=== PATIENT | male | born 1990 | race American Indian/Alaskan Native ===

== ENCOUNTER 2016-03-06 14:15 | Emergency (ER) | payer OTHER ==
[2016-03-06 20:01] VITALS: BP 133/85
--- NOTE | 2016-03-06 20:30 | Emergency Department Report ---
HPI - General Chief Complaint: Upper Respiratory Infection Time Seen by Provider: 03/06/16 20:27 - HPI HPI: Patient here complaining of possible syphilis and wants to be checked out. He said his partner has been diagnosed with syphilis. He also states he has of cold times one week. Complaining of cough and runny nose denies any fever or chills. Denies any nausea vomiting or diarrhea. Reports that he's having pain from his penis at 8 out of 10. Denies any urinary burning, frequency or urgency. Denies any abdominal or back pain. Patient said he just wants to be tested for syphilis. Patient is HIV positive. Denies any chest pain or shortness of breath. He denies any penile lesions or sores. Denies any penile discharge. ED Past Medical Hx - Past Medical History Previous Medical History?: Yes Hx Hypertension: No Hx CVA: No Hx Heart Attack/AMI: No Hx Congestive Heart Failure: No Hx Diabetes: No Hx Deep Vein Thrombosis: No Hx Pulmonary Embolism: No Hx GERD: No Hx Liver Disease: No Hx Renal Disease: No Hx Sickle Cell Disease: No Hx Arthritis: No Hx Headaches / Migraines: No Hx Seizures: Yes Hx Kidney Stones: No Hx Psychiatric Treatment: No Hx Asthma: No Hx COPD: No Hx Tuberculosis: No Hx Dementia: No Hx HIV: Yes - Surgical History Past Surgical History?: No Hx Coronary Stent: No Hx Open Heart Surgery: No Hx Pacemaker: No Hx Internal Defibrillator: No Hx Cholecystectomy: No Hx Appendectomy: No Hx Breast Surgery: No - Family History Family history: no significant - Social History Smoking Status: Current Every Day Smoker Substance Use Type: None - Medications Home Medications: Home Medications Medication Instructions Recorded Confirmed Last Taken Type Emtricitab/Rilpivirine/Tenofov 1 tab PO DAILY 08/28/15 08/28/15 Unknown History [Complera Tablet] Sulfamethoxazole/Trimethoprim 1 each PO BID #14 tablet 08/28/15 Unknown Rx [Bactrim DS TAB] Azithromycin [Zithromax Z-LUKE] 250 mg PO DAILY #6 tab 03/06/16 Unknown Rx guaiFENesin/CODEINE [Robitussin AC] 10 ml PO QHS #70 oral.liqd 03/06/16 Unknown Rx ED Review of Systems ROS: Stated complaint: SYPHLLIS/FLU SYMPTOMS Other details as noted in HPI Comment: All other systems reviewed and negative Constitutional: denies: chills, fever, weakness Eyes: denies: eye discharge ENT: congestion. denies: ear pain, throat pain Respiratory: cough. denies: shortness of breath, SOB with exertion, SOB at rest , stridor, wheezing Cardiovascular: denies: chest pain, palpitations, edema, syncope Gastrointestinal: denies: abdominal pain, nausea, vomiting, diarrhea Genitourinary: denies: urgency, dysuria, frequency, hematuria, discharge, testicular pain, testicular mass Skin: denies: rash Neurological: denies: headache, weakness, numbness, paresthesias, confusion, abnormal gait, vertigo Physical Exam - Physical Exam Vital Signs: Vital Signs 03/06/16 03/06/16 14:42 20:00 Temperature 98.3 F 98.3 F Pulse Rate 89 87 Respiratory 16 16 Rate Blood Pressure 142/100 Blood Pressure 133/85 [Right] O2 Sat by Pulse 99 100 Oximetry General: This is a 25-year-old male well-nourished well-developed in no acute distress. Physical Exam: Head: Normocephalic atraumatic Mouth: Moist, no pharyngeal exudate or erythema. Uvula is midline and oral airway is patent. No gingival enlargement or dental tenderness. No facial swelling. No peritonsillar abscesses. Neck: Supple, no C-spine tenderness, no tracheal deviation. Nontender to palpate. no adenopathy Ears: Bilateral TMs congested without erythema .bilateral EAC without any redness swelling or drainage Eyes: Bilateral pupils equal and reactive to light, bilateral EOM intact. Bilateral sclera and conjunctiva without injection. Normal accommodation Nose: Mucosa moist, positive congestion no erythema. Positive clear drainage. maxillary and frontal sinus non-tender to palpate. Lungs: clear to auscultate bilaterally no rhonchi wheezes or rales. Normal work of breathing . Dry cough extremity; No CCE. +2 pulses. No neurovascular compromise Cardiovascular: S1-S2, regular rate rhythm. No murmurs. Skin: clean Dry and intact no rash no lesions Psych: [Normal mood and behavior ED Course Vital Signs 03/06/16 03/06/16 14:42 20:00 Temperature 98.3 F 98.3 F Pulse Rate 89 87 Respiratory 16 16 Rate Blood Pressure 142/100 Blood Pressure 133/85 [Right] O2 Sat by Pulse 99 100 Oximetry - Reevaluation(s) Reevaluation #1: 03/07/16 03:35 Patient had an uneventful ED stay. ED Medical Decision Making - Lab Data RPR pending - Radiology Data Radiology results: report reviewed Chest x-ray revealed no acute cardiopulmonary processes - Medical Decision Making ED course: Patient had RPR level drawn and I discussed with him that test will be done in the morning. I explained to him that lab usually does syphilis tests and mornings. Discussed with him that he will need to come back with his ID to medical record to get test and if he is positive for syphilis been he will need to be treated and he can give treated in emergency room. I also discussed with patient that his chest x-ray was negative for pneumonia he has upper respiratory tract infection and I will put him on antibiotic due to is immunocompromised state. He force understanding of discharge instruction and discharged home with prescription for azithromycin and guaifenesin with codeine Critical care attestation.: If time is entered above; I have spent that time in minutes in the direct care of this critically ill patient, excluding procedure time. ED Disposition Clinical Impression: Upper respiratory infection, acute, Cough, Exposure to syphilis Disposition: DISCHARGED TO HOME OR SELFCARE Is pt being admited?: No Does the pt Need Aspirin: No Condition: Stable Instructions: Upper Respiratory Infection (ED), Acute Cough (ED) Additional Instructions: Please return to the emergency room at about 5 PM tomorrow for check on your lab results. Please practice safe sex. Please take medication as prescribed. Please schedule appointment with primary care physician that I referred you to. Prescriptions: guaiFENesin/CODEINE [Robitussin AC] 10 ml PO QHS #70 oral.liqd Azithromycin [Zithromax Z-LUKE] 250 mg PO DAILY #6 tab Referrals: PRIMARY CAREMD [Primary Care Provider] - 3-5 Days TEREZA CARMONA MD [Staff Physician] - 2-3 Days Forms: Accompanied Note, Work/School Release Form(ED)
--- NOTE | 2016-03-06 22:21 | XRay Report ---
FINAL REPORT PROCEDURE: XR CHEST ROUTINE 2V TECHNIQUE: PA and lateral chest radiographs were obtained. CPT 04728 HISTORY: cough COMPARISON: No prior studies are available for comparison. FINDINGS: Heart: Normal contour. Mediastinum/Vessels: Normal contour. Lungs/Pleural space: No infiltrate, effusion, or pneumothorax. Bony thorax: No acute osseous abnormality. Other: IMPRESSION: No pulmonary infiltrates are identified.
== END 2016-03-06 22:13 | disposition home or self-care (01) ==
LOC: ED 14:15
DX: J06.9 Acute upper respiratory infection, unspecified (principal); R56.9 Unspecified convulsions; F17.200 Nicotine dependence, unspecified, uncomplicated; Z20.2 Contact with and (suspected) exposure to infections with a predominantly sexual mode of transmission; Z21 Asymptomatic human immunodeficiency virus [HIV] infection status
CPT/HCPCS: 36415; 71020; 86592; 99283

== ENCOUNTER 2016-03-07 17:49 | Emergency (ER) | payer OTHER ==
[2016-03-07 18:20] VITALS: BP 137/86
== END 2016-03-08 04:36 | disposition left against medical advice (07) ==
LOC: ED 17:49
DX: Z20.2 Contact with and (suspected) exposure to infections with a predominantly sexual mode of transmission (principal); Z53.21 Procedure and treatment not carried out due to patient leaving prior to being seen by health care provider

== ENCOUNTER 2016-07-08 01:37 | Emergency (ER) | payer SELFPAY ==
[2016-07-08] MEDS ORDERED: TYLENOL ONE (02:34)
[2016-07-08] MEDS ORDERED: TYLENOL PO ONE (02:35)
--- NOTE | 2016-07-08 04:05 | XRay Report ---
FINAL REPORT PROCEDURE: XR WRIST 3 RT TECHNIQUE: RIGHT wrist radiographs, including AP, lateral, oblique, and navicular views. HISTORY: Impact, laceration, send for report COMPARISON: No prior studies are available for comparison. FINDINGS: Fracture(s)and/or Dislocation(s): None. Alignment: Normal. Joint space(s): Normal. Soft tissues: Normal. Bone mineralization: Normal. Foreign bodies: None. IMPRESSION: Normal Examination
--- NOTE | 2016-07-08 04:06 | XRay Report ---
FINAL REPORT PROCEDURE: XR HAND 3 RT TECHNIQUE: RIGHT hand radiographs, AP, lateral, and oblique views. CPT 49339-YY HISTORY: Impact, laceration, send for report COMPARISON: No prior studies are available for comparison. FINDINGS: Fracture (s) and/or Dislocation(s): None . Alignment: Normal . Joint space(s): Normal . Soft tissues: Normal . Bone mineralization: Normal . Foreign bodies: None . IMPRESSION: Normal Examination .
--- NOTE | 2016-07-08 04:08 | XRay Report ---
FINAL REPORT PROCEDURE: XR FOREARM RT TECHNIQUE: RIGHT forearm radiographs, AP and lateral views. CPT 13179 HISTORY: Impact, laceration, send for report COMPARISON: No prior studies are available for comparison. FINDINGS: Fracture (s) and/or Dislocation(s): None . Joint space(s): Normal . Soft tissues: Normal . Bone mineralization: Normal . Foreign bodies: None . IMPRESSION: Normal Examination
[2016-07-08] MEDS ORDERED: NORCO 5/325 PO ONE (06:05)
[2016-07-08] MEDS ORDERED: NORCO 5/325 ONE (06:05)
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
[2016-07-08 07:16] VITALS: BP 148/94
== END 2016-07-08 07:20 | disposition home or self-care (01) ==
LOC: ED 01:37
DX: S51.811A Laceration without foreign body of right forearm, initial encounter (principal); F17.200 Nicotine dependence, unspecified, uncomplicated; F12.10 Cannabis abuse, uncomplicated; W25.XXXA Contact with sharp glass, initial encounter; Y93.89 Activity, other specified; Y92.89 Other specified places as the place of occurrence of the external cause; Y99.8 Other external cause status

== ENCOUNTER 2021-07-22 01:56 | Inpatient (IN) | payer SELFPAY ==
[2021-07-22] MEDS ORDERED: HALOPERIDOL LACTATE 5 MG/1 ML INJ ONE (01:59)
[2021-07-22] MEDS ORDERED: diphenhydrAMINE 50 MG/ML VIAL ONE (02:00)
[2021-07-22] MEDS ORDERED: LORazepam 2 MG/ML VIAL ONE (02:00)
[2021-07-22] MEDS ORDERED: LORazepam 2 MG/ML VIAL IM PRN (02:01)
[2021-07-22] MEDS ORDERED: diphenhydrAMINE 50 MG/ML VIAL IM ONE (02:02)
--- NOTE | 2021-07-22 02:04 | Emergency Department Report ---
ED General Adult HPI - General Chief complaint: Altered Mental Status Stated complaint: psychosis Time Seen by Provider: 07/22/21 02:00 Source: patient, RN notes reviewed Mode of arrival: Stretcher Limitations: Altered Mental Status - History of Present Illness Initial comments: The patient was evaluated in the emergency department for symptoms described in the history of present illness. He/she was evaluated in the context of the global COVID-19 pandemic, which necessitated consideration that the patient might be at risk for infection with the virus that causes COVID-19. Institutional protocols and algorithms that pertain to the evaluation of p atients at risk for COVID-19 are in a state of rapid change based on information released by regulatory bodies including the CDC and federal and state organizations. These policies and algorithms were followed during the patient's care in the emergency department. Please note that these policies, procedures and recommendations changed on a rapid basis. The patient is a 31-year-old gentleman who presented to the emergency room acutely psychotic. Patient currently yelling, screaming, moving 4 extremities and is not interviewable. As per report from triage nurse, the patient ran into the emergency room while naked. He then started to crawl on the floor. He explained that he was having insects running all over him. The patient initially presented as psychotic and acutely delirious. The patient's does not demonstrate decision-making capacity. The patient is not accompanied by friends or family for collateral information or additional information. He was found to be febrile, to 101.4 degrees, tachycardic and diaphoretic. He is initially medicated with haloperidol, Ativan, and Benadryl. He remains agitated, anxious, uncooperative, flailing 4 extremities. No additional history is available at this time. His last known well time is not explicitly known. -: unknown - Related Data Home Medications Medication Instructions Recorded Confirmed Last Taken Emtricita/Rilpivirine/Tenof Df 1 tab PO DAILY 08/28/15 08/28/15 Unknown [Complera Tablet] Previous Rx's Medication Instructions Recorded Last Taken Type Sulfamethoxazole/Trimethoprim 1 each PO BID #14 tablet 08/28/15 Unknown Rx [Bactrim DS TAB] Azithromycin [Zithromax Z-LUKE] 250 mg PO DAILY #6 tab 03/06/16 Unknown Rx guaiFENesin/CODEINE [Robitussin AC] 10 ml PO QHS #70 oral.liqd 03/06/16 Unknown Rx Ibuprofen [Motrin] 600 mg PO Q8H PRN #30 tablet 07/08/16 Unknown Rx Neomycn/Bacitrc/Polymyx/Pramox 28 gm TP BID #1 oint...g. 07/08/16 Unknown Rx [Triple Antibioti-Pain Rlf Oint] cephALEXin [Keflex] 500 mg PO Q12HR #10 cap 07/08/16 Unknown Rx Allergies Allergy/AdvReac Type Severity Reaction Status Date / Time No Known Allergies Allergy Verified 08/08/13 03:03 ED Review of Systems ROS: Stated complaint: DRUGS Other details as noted in HPI Comment: Unobtainable due to pts medical conditions ED Past Medical Hx - Past Medical History Hx Hypertension: No Hx CVA: No Hx Heart Attack/AMI: No Hx Congestive Heart Failure: No Hx Diabetes: No Hx Deep Vein Thrombosis: No Hx Pulmonary Embolism: No Hx GERD: No Hx Liver Disease: No Hx Renal Disease: No Hx Sickle Cell Disease: No Hx Arthritis: No Hx Headaches / Migraines: No Hx Seizures: Yes Hx Kidney Stones: No Hx Psychiatric Treatment: No Hx Asthma: No Hx COPD: No Hx Tuberculosis: No Hx Dementia: No Hx HIV: Yes - Surgical History Hx Coronary Stent: No Hx Open Heart Surgery: No Hx Pacemaker: No Hx Internal Defibrillator: No Hx Cholecystectomy: No Hx Appendectomy: No Hx Breast Surgery: No - Social History Smoking Status: Current Every Day Smoker Substance Use Type: Marijuana - Medications Home Medications: Home Medications Medication Instructions Recorded Confirmed Last Taken Type Emtricita/Rilpivirine/Tenof Df 1 tab PO DAILY 08/28/15 08/28/15 Unknown History [Complera Tablet] Sulfamethoxazole/Trimethoprim 1 each PO BID #14 tablet 08/28/15 Unknown Rx [Bactrim DS TAB] Azithromycin [Zithromax Z-LUKE] 250 mg PO DAILY #6 tab 03/06/16 Unknown Rx guaiFENesin/CODEINE [Robitussin AC] 10 ml PO QHS #70 oral.liqd 03/06/16 Unknown Rx Ibuprofen [Motrin] 600 mg PO Q8H PRN #30 tablet 07/08/16 Unknown Rx Neomycn/Bacitrc/Polymyx/Pramox 28 gm TP BID #1 oint...g. 07/08/16 Unknown Rx [Triple Antibioti-Pain Rlf Oint] cephALEXin [Keflex] 500 mg PO Q12HR #10 cap 07/08/16 Unknown Rx ED Physical Exam - General Limitations: Altered Mental Status General appearance: anxious, in distress - Head Head exam: Present: atraumatic, normocephalic - Eye Eye exam: Present: normal appearance, EOMI - ENT ENT exam: Present: normal orophraynx, mucous membranes moist, normal external ear exam - Neck Neck exam: Present: normal inspection, full ROM. Absent: tenderness, meningismus - Respiratory Respiratory exam: Present: normal lung sounds bilaterally. Absent: respiratory distress, wheezes, rales, rhonchi, stridor, decreased breath sounds - Cardiovascular Cardiovascular Exam: Present: normal rhythm, tachycardia, normal heart sounds. Absent: bradycardia, irregular rhythm, systolic murmur, diastolic murmur, rubs, gallop - GI/Abdominal GI/Abdominal exam: Present: soft. Absent: distended, tenderness, guarding, rebound, rigid, pulsatile mass - Rectal Rectal exam: Present: normal inspection - exam: Present: normal inspection External exam: Present: normal external exam - Extremities Exam Extremities exam: Present: normal inspection, full ROM, other (2+ pulses noted in the bilateral upper and lower extremities. There is no palpable cord. negative Homans sign. Muscular compartments are soft. The pelvis is stable.). Absent: pedal edema, calf tenderness - Back Exam Back exam: Present: normal inspection. Absent: tenderness, CVA tenderness (R), CVA tenderness (L), paraspinal tenderness, vertebral tenderness - Neurological Exam Neurological exam: Present: altered, other (Patient yelling and screaming. Flailing extremities. Making nonsensical statements. 5/5 strength in 4 extremities.) - Psychiatric Psychiatric exam: Present: agitated, anxious - Skin Skin exam: Present: warm, dry, intact, normal color. Absent: rash ED Course Vital Signs 07/22/21 07/22/21 02:15 03:27 Temperature 101.4 F H Pulse Rate 155 H Respiratory 42 H Rate Blood Pressure 114/78 O2 Sat by Pulse 97 99 Oximetry - Reevaluation(s) Reevaluation #1: 07/22/21 03:47 Differential diagnosis, include not limited to: Meningitis, encephalitis, toxic encephalopathy, metabolic encephalopathy Assessment and plan: 31-year-old gentleman presenting with acute febrile illness, delirium, agitation, diaphoresis. Initially medicated with haloperidol, Ativan and Geodon. Still agitated, combative and uncooperative, and lacks decision-making capacity. Given concern for meningitis/encephalitis, time sensitive nature, need to establish IV access, and initiate IV antibiotic therapy as well as fluids, in conjunction with concern that repeat sedation to dangers, decision made to protect airway, and intubate for patient's safety, acquisition of appropriate diagnostic studies, including spinal tap, and administration of fluids, antibiotics and supportive care. Patient intubated by myself with 1 attempt, and no obvious complications. Given that patient presents as acutely febrile and delirious/septic, he is emergently and administratively consented by myself for airway management, as well as spinal tap. Laboratory studies are reviewed and appreciated. X-ray of the chest is reviewed and appreciated. Noncontrast CT scan of the brain is pending. I discussed the patient's history, physical, clinical impression with both hospital physician, Dr. Elma Mitchell, As well as critical care physician, Dr. Shae Batemanoke The chiropractor sole practitioner agrees to consult on the patient, and agrees with admission into the intensive care unit. The hospital physician will admit this patient to the ICU. Patient is placed on a 1013 by myself, once medically optimized, defer to inpatient team to further follow-up on psychiatric recommendations 07/22/21 04:36 CT scan of the brain negative for acute findings. Lumbar puncture attempted, please see procedure note. Unsuccessful. Hospital team updated. RPR/syphilis screen appreciated. Defer to inpatient team to further follow-up and manage. - Intubation Time Out Performed: No (Emergency situation) Sedative: Ketamine (500 mg IM) Mg Given: 500 Paralytic: Rocuronium (150 mg) Laryngoscope: fiberoptic video scope Size: 4 ET Tube Size: 7.5 Tube Secured Depth (cm): 24 Tube Secured Location: lips Tube Placement Confirmation: visualized tube passing t, equal breath sounds bilat, no breath sounds over epi Patient Tolerated Procedure: well Intubation Complications: none Additional Comments: Patient placed on nasal cannula at 15 L/min. Receives [id number] ventilation. Received 500 mg of IM ketamine. Received 150 mg of intravenous rocuronium. Video laryngoscopy performed with a S4 curved video laryngoscope blade. A 7.5 endotracheal tube is gently inserted into the trachea under direct visualizat ion. Helium Arc Welder balloon inflated by respiratory therapy. There is appropriate end- tidal capnography color change. Breath sounds are appreciated bilaterally. No obvious complications - Lumbar Puncture Consent Obtained: emergent situation Indication for Procedure: headache, fever work up, change in mental status Patient Position: left lateral decubitus Skin Prep: Povidone-Iodine 1% Local Anesthetic Used: Lidocaine 1% Amount of anesthesia used (mls): 8 Spinal Needle Gauge: 20G Spinal Needle Length: 3in Interspace Used: L4-L5 Complications: unable to obtain CSF Patient Tolerated Procedure: well ED Medical Decision Making - Lab Data Result diagrams: 07/22/21 02:45 07/22/21 02:45 Vital Signs 07/22/21 07/22/21 02:15 03:27 Temperature 101.4 F H Pulse Rate 155 H Respiratory 42 H Rate Blood Pressure 114/78 O2 Sat by Pulse 97 99 Oximetry Lab Results 07/22/21 07/22/21 07/22/21 Range/Units 02:45 02:45 02:45 WBC 7.6 (4.5-11.0) K/mm3 RBC 5.43 H (3.65-5.03) M/mm3 Hgb 12.4 (11.8-15.2) gm/dl Hct 39.7 (35.5-45.6) % MCV 73 L (84-94) fl MCH 23 L (28-32) pg MCHC 31 L (32-34) % RDW 15.5 H (13.2-15.2) % Plt Count 245 (140-440) K/mm3 Lymph % (Auto) 21.1 (13.4-35.0) % Mellette % (Auto) 7.9 H (0.0-7.3) % Eos % (Auto) 0.8 (0.0-4.3) % Baso % (Auto) 0.2 (0.0-1.8) % Lymph # (Auto) 1.6 (1.2-5.4) K/mm3 Mellette # (Auto) 0.6 (0.0-0.8) K/mm3 Eos # (Auto) 0.1 (0.0-0.4) K/mm3 Baso # (Auto) 0.0 (0.0-0.1) K/mm3 Seg Neutrophils % 70.0 (40.0-70.0) % Seg Neutrophils # 5.3 (1.8-7.7) K/mm3 PT (12.2-14.9) Sec. INR (0.87-1.13) APTT (24.2-36.6) Sec. ABG pH (7.350-7.450) pH Units ABG pCO2 mm Hg ABG pO2 (80.0-90.0) mm Hg ABG HCO3 (20.0-26.0) mmol/L ABG O2 Saturation (95.0-99.0) % ABG O2 Content (0.0-44) ABG Base Excess (-2.0-3.0) mmol/L ABG Hemoglobin (14.0-18.0) gm/dl ABG Carboxyhemoglobin (0.0-5.0) % ABG Methemoglobin (0.0-1.5) % Oxyhemoglobin (95.0-99.0) % FiO2 % Sodium 141 (137-145) mmol/L Potassium 4.0 (3.6-5.0) mmol/L Chloride 99.9 (98-107) mmol/L Carbon Dioxide 16 L (22-30) mmol/L Anion Gap 29 mmol/L BUN 12 (9-20) mg/dL Creatinine 1.5 H (0.8-1.3) mg/dL Estimated GFR > 60 ml/min BUN/Creatinine Ratio 8 % Glucose 89 (75-100) mg/dL Calcium 9.3 (8.4-10.2) mg/dL Total Bilirubin 0.50 (0.1-1.2) mg/dL AST 29 (5-40) units/L ALT 19 (7-56) units/L Alkaline Phosphatase 67 (35-129) units/L Total Creatine Kinase (55-170) units/L Total Protein 8.3 H (6.3-8.2) g/dL Albumin 4.3 (3.9-5) g/dL Albumin/Globulin Ratio 1.1 % TSH 3.360 (0.270-4.200) mlU/mL Urine Color (Yellow) Urine Turbidity (Clear) Urine pH (5.0-7.0) Ur Specific Severance (1.003-1.030) Urine Protein (Negative) mg/dL Urine Glucose (UA) (Negative) mg/dL Urine Ketones (Negative) mg/dL Urine Blood (Negative) Urine Nitrite (Negative) Urine Bilirubin (Negative) Urine Urobilinogen (<2.0) mg/dL Ur Leukocyte Esterase (Negative) Urine WBC (Auto) (0.0-6.0) /HPF Urine RBC (Auto) (0.0-6.0) /HPF U Epithel Cells (Auto) (0-13.0) /HPF Urine Bacteria (Auto) (Negative) /HPF Urine Mucus /HPF Salicylates (2.8-20.0) mg/dL Urine Opiates Screen Urine Methadone Screen Acetaminophen (10.0-30.0) ug/mL Ur Barbiturates Screen Ur Phencyclidine Scrn Ur Amphetamines Screen U Benzodiazepines Scrn Urine Cocaine Screen U Marijuana (THC) Screen Plasma/Serum Alcohol (0-0.07) % Syphilis IgG/IgM Ab (NonReactive) 07/22/21 07/22/21 07/22/21 Range/Units 02:45 02:45 02:45 WBC (4.5-11.0) K/mm3 RBC (3.65-5.03) M/mm3 Hgb (11.8-15.2) gm/dl Hct (35.5-45.6) % MCV (84-94) fl MCH (28-32) pg MCHC (32-34) % RDW (13.2-15.2) % Plt Count (140-440) K/mm3 Lymph % (Auto) (13.4-35.0) % Mellette % (Auto) (0.0-7.3) % Eos % (Auto) (0.0-4.3) % Baso % (Auto) (0.0-1.8) % Lymph # (Auto) (1.2-5.4) K/mm3 Mellette # (Auto) (0.0-0.8) K/mm3 Eos # (Auto) (0.0-0.4) K/mm3 Baso # (Auto) (0.0-0.1) K/mm3 Seg Neutrophils % (40.0-70.0) % Seg Neutrophils # (1.8-7.7) K/mm3 PT (12.2-14.9) Sec. INR (0.87-1.13) APTT (24.2-36.6) Sec. ABG pH (7.350-7.450) pH Units ABG pCO2 mm Hg ABG pO2 (80.0-90.0) mm Hg ABG HCO3 (20.0-26.0) mmol/L ABG O2 Saturation (95.0-99.0) % ABG O2 Content (0.0-44) ABG Base Excess (-2.0-3.0) mmol/L ABG Hemoglobin (14.0-18.0) gm/dl ABG Carboxyhemoglobin (0.0-5.0) % ABG Methemoglobin (0.0-1.5) % Oxyhemoglobin (95.0-99.0) % FiO2 % Sodium (137-145) mmol/L Potassium (3.6-5.0) mmol/L Chloride (98-107) mmol/L Carbon Dioxide (22-30) mmol/L Anion Gap mmol/L BUN (9-20) mg/dL Creatinine (0.8-1.3) mg/dL Estimated GFR ml/min BUN/Creatinine Ratio % Glucose (75-100) mg/dL Calcium (8.4-10.2) mg/dL Total Bilirubin (0.1-1.2) mg/dL AST (5-40) units/L ALT (7-56) units/L Alkaline Phosphatase (35-129) units/L Total Creatine Kinase 843 H (55-170) units/L Total Protein (6.3-8.2) g/dL Albumin (3.9-5) g/dL Albumin/Globulin Ratio % TSH (0.270-4.200) mlU/mL Urine Color (Yellow) Urine Turbidity (Clear) Urine pH (5.0-7.0) Ur Specific Severance (1.003-1.030) Urine Protein (Negative) mg/dL Urine Glucose (UA) (Negative) mg/dL Urine Ketones (Negative) mg/dL Urine Blood (Negative) Urine Nitrite (Negative) Urine Bilirubin (Negative) Urine Urobilinogen (<2.0) mg/dL Ur Leukocyte Esterase (Negative) Urine WBC (Auto) (0.0-6.0) /HPF Urine RBC (Auto) (0.0-6.0) /HPF U Epithel Cells (Auto) (0-13.0) /HPF Urine Bacteria (Auto) (Negative) /HPF Urine Mucus /HPF Salicylates < 0.3 L (2.8-20.0) mg/dL Urine Opiates Screen Urine Methadone Screen Acetaminophen 5.0 L (10.0-30.0) ug/mL Ur Barbiturates Screen Ur Phencyclidine Scrn Ur Amphetamines Screen U Benzodiazepines Scrn Urine Cocaine Screen U Marijuana (THC) Screen Plasma/Serum Alcohol (0-0.07) % Syphilis IgG/IgM Ab (NonReactive) 07/22/21 07/22/21 07/22/21 Range/Units 02:45 02:45 02:45 WBC (4.5-11.0) K/mm3 RBC (3.65-5.03) M/mm3 Hgb (11.8-15.2) gm/dl Hct (35.5-45.6) % MCV (84-94) fl MCH (28-32) pg MCHC (32-34) % RDW (13.2-15.2) % Plt Count (140-440) K/mm3 Lymph % (Auto) (13.4-35.0) % Mellette % (Auto) (0.0-7.3) % Eos % (Auto) (0.0-4.3) % Baso % (Auto) (0.0-1.8) % Lymph # (Auto) (1.2-5.4) K/mm3 Mellette # (Auto) (0.0-0.8) K/mm3 Eos # (Auto) (0.0-0.4) K/mm3 Baso # (Auto) (0.0-0.1) K/mm3 Seg Neutrophils % (40.0-70.0) % Seg Neutrophils # (1.8-7.7) K/mm3 PT 13.0 (12.2-14.9) Sec. INR 0.89 (0.87-1.13) APTT 25.8 (24.2-36.6) Sec. ABG pH (7.350-7.450) pH Units ABG pCO2 mm Hg ABG pO2 (80.0-90.0) mm Hg ABG HCO3 (20.0-26.0) mmol/L ABG O2 Saturation (95.0-99.0) % ABG O2 Content (0.0-44) ABG Base Excess (-2.0-3.0) mmol/L ABG Hemoglobin (14.0-18.0) gm/dl ABG Carboxyhemoglobin (0.0-5.0) % ABG Methemoglobin (0.0-1.5) % Oxyhemoglobin (95.0-99.0) % FiO2 % Sodium (137-145) mmol/L Potassium (3.6-5.0) mmol/L Chloride (98-107) mmol/L Carbon Dioxide (22-30) mmol/L Anion Gap mmol/L BUN (9-20) mg/dL Creatinine (0.8-1.3) mg/dL Estimated GFR ml/min BUN/Creatinine Ratio % Glucose (75-100) mg/dL Calcium (8.4-10.2) mg/dL Total Bilirubin (0.1-1.2) mg/dL AST (5-40) units/L ALT (7-56) units/L Alkaline Phosphatase (35-129) units/L Total Creatine Kinase (55-170) units/L Total Protein (6.3-8.2) g/dL Albumin (3.9-5) g/dL Albumin/Globulin Ratio % TSH (0.270-4.200) mlU/mL Urine Color (Yellow) Urine Turbidity (Clear) Urine pH (5.0-7.0) Ur Specific Severance (1.003-1.030) Urine Protein (Negative) mg/dL Urine Glucose (UA) (Negative) mg/dL Urine Ketones (Negative) mg/dL Urine Blood (Negative) Urine Nitrite (Negative) Urine Bilirubin (Negative) Urine Urobilinogen (<2.0) mg/dL Ur Leukocyte Esterase (Negative) Urine WBC (Auto) (0.0-6.0) /HPF Urine RBC (Auto) (0.0-6.0) /HPF U Epithel Cells (Auto) (0-13.0) /HPF Urine Bacteria (Auto) (Negative) /HPF Urine Mucus /HPF Salicylates (2.8-20.0) mg/dL Urine Opiates Screen Urine Methadone Screen Acetaminophen (10.0-30.0) ug/mL Ur Barbiturates Screen Ur Phencyclidine Scrn Ur Amphetamines Screen U Benzodiazepines Scrn Urine Cocaine Screen U Marijuana (THC) Screen Plasma/Serum Alcohol < 0.01 (0-0.07) % Syphilis IgG/IgM Ab Reactive A (NonReactive) 07/22/21 07/22/21 07/22/21 Range/Units 03:00 03:09 Unknown WBC (4.5-11.0) K/mm3 RBC (3.65-5.03) M/mm3 Hgb (11.8-15.2) gm/dl Hct (35.5-45.6) % MCV (84-94) fl MCH (28-32) pg MCHC (32-34) % RDW (13.2-15.2) % Plt Count (140-440) K/mm3 Lymph % (Auto) (13.4-35.0) % Mellette % (Auto) (0.0-7.3) % Eos % (Auto) (0.0-4.3) % Baso % (Auto) (0.0-1.8) % Lymph # (Auto) (1.2-5.4) K/mm3 Mellette # (Auto) (0.0-0.8) K/mm3 Eos # (Auto) (0.0-0.4) K/mm3 Baso # (Auto) (0.0-0.1) K/mm3 Seg Neutrophils % (40.0-70.0) % Seg Neutrophils # (1.8-7.7) K/mm3 PT (12.2-14.9) Sec. INR (0.87-1.13) APTT (24.2-36.6) Sec. ABG pH 7.301 L (7.350-7.450) pH Units ABG pCO2 40.9 mm Hg ABG pO2 458.9 H (80.0-90.0) mm Hg ABG HCO3 19.7 L (20.0-26.0) mmol/L ABG O2 Saturation 99.6 H (95.0-99.0) % ABG O2 Content 16.9 (0.0-44) ABG Base Excess -6.3 L (-2.0-3.0) mmol/L ABG Hemoglobin 11.4 L (14.0-18.0) gm/dl ABG Carboxyhemoglobin 1.5 (0.0-5.0) % ABG Methemoglobin 0.6 (0.0-1.5) % Oxyhemoglobin 97.5 (95.0-99.0) % FiO2 100 % Sodium (137-145) mmol/L Potassium (3.6-5.0) mmol/L Chloride (98-107) mmol/L Carbon Dioxide (22-30) mmol/L Anion Gap mmol/L BUN (9-20) mg/dL Creatinine (0.8-1.3) mg/dL Estimated GFR ml/min BUN/Creatinine Ratio % Glucose (75-100) mg/dL Calcium (8.4-10.2) mg/dL Total Bilirubin (0.1-1.2) mg/dL AST (5-40) units/L ALT (7-56) units/L Alkaline Phosphatase (35-129) units/L Total Creatine Kinase (55-170) units/L Total Protein (6.3-8.2) g/dL Albumin (3.9-5) g/dL Albumin/Globulin Ratio % TSH (0.270-4.200) mlU/mL Urine Color Yellow (Yellow) Urine Turbidity Clear (Clear) Urine pH 5.0 (5.0-7.0) Ur Specific Severance 1.024 (1.003-1.030) Urine Protein 30 mg/dl (Negative) mg/dL Urine Glucose (UA) Neg (Negative) mg/dL Urine Ketones Tr (Negative) mg/dL Urine Blood Neg (Negative) Urine Nitrite Neg (Negative) Urine Bilirubin Neg (Negative) Urine Urobilinogen 4.0 (<2.0) mg/dL Ur Leukocyte Esterase Neg (Negative) Urine WBC (Auto) 6.0 (0.0-6.0) /HPF Urine RBC (Auto) 2.0 (0.0-6.0) /HPF U Epithel Cells (Auto) < 1.0 (0-13.0) /HPF Urine Bacteria (Auto) 1+ (Negative) /HPF Urine Mucus Few /HPF Salicylates (2.8-20.0) mg/dL Urine Opiates Screen Urine Methadone Screen Acetaminophen 5.0 L (10.0-30.0) ug/mL Ur Barbiturates Screen Ur Phencyclidine Scrn Ur Amphetamines Screen U Benzodiazepines Scrn Urine Cocaine Screen U Marijuana (THC) Screen Plasma/Serum Alcohol (0-0.07) % Syphilis IgG/IgM Ab (NonReactive) 07/22/21 Range/Units Unknown WBC (4.5-11.0) K/mm3 RBC (3.65-5.03) M/mm3 Hgb (11.8-15.2) gm/dl Hct (35.5-45.6) % MCV (84-94) fl MCH (28-32) pg MCHC (32-34) % RDW (13.2-15.2) % Plt Count (140-440) K/mm3 Lymph % (Auto) (13.4-35.0) % Mellette % (Auto) (0.0-7.3) % Eos % (Auto) (0.0-4.3) % Baso % (Auto) (0.0-1.8) % Lymph # (Auto) (1.2-5.4) K/mm3 Mellette # (Auto) (0.0-0.8) K/mm3 Eos # (Auto) (0.0-0.4) K/mm3 Baso # (Auto) (0.0-0.1) K/mm3 Seg Neutrophils % (40.0-70.0) % Seg Neutrophils # (1.8-7.7) K/mm3 PT (12.2-14.9) Sec. INR (0.87-1.13) APTT (24.2-36.6) Sec. ABG pH (7.350-7.450) pH Units ABG pCO2 mm Hg ABG pO2 (80.0-90.0) mm Hg ABG HCO3 (20.0-26.0) mmol/L ABG O2 Saturation (95.0-99.0) % ABG O2 Content (0.0-44) ABG Base Excess (-2.0-3.0) mmol/L ABG Hemoglobin (14.0-18.0) gm/dl ABG Carboxyhemoglobin (0.0-5.0) % ABG Methemoglobin (0.0-1.5) % Oxyhemoglobin (95.0-99.0) % FiO2 % Sodium (137-145) mmol/L Potassium (3.6-5.0) mmol/L Chloride (98-107) mmol/L Carbon Dioxide (22-30) mmol/L Anion Gap mmol/L BUN (9-20) mg/dL Creatinine (0.8-1.3) mg/dL Estimated GFR ml/min BUN/Creatinine Ratio % Glucose (75-100) mg/dL Calcium (8.4-10.2) mg/dL Total Bilirubin (0.1-1.2) mg/dL AST (5-40) units/L ALT (7-56) units/L Alkaline Phosphatase (35-129) units/L Total Creatine Kinase (55-170) units/L Total Protein (6.3-8.2) g/dL Albumin (3.9-5) g/dL Albumin/Globulin Ratio % TSH (0.270-4.200) mlU/mL Urine Color (Yellow) Urine Turbidity (Clear) Urine pH (5.0-7.0) Ur Specific Severance (1.003-1.030) Urine Protein (Negative) mg/dL Urine Glucose (UA) (Negative) mg/dL Urine Ketones (Negative) mg/dL Urine Blood (Negative) Urine Nitrite (Negative) Urine Bilirubin (Negative) Urine Urobilinogen (<2.0) mg/dL Ur Leukocyte Esterase (Negative) Urine WBC (Auto) (0.0-6.0) /HPF Urine RBC (Auto) (0.0-6.0) /HPF U Epithel Cells (Auto) (0-13.0) /HPF Urine Bacteria (Auto) (Negative) /HPF Urine Mucus /HPF Salicylates (2.8-20.0) mg/dL Urine Opiates Screen Presumptive negative Urine Methadone Screen Presumptive negative Acetaminophen (10.0-30.0) ug/mL Ur Barbiturates Screen Presumptive negative Ur Phencyclidine Scrn Presumptive negative Ur Amphetamines Screen Presumptive positive U Benzodiazepines Scrn Presumptive negative Urine Cocaine Screen Presumptive negative U Marijuana (THC) Screen Presumptive positive Plasma/Serum Alcohol (0-0.07) % Syphilis IgG/IgM Ab (NonReactive) - Radiology Data Radiology results: pending, report reviewed, image reviewed CHEST 1 VIEW INDICATION / CLINICAL INFORMATION: ett placement. COMPARISON: Chest x-ray 03/06/2016 FINDINGS: SUPPORT DEVICES: Endotracheal tube terminates at the sternoclavicular junction. 7-8 cm above the star. Esophagogastric tube and left hemidiaphragm within the proximal fundus. HEART / MEDIASTINUM: No significant abnormality. LUNGS / PLEURA: No significant pulmonary abnormality. BONES: No significant osseous abnormality. ADDITIONAL FINDINGS: No significant additional findings. IMPRESSION: 1. No active cardiopulmonary disease. Tubes and lines as detailed. Signer Name: Kyle Avila II, MD Signed: 07/22 1:52 AM Workstation Name: [id number] Critical Care Time: Yes Critical care time in (mins) excluding proc time.: 45 Critical care attestation.: If time is entered above; I have spent that time in minutes in the direct care of this critically ill patient, excluding procedure time. ED Disposition Clinical Impression: Sepsis, Psychosis, Acute encephalopathy Disposition: ADMITTED INPATIENT Is pt being admited?: Yes Does the pt Need Aspirin: No Condition: Critical
[2021-07-22] MEDS ORDERED: cefTRIAXone/NS 2 GM/100 ML 2 GM/100 ML BAG IV ONE (02:08)
[2021-07-22] MEDS ORDERED: dexAMETHasone 20 MG/5 ML VIAL IV ONE (02:08)
[2021-07-22] MEDS ORDERED: SODIUM CHLORIDE 0.9% 1000 ML 1,000 ML IV ONE (02:09)
[2021-07-22] MEDS ORDERED: SODIUM CHLORIDE 0.9% 1000 ML 2,000 ML IV ONE (02:09)
[2021-07-22] MEDS: HALOPERIDOL LACTATE 5 MG/1 ML INJ IM PRN (02:10)
[2021-07-22] MEDS ORDERED: KETAMINE 500 MG/5 ML VIAL MDV ONE (02:13)
[2021-07-22] MEDS ORDERED: ROCURONIUM 50 MG/5 ML INJ IV ONE ×3 (02:13→03:22)
[2021-07-22] MEDS ORDERED: LIP THERAPY VASELINE TP PRN (02:26)
[2021-07-22] MEDS ORDERED: fentaNYL 100 MCG/2 ML INJ IV PRN (02:26)
[2021-07-22] MEDS ORDERED: LIDOCAINE (1%) 10 MG/1 ML VIAL 20 ML MDV INFILTRATI ONE (02:26)
[2021-07-22] MEDS ORDERED: MINERAL OIL/PETROLATUM, WHITE OPHTH OINT 3.5 GM OU PRN (02:26)
[2021-07-22] MEDS ORDERED: ACYCLOVIR 800 MG in SODIUM CHLORIDE 0.9% 100 ML IV ONE (02:38)
--- NOTE | 2021-07-22 02:56 | XRay Report ---
CHEST 1 VIEW INDICATION / CLINICAL INFORMATION: ett placement. COMPARISON: Chest x-ray 03/06/2016 FINDINGS: SUPPORT DEVICES: Endotracheal tube terminates at the sternoclavicular junction. 7-8 cm above the francois na. Esophagogastric tube and left hemidiaphragm within the proximal fundus. HEART / MEDIASTINUM: No significant abnormality. LUNGS / PLEURA: No significant pulmonary abnormality. BONES: No significant osseous abnormality. ADDITIONAL FINDINGS: No significant additional findings. IMPRESSION: 1. No active cardiopulmonary disease. Tubes and lines as detailed. Signer Name: Kyle Avila II, MD Signed: 07/22/2021 2:52 AM Workstation Name: [id number]
[2021-07-22 02:57] LABS: Basophils % (Auto) 0.2 % (0.0-1.8); Eosinophils # (Auto) 0.1 K/mm3 (0.0-0.4); Eosinophils % (Auto) 0.8 % (0.0-4.3); Hematocrit 39.7 % (35.5-45.6); Hemoglobin 12.4 gm/dl (11.8-15.2); Lymphocytes # (Auto) 1.6 K/mm3 (1.2-5.4); Lymphocytes % (Auto) 21.1 % (13.4-35.0); Mean Corpuscular HGB Conc 31 % (32-34); Mean Corpuscular Volume 73 fl (84-94); Monocytes # (Auto) 0.6 K/mm3 (0.0-0.8); Monocytes % (Auto) 7.9 % (0.0-7.3); Platelet Count 245 K/mm3 (140-440); Red Blood Count 5.43 M/mm3 (3.65-5.03); Red Cell Distribution Width 15.5 % (13.2-15.2)
[2021-07-22] MEDS ORDERED: fentaNYL DRIP Premix 2,000 MCG/100 ML BAG IV SCH (03:00)
[2021-07-22 03:04] LABS: Bacteria,Urine 1+ /HPF (Negative); Bilirubin,Urine NEG (Negative); Blood,Urine NEG (Negative); Color,Urine Yellow (Yellow); Mucus,Urine FEW /HPF
[2021-07-22 03:08] LABS: INR 0.89 (0.87-1.13)
[2021-07-22 03:08] LABS: Amphetamine Screen,Urine PRESUMPTIVE POSITIVE; Benzodiazepines Screen,Urine PRESUMPTIVE NEGATIVE; Cannabinoid Screen,Urine PRESUMPTIVE POSITIVE; Cocaine Screen,Urine PRESUMPTIVE NEGATIVE; Methadone Screen,Urine PRESUMPTIVE NEGATIVE; Opiate Screen,Urine PRESUMPTIVE NEGATIVE
[2021-07-22] MEDS ORDERED: VANCOMYCIN 1,500 MG in SODIUM CHLORIDE 0.9% 500 ML 500 ML IV ONE (03:08)
[2021-07-22 03:09] LABS: Partial Thromboplastin Time 25.8 Sec. (24.2-36.6)
[2021-07-22 03:20] LABS: Alanine Aminotransferase 19 units/L (7-56); Albumin 4.3 g/dL (3.9-5); BUN/Creatinine Ratio 8; Blood Urea Nitrogen 12 mg/dL (9-20); Calcium 9.3 mg/dL (8.4-10.2); Hemolysis Index 9
[2021-07-22] MEDS ORDERED: KETAMINE 500 MG/5 ML VIAL MDV IM ONE (03:22)
[2021-07-22 03:35] LABS: ABG Base Excess -6.3 mmol/L (-2.0-3.0); ABG HCO3 19.7 mmol/L (20.0-26.0); ABG Methemoglobin 0.6 % (0.0-1.5); ABG Oxygen Saturation 99.6 % (95.0-99.0); ABG PCO2 40.9 mm Hg; ABG PH 7.301 pH Units (7.350-7.450)
[2021-07-22] MEDS ORDERED: ACETAMINOPHEN 650 MG RECT SUPP PR ONE (03:36)
[2021-07-22 03:41] LABS: ABG PO2 458.9 mm Hg (80.0-90.0)
[2021-07-22] MEDS ORDERED: ONDANSETRON 4 MG/2 ML INJ IV PRN (04:03)
[2021-07-22] MEDS ORDERED: MORPHINE 2 MG/1 ML INJ IV PRN (04:03)
[2021-07-22] MEDS ORDERED: MORPHINE 4 MG/1 ML INJ IV PRN (04:03)
[2021-07-22] MEDS ORDERED: ACETAMINOPHEN 650 MG RECT SUPP PR PRN (04:03)
--- NOTE | 2021-07-22 04:12 | History and Physical Report ---
History of Present Illness Date of examination: 07/22/21 Date of admission: 07/22/2021 Chief complaint: Altered Mental Status History of present illness: 31-year-old -[place] male brought into the emergency room today with altered mental status. He was acutely delirious upon arrival in the emergency room. Most of the history was gotten from the ER staff as there was no family member patient currently intubated. He was said to be febrile to 101.4 F upon arrival, tachycardic and diaphoretic. Was also said to be acutely psychotic and subsequently intubated to protect his airway. Work-up in the emergency room today, CT scan of the head shows no acute abnormality. Chest x-ray shows no acute cardiopulmonary abnormality. Labs however shows lactic acid of 11.2, creatinine of 1.5, creatinine kinase of 843. Toxicology screen was positive for amphetamine, marijuana. An attempt was made to do a spinal tap by the ER physician over so successful. However, patient was commenced on empiric IV antibiotics for possible underlying meningitis. Past History Past Medical History: HIV/AIDS, seizures Past Surgical History: No surgical history Social history: smoking (Current daily smoker), other (Uses Marijuana) Family history: no significant family history Medications and Allergies Allergies Allergy/AdvReac Type Severity Reaction Status Date / Time No Known Allergies Allergy Verified 08/08/13 03:03 Home Medications Medication Instructions Recorded Confirmed Last Taken Type Emtricita/Rilpivirine/Tenof Df 1 tab PO DAILY 08/28/15 08/28/15 Unknown History [Complera Tablet] Sulfamethoxazole/Trimethoprim 1 each PO BID #14 tablet 08/28/15 Unknown Rx [Bactrim DS TAB] Azithromycin [Zithromax Z-LUKE] 250 mg PO DAILY #6 tab 03/06/16 Unknown Rx guaiFENesin/CODEINE [Robitussin AC] 10 ml PO QHS #70 oral.liqd 03/06/16 Unknown Rx Ibuprofen [Motrin] 600 mg PO Q8H PRN #30 tablet 07/08/16 Unknown Rx Neomycn/Bacitrc/Polymyx/Pramox 28 gm TP BID #1 oint...g. 07/08/16 Unknown Rx [Triple Antibioti-Pain Rlf Oint] cephALEXin [Keflex] 500 mg PO Q12HR #10 cap 07/08/16 Unknown Rx Active Meds: Active Medications Acetaminophen (Acetaminophen 650 Mg Rect Supp) 650 mg OK Q6H PRN PRN Reason: Pain MILD(1-3)/Fever >100.5/ALBERT Famotidine (Famotidine 20 Mg/2 Ml Inj) 20 mg IV BID AMOS Fentanyl (Fentanyl 100 Mcg/2 Ml Inj) 50 mcg IV Q10MIN PRN PRN Reason: ANALGESIA Haloperidol Lactate (Haloperidol Lactate 5 Mg/1 Ml Inj) 5 mg IM Q6HR PRN PRN Reason: Agitation Hydrophilic Ointment (Lip Therapy Vaseline) 1 applic TP Q2HR PRN PRN Reason: Dry Lips Vancomycin HCl 1,500 mg/ (Sodium Chloride) 530 mls @ 333 mls/hr IV ONCE ONE; Protocol Stop: 07/22/21 04:43 Fentanyl Citrate (Fentanyl Drip Premix) 2,000 mcg in 100 mls @ 3.43 mls/hr IV TITR AMOS; Protocol Propofol (Diprivan 10 Mg/Ml) 1,000 mg in 100 mls @ 12.348 mls/hr IV TITR AMOS; Protocol Last Admin: 07/22/21 03:10 Dose: 30 mcg/kg/min, 12.348 mls/hr Sodium Chloride (Nacl 0.9% 1000 Ml) 1,000 mls @ 75 mls/hr IV DIRECT AMOS Lorazepam (Lorazepam 2 Mg/Ml Vial) 2 mg IM Q4HR PRN PRN Reason: Agitation Morphine Sulfate (Morphine 2 Mg/1 Ml Inj) 2 mg IV Q4H PRN PRN Reason: Pain, Moderate (4-6) Morphine Sulfate (Morphine 4 Mg/1 Ml Inj) 4 mg IV Q4H PRN PRN Reason: Pain , Severe (7-10) Multi-Ingred Cream/Lotion/Oil/Oint (Mineral Oil/Petrolatum, White Ophth Oint 3.5 Gm) 1 applic OU Q4HR PRN PRN Reason: Dry Eye(s) Ondansetron HCl (Ondansetron 4 Mg/2 Ml Inj) 4 mg IV Q8H PRN PRN Reason: Nausea And Vomiting Senna/Docusate Sodium (Sennosides/Docusate Sodium 8.6/50 Mg Tab) 1 tab FEEDTUBE BID AMOS Sodium Chloride (Sodium Chloride 0.9% 10 Ml Flush Syringe) 10 ml IV BID AMOS Sodium Chloride (Sodium Chloride 0.9% 10 Ml Flush Syringe) 10 ml IV PRN PRN PRN Reason: LINE FLUSH Review of Systems ROS unobtainable: due to endotracheal tube, due to mental status Exam - Constitutional Vitals: Temp Pulse Resp BP Pulse Ox 101.4 F H 155 H 42 H 114/78 99 07/22/21 02:15 07/22/21 02:15 07/22/21 02:15 07/22/21 02:15 07/22/21 03:27 General appearance: Present: well-nourished, other (Intubated) - EENT Eyes: Present: PERRL, EOM intact. Absent: scleral icterus ENT: hearing intact, clear oral mucosa, dentition normal - Neck Neck: Present: supple, normal ROM - Respiratory Respiratory effort: normal Respiratory: bilateral: CTA - Cardiovascular Rhythm: regular Heart Sounds: Present: S1 & S2. Absent: systolic murmur, diastolic murmur, rub, click - Extremities Extremities: no ischemia, pulses intact, pulses symmetrical, No edema, normal temperature, normal color, Full ROM Peripheral Pulses: within normal limits - Abdominal General gastrointestinal: Present: soft, non-tender, non-distended, normal bowel sounds. Absent: mass - Integumentary Integumentary: Present: clear, warm, dry, normal turgor. Absent: rash - Musculoskeletal Musculoskeletal: other (Intubated) - Psychiatric Psychiatric: cooperative, other (Intubated and Sedated) - Neurologic Neurologic: other (Intubated and Sedated) Results - Labs CBC & Chem 7: 07/22/21 02:45 07/22/21 02:45 Labs: Abnormal lab results 07/22/21 07/22/21 07/22/21 Range/Units 02:45 02:45 02:45 RBC 5.43 H (3.65-5.03) M/mm3 MCV 73 L (84-94) fl MCH 23 L (28-32) pg MCHC 31 L (32-34) % RDW 15.5 H (13.2-15.2) % [place] % (Auto) 7.9 H (0.0-7.3) % ABG pH (7.350-7.450) pH Units ABG pO2 (80.0-90.0) mm Hg ABG HCO3 (20.0-26.0) mmol/L ABG O2 Saturation (95.0-99.0) % ABG Base Excess (-2.0-3.0) mmol/L ABG Hemoglobin (14.0-18.0) gm/dl Carbon Dioxide 16 L (22-30) mmol/L Creatinine 1.5 H (0.8-1.3) mg/dL Total Creatine Kinase (55-170) units/L Total Protein 8.3 H (6.3-8.2) g/dL Salicylates < 0.3 L (2.8-20.0) mg/dL Acetaminophen (10.0-30.0) ug/mL Syphilis IgG/IgM Ab (NonReactive) 07/22/21 07/22/21 07/22/21 Range/Units 02:45 02:45 02:45 RBC (3.65-5.03) M/mm3 MCV (84-94) fl MCH (28-32) pg MCHC (32-34) % RDW (13.2-15.2) % [place] % (Auto) (0.0-7.3) % ABG pH (7.350-7.450) pH Units ABG pO2 (80.0-90.0) mm Hg ABG HCO3 (20.0-26.0) mmol/L ABG O2 Saturation (95.0-99.0) % ABG Base Excess (-2.0-3.0) mmol/L ABG Hemoglobin (14.0-18.0) gm/dl Carbon Dioxide (22-30) mmol/L Creatinine (0.8-1.3) mg/dL Total Creatine Kinase 843 H (55-170) units/L Total Protein (6.3-8.2) g/dL Salicylates (2.8-20.0) mg/dL Acetaminophen 5.0 L (10.0-30.0) ug/mL Syphilis IgG/IgM Ab Reactive A (NonReactive) 07/22/21 07/22/21 Range/Units 03:00 03:09 RBC (3.65-5.03) M/mm3 MCV (84-94) fl MCH (28-32) pg MCHC (32-34) % RDW (13.2-15.2) % [place] % (Auto) (0.0-7.3) % ABG pH 7.301 L (7.350-7.450) pH Units ABG pO2 458.9 H (80.0-90.0) mm Hg ABG HCO3 19.7 L (20.0-26.0) mmol/L ABG O2 Saturation 99.6 H (95.0-99.0) % ABG Base Excess -6.3 L (-2.0-3.0) mmol/L ABG Hemoglobin 11.4 L (14.0-18.0) gm/dl Carbon Dioxide (22-30) mmol/L Creatinine (0.8-1.3) mg/dL Total Creatine Kinase (55-170) units/L Total Protein (6.3-8.2) g/dL Salicylates (2.8-20.0) mg/dL Acetaminophen 5.0 L (10.0-30.0) ug/mL Syphilis IgG/IgM Ab (NonReactive) Assessment and Plan Assessment: 1. Acute encephalopathy-unclear etiology. Possibly drug intoxication 2. Fever-unclear etiology 3. Metabolic acidosis 4. Elevated creatinine kinase Plan: 1. Patient has been intubated and sedated 2. We will commence on IV fluid normal saline 3. Patient placed on empiric IV antibiotics 4. Will await culture results 5. We will consider making further attempts in doing a spinal tap DVT prophylaxis: Subcutaneous heparin CODE STATUS: Full code
--- NOTE | 2021-07-22 04:26 | Cat Scan Report ---
CT HEAD WITHOUT CONTRAST INDICATION / CLINICAL INFORMATION: Medical Clearance Psych. TECHNIQUE: CT head was performed without administration of intravenous contrast. All CT scans at this location are performed using CT dose reduction for ALARA by means of automated exposure control. COMPARISON: None available. FINDINGS: CEREBRAL HEMISPHERES: There is no evidence of large territorial infarction or significant abnormality of mason-white matter differentiation. Ventricles within normal limits. No midline shift. Basal ciste rns patent. HEMORRHAGE: None. CEREBELLUM / BRAINSTEM: No significant abnormality. ORBITS: No significant abnormality. SOFT TISSUES: No significant abnormality. SKULL: No significant abnormality. PARANASAL SINUSES / MASTOID AIR CELLS: Normal as visualized. ADDITIONAL FINDINGS: None. IMPRESSION: 1. No acute intracranial abnormality. Signer Name: Kyle Avila II, MD Signed: 07/22/2021 4:22 AM Workstation Name: [id number]
[2021-07-22] MEDS: SODIUM CHLORIDE 0.9% 1000 ML 1,000 ML IV SCH (07:01)
[2021-07-22] MEDS ORDERED: AMPICILLIN/NS 2 GM/100 ML 2 GM/100 ML BAG IV SCH (09:00)
[2021-07-22] MEDS ORDERED: VANCOMYCIN PHARMACY TO DOSE IV SCH (09:00)
[2021-07-22] MEDS ORDERED: FAMOTIDINE 20 MG/2 ML INJ IV SCH (10:00)
--- NOTE | 2021-07-22 10:17 | Progress Note ---
<FREDDIE MOTTA - Last Filed: 07/22/21 16:23> Assessment and Plan Assessment and plan: This is a 31-year-old male with known past medical history of HIV/AIDS and seizures admitted fevers and AMS now on ventilatory support for airway protection Hospital Course to Date: 07/22: Intubated and sedated. Fevers improved, VSS. FL lumbar puncture pending. D/w ID continue current empiric IV abx and antiviral for now. Trend lactic acid. Per CCM post SAT and SBT tomorrow if patient remains stable. Assessment and Plan #Fevers-unclear etiology #Syphilis- Unclear if active vs Latent #Lactic Acidosis/Metabolic Acidosis #R/O Meningitis - Presented with tachycardia, high fevers, and elevated lactic acid - fevers improved, WBCs wnr - Cultures pending - Syphilis reactive, H/o HIV/AIDS - CXR shows no active cardiopulmonary disease - LP attempted in the ED but unsuccessful - FL lumbar puncture pending - ID consulted, appreciated recommendations - D/w ID continue current empiric IV abx and antiviral for now- Acyclovir, Rocephin, and Vanco - Continue IVF hydration - Continue to F/U on cultures - Trend lactic acid and CBC #Acute Hypoxic Respiratory Failure - Intubated in the ED on 07/22 for airway protection - CXR shows no active cardiopulmonary disease - Vent setting: PRVC-40%,6,18,450 - AM ABG pending - CCM consulted, appreciate recommendations - VAP bundle addressed - Aspiration precaution HOB above 30 - Possible SBT and SAT trials tomorrow - Daily ABG and CXR - Continue SPO2 monitoring for SPO2 goal above 95% #Acute Encephalopathy- Toxic vs Metabolic #Substances abuse #R/O Meningitis - probably due to substances abuse vs infectious process-R/o meningitis - presented with AMS, psychosis delirium - UDS + amphetamine, marijuana - CT scan of the head shows no acute abnormality - LP unsuccessful in the ED - Continue Empiric IV Abx and antiviral - Continue sedation, titrate for RASS goal 0 to -2 - Seizures precautions - Possible SAT and SBT tomorrow - PRN Analgesia for CPOT greater than 3 - Maintenance of sleep-wake cycle - Mental health/Psych also consulted #Acute Kidney Injury(NOAH) most likely vasomotor Nephropathy - Baseline unknown, presented with Scr. 1.5 - Continue IVF hydration - Strict intake and output - Avoid nephrotoxic medications; Renally dose medications - Conrad in place - Monitor and replace electrolytes as needed #GI/DVT Prophylaxis - PPI- Pepcid - Heparin SubQ - SCDs to bilateral lower extremities while in bed #Advance Care Planning - Disease education data, care plan, diagnoses, and prognosis were discussed with patient's mother, Elayne Castellano. All questions and concerns were address at this time. Patient's mother acknowledged understanding and agreement with care plan. Patient is a FULL code. +CCT 60 minutes History Interval history: Patient seen and examined at the bedside. Intubated and Sedated on propofol gtt, RASS-4. VSS. BERNARDO overnight Hospitalist Physical - Constitutional Vitals: Temp Pulse Resp BP Pulse Ox 97.7 F 89 18 146/82 100 07/22/21 06:00 07/22/21 08:50 07/22/21 06:22 07/22/21 08:50 07/22/21 08:50 General appearance: Present: no acute distress, well-nourished, other (Intubated and sedated) - EENT Eyes: Present: PERRL - Neck Neck: Present: normal ROM - Respiratory Respiratory effort: normal Respiratory: bilateral: diminished - Cardiovascular Rhythm: regular Heart Sounds: Present: S1 & S2 - Extremities Extremities: no ischemia, pulses intact, pulses symmetrical Peripheral Pulses: within normal limits - Abdominal General gastrointestinal: soft, non-distended, normal bowel sounds - Integumentary Integumentary: Present: warm, dry - Psychiatric Psychiatric: other (Intubated and Sedated) - Neurologic Neurologic: moves all extremities (nonpurposeful movement), other (Intubated and Sedated) - Allied Health Allied health notes reviewed: nursing Results - Labs CBC & Chem 7: 07/22/21 02:45 07/22/21 02:45 Labs: Laboratory Last Values WBC 7.6 K/mm3 (4.5-11.0) 07/22/21 02:45 RBC 5.43 M/mm3 (3.65-5.03) H 07/22/21 02:45 Hgb 12.4 gm/dl (11.8-15.2) 07/22/21 02:45 Hct 39.7 % (35.5-45.6) 07/22/21 02:45 MCV 73 fl (84-94) L 07/22/21 02:45 MCH 23 pg (28-32) L 07/22/21 02:45 MCHC 31 % (32-34) L 07/22/21 02:45 RDW 15.5 % (13.2-15.2) H 07/22/21 02:45 Plt Count 245 K/mm3 (140-440) 07/22/21 02:45 Lymph % (Auto) 21.1 % (13.4-35.0) 07/22/21 02:45 Oliver % (Auto) 7.9 % (0.0-7.3) H 07/22/21 02:45 Eos % (Auto) 0.8 % (0.0-4.3) 07/22/21 02:45 Baso % (Auto) 0.2 % (0.0-1.8) 07/22/21 02:45 Lymph # (Auto) 1.6 K/mm3 (1.2-5.4) 07/22/21 02:45 Oliver # (Auto) 0.6 K/mm3 (0.0-0.8) 07/22/21 02:45 Eos # (Auto) 0.1 K/mm3 (0.0-0.4) 07/22/21 02:45 Baso # (Auto) 0.0 K/mm3 (0.0-0.1) 07/22/21 02:45 Seg Neutrophils % 70.0 % (40.0-70.0) 07/22/21 02:45 Seg Neutrophils # 5.3 K/mm3 (1.8-7.7) 07/22/21 02:45 PT 13.0 Sec. (12.2-14.9) 07/22/21 02:45 INR 0.89 (0.87-1.13) 07/22/21 02:45 APTT 25.8 Sec. (24.2-36.6) 07/22/21 02:45 ABG pH 7.301 pH Units (7.350-7.450) L 07/22/21 03:09 ABG pCO2 40.9 mm Hg 07/22/21 03:09 ABG pO2 458.9 mm Hg (80.0-90.0) H 07/22/21 03:09 ABG HCO3 19.7 mmol/L (20.0-26.0) L 07/22/21 03:09 ABG O2 Saturation 99.6 % (95.0-99.0) H 07/22/21 03:09 ABG O2 Content 16.9 (0.0-44) 07/22/21 03:09 ABG Base Excess -6.3 mmol/L (-2.0-3.0) L 07/22/21 03:09 ABG Hemoglobin 11.4 gm/dl (14.0-18.0) L 07/22/21 03:09 ABG Carboxyhemoglobin 1.5 % (0.0-5.0) 07/22/21 03:09 ABG Methemoglobin 0.6 % (0.0-1.5) 07/22/21 03:09 Oxyhemoglobin 97.5 % (95.0-99.0) 07/22/21 03:09 FiO2 100 % 07/22/21 03:09 Sodium 141 mmol/L (137-145) 07/22/21 02:45 Potassium 4.0 mmol/L (3.6-5.0) 07/22/21 02:45 Chloride 99.9 mmol/L (98-107) 07/22/21 02:45 Carbon Dioxide 16 mmol/L (22-30) L 07/22/21 02:45 Anion Gap 29 mmol/L 07/22/21 02:45 BUN 12 mg/dL (9-20) 07/22/21 02:45 Creatinine 1.5 mg/dL (0.8-1.3) H 07/22/21 02:45 Estimated GFR > 60 ml/min 07/22/21 02:45 BUN/Creatinine Ratio 8 % 07/22/21 02:45 Glucose 89 mg/dL (75-100) 07/22/21 02:45 Lactic Acid 1.50 mmol/L (0.7-2.0) 07/22/21 09:00 Calcium 9.3 mg/dL (8.4-10.2) 07/22/21 02:45 Total Bilirubin 0.50 mg/dL (0.1-1.2) 07/22/21 02:45 AST 29 units/L (5-40) 07/22/21 02:45 ALT 19 units/L (7-56) 07/22/21 02:45 Alkaline Phosphatase 67 units/L (35-129) 07/22/21 02:45 Total Creatine Kinase 843 units/L (55-170) H 07/22/21 02:45 Total Protein 8.3 g/dL (6.3-8.2) H 07/22/21 02:45 Albumin 4.3 g/dL (3.9-5) 07/22/21 02:45 Albumin/Globulin Ratio 1.1 % 07/22/21 02:45 TSH 3.360 mlU/mL (0.270-4.200) 07/22/21 02:45 Urine Color Yellow (Yellow) 07/22/21 Unknown Urine Turbidity Clear (Clear) 07/22/21 Unknown Urine pH 5.0 (5.0-7.0) 07/22/21 Unknown Ur Specific [place] 1.024 (1.003-1.030) 07/22/21 Unknown Urine Protein 30 mg/dl mg/dL (Negative) 07/22/21 Unknown Urine Glucose (UA) Neg mg/dL (Negative) 07/22/21 Unknown Urine Ketones Tr mg/dL (Negative) 07/22/21 Unknown Urine Blood Neg (Negative) 07/22/21 Unknown Urine Nitrite Neg (Negative) 07/22/21 Unknown Urine Bilirubin Neg (Negative) 07/22/21 Unknown Urine Urobilinogen 4.0 mg/dL (<2.0) 07/22/21 Unknown Ur Leukocyte Esterase Neg (Negative) 07/22/21 Unknown Urine WBC (Auto) 6.0 /HPF (0.0-6.0) 07/22/21 Unknown Urine RBC (Auto) 2.0 /HPF (0.0-6.0) 07/22/21 Unknown U Epithel Cells (Auto) < 1.0 /HPF (0-13.0) 07/22/21 Unknown Urine Bacteria (Auto) 1+ /HPF (Negative) 07/22/21 Unknown Urine Mucus Few /HPF 07/22/21 Unknown Salicylates < 0.3 mg/dL (2.8-20.0) L 07/22/21 02:45 Urine Opiates Screen Presumptive negative 07/22/21 Unknown Urine Methadone Screen Presumptive negative 07/22/21 Unknown Acetaminophen 5.0 ug/mL (10.0-30.0) L 07/22/21 03:00 Ur Barbiturates Screen Presumptive negative 07/22/21 Unknown Ur Phencyclidine Scrn Presumptive negative 07/22/21 Unknown Ur Amphetamines Screen Presumptive positive 07/22/21 Unknown U Benzodiazepines Scrn Presumptive negative 07/22/21 Unknown Urine Cocaine Screen Presumptive negative 07/22/21 Unknown U Marijuana (THC) Screen Presumptive positive 07/22/21 Unknown Drugs of Abuse Note Disclamer 07/22/21 Unknown Plasma/Serum Alcohol < 0.01 % (0-0.07) 07/22/21 02:45 Syphilis IgG/IgM Ab Reactive (NonReactive) A 07/22/21 02:45 RPR Titer 1:32 (1:1-1:2) 07/22/21 02:45 Microbiology: Microbiology 07/22/21 02:37 Peripheral/Venous Blood Culture - Preliminary Culture in Progress 07/22/21 02:45 Peripheral/Venous Blood Culture - Preliminary Culture in Progress Conrad/IV: Voiding Method Indwelling Catheter Active Medications - Current Medications Current Medications: Generic Name Dose Route Start Last Admin Trade Name Freq PRN Reason Stop Dose Admin Acetaminophen 650 mg 07/22/21 04:03 Acetaminophen 650 Mg Rect Supp [place] Q6H PRN Pain MILD(1-3)/Fever >100.5/ALBERT Famotidine 20 mg 07/22/21 10:00 Famotidine 20 Mg/2 Ml Inj IV 07/22/21 18:00 BID AMOS Famotidine 10 mg 07/23/21 10:00 Famotidine 10 Mg Tab PO BID AMOS Fentanyl 50 mcg 07/22/21 02:26 Fentanyl 100 Mcg/2 Ml Inj IV Q10MIN PRN ANALGESIA Haloperidol Lactate 5 mg 07/22/21 02:01 07/22/21 02:10 Haloperidol Lactate 5 Mg/1 Ml Inj IM 5 mg Q6HR PRN Administration Agitation Heparin Sodium (Porcine) 5,000 unit 07/22/21 10:00 Heparin 5,000 Unit/1 Ml Vial SUB-Q Q12HR AMOS Hydrophilic Ointment 1 applic 07/22/21 02:26 Lip Therapy Vaseline TP Q2HR PRN Dry Lips Fentanyl Citrate 2,000 mcg in 100 mls @ 3.43 mls/hr 07/22/21 03:00 Fentanyl Drip Premix IV TITR AMOS Protocol 1 MCG/KG/HR Propofol 1,000 mg in 100 mls @ 12.348 mls/hr 07/22/21 03:00 07/22/21 06:05 Diprivan 10 Mg/Ml IV 40 mcg/kg/min TITR AMOS 16.464 mls/hr Administration Protocol 30 MCG/KG/MIN Sodium Chloride 1,000 mls @ 75 mls/hr 07/22/21 04:15 07/22/21 07:01 Nacl 0.9% 1000 Ml IV 75 mls/hr DIRECT AMOS Administration Ceftriaxone Sodium 2 gm in 100 mls @ 200 mls/hr 07/22/21 16:00 Rocephin/Ns 2 Gm/100 Ml IV Q12H AMOS Protocol Vancomycin HCl 1 gm in 250 mls @ 166.667 mls/hr 07/22/21 19:00 Vancomycin/Ns 1 Gm/250 Ml IV Q12H AMOS Multi-Ingred Cream/Lotion/Oil/Oint 1 applic 07/22/21 02:26 Mineral Oil/Petrolatum, White Ophth Oint 3.5 Gm OU Q4HR PRN Dry Eye(s) Ondansetron HCl 4 mg 07/22/21 04:03 Ondansetron 4 Mg/2 Ml Inj IV Q8H PRN Nausea And Vomiting Senna/Docusate Sodium 1 tab 07/22/21 10:00 Sennosides/Docusate Sodium 8.6/50 Mg Tab FEEDTUBE BID AMOS Sodium Chloride 10 ml 07/22/21 10:00 Sodium Chloride 0.9% 10 Ml Flush Syringe IV BID AMOS Sodium Chloride 10 ml 07/22/21 04:03 Sodium Chloride 0.9% 10 Ml Flush Syringe IV PRN PRN LINE FLUSH <MARSHALL VELAZQUEZ E - Last Filed: 07/23/21 07:22> Assessment and Plan Assessment and plan: I saw and evaluated the patient. I agree with the findings and the plan of care as documented in the Nurse Practitioner's~note, with the following corrections and additions. Hospitalist Physical - Constitutional Vitals: Temp Pulse Resp BP Pulse Ox 100.8 F H 83 19 144/80 100 07/23/21 04:00 07/23/21 07:15 07/23/21 04:11 07/23/21 07:15 07/23/21 07:15 Results - Labs CBC & Chem 7: 07/23/21 04:00 07/23/21 04:00 Labs: Laboratory Last Values WBC 5.8 K/mm3 (4.5-11.0) 07/23/21 04:00 RBC 4.97 M/mm3 (3.65-5.03) 07/23/21 04:00 Hgb 11.1 gm/dl (11.8-15.2) L 07/23/21 04:00 Hct 36.6 % (35.5-45.6) 07/23/21 04:00 MCV 74 fl (84-94) L 07/23/21 04:00 MCH 22 pg (28-32) L 07/23/21 04:00 MCHC 31 % (32-34) L 07/23/21 04:00 RDW 15.5 % (13.2-15.2) H 07/23/21 04:00 Plt Count 202 K/mm3 (140-440) 07/23/21 04:00 Lymph % (Auto) 21.1 % (13.4-35.0) 07/22/21 02:45 Oliver % (Auto) Display Screen [employer]ator 07/23/21 04:00 Eos % (Auto) 0.8 % (0.0-4.3) 07/22/21 02:45 Baso % (Auto) 0.2 % (0.0-1.8) 07/22/21 02:45 Lymph # (Auto) 1.6 K/mm3 (1.2-5.4) 07/22/21 02:45 [place] # (Auto) 0.6 K/mm3 (0.0-0.8) 07/22/21 02:45 Eos # (Auto) 0.1 K/mm3 (0.0-0.4) 07/22/21 02:45 Baso # (Auto) 0.0 K/mm3 (0.0-0.1) 07/22/21 02:45 Seg Neutrophils % 70.0 % (40.0-70.0) 07/22/21 02:45 Seg Neutrophils # 5.3 K/mm3 (1.8-7.7) 07/22/21 02:45 PT 13.0 Sec. (12.2-14.9) 07/22/21 02:45 INR 0.89 (0.87-1.13) 07/22/21 02:45 APTT 25.8 Sec. (24.2-36.6) 07/22/21 02:45 ABG pH 7.399 pH Units (7.350-7.450) 07/23/21 04:42 ABG pCO2 41.2 mm Hg 07/23/21 04:42 ABG pO2 181.4 mm Hg (80.0-90.0) H 07/23/21 04:42 ABG HCO3 24.9 mmol/L (20.0-26.0) 07/23/21 04:42 ABG O2 Saturation 99.1 % (95.0-99.0) H 07/23/21 04:42 ABG O2 Content 14.9 (0.0-44) 07/23/21 04:42 ABG Base Excess 0.1 mmol/L (-2.0-3.0) 07/23/21 04:42 ABG Hemoglobin 10.6 gm/dl (14.0-18.0) L 07/23/21 04:42 ABG Carboxyhemoglobin 1.0 % (0.0-5.0) 07/23/21 04:42 ABG Methemoglobin 0.4 % (0.0-1.5) 07/23/21 04:42 Oxyhemoglobin 97.7 % (95.0-99.0) 07/23/21 04:42 FiO2 40 % 07/23/21 04:42 Sodium 138 mmol/L (137-145) 07/23/21 04:00 Potassium 4.4 mmol/L (3.6-5.0) 07/23/21 04:00 Chloride 105.1 mmol/L (98-107) 07/23/21 04:00 Carbon Dioxide 24 mmol/L (22-30) D 07/23/21 04:00 Anion Gap 13 mmol/L 07/23/21 04:00 BUN 5 mg/dL (9-20) L 07/23/21 04:00 Creatinine 1.2 mg/dL (0.8-1.3) 07/23/21 04:00 Estimated GFR > 60 ml/min 07/23/21 04:00 BUN/Creatinine Ratio 4 % 07/23/21 04:00 Glucose 92 mg/dL (75-100) 07/23/21 04:00 Lactic Acid 1.50 mmol/L (0.7-2.0) 07/22/21 09:00 Calcium 8.3 mg/dL (8.4-10.2) L 07/23/21 04:00 Total Bilirubin 0.50 mg/dL (0.1-1.2) 07/22/21 02:45 AST 29 units/L (5-40) 07/22/21 02:45 ALT 19 units/L (7-56) 07/22/21 02:45 Alkaline Phosphatase 67 units/L (35-129) 07/22/21 02:45 Total Creatine Kinase 843 units/L (55-170) H 07/22/21 02:45 Total Protein 8.3 g/dL (6.3-8.2) H 07/22/21 02:45 Albumin 4.3 g/dL (3.9-5) 07/22/21 02:45 Albumin/Globulin Ratio 1.1 % 07/22/21 02:45 TSH 3.360 mlU/mL (0.270-4.200) 07/22/21 02:45 Urine Color Yellow (Yellow) 07/22/21 Unknown Urine Turbidity Clear (Clear) 07/22/21 Unknown Urine pH 5.0 (5.0-7.0) 07/22/21 Unknown Ur Specific [place] 1.024 (1.003-1.030) 07/22/21 Unknown Urine Protein 30 mg/dl mg/dL (Negative) 07/22/21 Unknown Urine Glucose (UA) Neg mg/dL (Negative) 07/22/21 Unknown Urine Ketones Tr mg/dL (Negative) 07/22/21 Unknown Urine Blood Neg (Negative) 07/22/21 Unknown Urine Nitrite Neg (Negative) 07/22/21 Unknown Urine Bilirubin Neg (Negative) 07/22/21 Unknown Urine Urobilinogen 4.0 mg/dL (<2.0) 07/22/21 Unknown Ur Leukocyte Esterase Neg (Negative) 07/22/21 Unknown Urine WBC (Auto) 6.0 /HPF (0.0-6.0) 07/22/21 Unknown Urine RBC (Auto) 2.0 /HPF (0.0-6.0) 07/22/21 Unknown U Epithel Cells (Auto) < 1.0 /HPF (0-13.0) 07/22/21 Unknown Urine Bacteria (Auto) 1+ /HPF (Negative) 07/22/21 Unknown Urine Mucus Few /HPF 07/22/21 Unknown Salicylates < 0.3 mg/dL (2.8-20.0) L 07/22/21 02:45 Urine Opiates Screen Presumptive negative 07/22/21 Unknown Urine Methadone Screen Presumptive negative 07/22/21 Unknown Acetaminophen 5.0 ug/mL (10.0-30.0) L 07/22/21 03:00 Ur Barbiturates Screen Presumptive negative 07/22/21 Unknown Ur Phencyclidine Scrn Presumptive negative 07/22/21 Unknown Ur Amphetamines Screen Presumptive positive 07/22/21 Unknown U Benzodiazepines Scrn Presumptive negative 07/22/21 Unknown Urine Cocaine Screen Presumptive negative 07/22/21 Unknown U Marijuana (THC) Screen Presumptive positive 07/22/21 Unknown Drugs of Abuse Note Disclamer 07/22/21 Unknown Plasma/Serum Alcohol < 0.01 % (0-0.07) 07/22/21 02:45 Syphilis IgG/IgM Ab Reactive (NonReactive) A 07/22/21 02:45 RPR Titer 1:32 (1:1-1:2) 07/22/21 02:45 Coronavirus (PCR) Negative (Negative) 07/22/21 09:45 Microbiology: Microbiology 07/22/21 02:37 Peripheral/Venous Blood Culture - Preliminary NO GROWTH AFTER 24 HOURS 07/22/21 02:45 Peripheral/Venous Blood Culture - Preliminary NO GROWTH AFTER 24 HOURS 07/22/21 03:33 Tracheal Aspirate Sputum Culture - Preliminary Conrad/IV: Voiding Method Indwelling Catheter Active Medications - Current Medications Current Medications: Generic Name Dose Route Start Last Admin Trade Name Freq PRN Reason Stop Dose Admin Acetaminophen 650 mg 07/22/21 04:03 Acetaminophen 650 Mg Rect Supp IL Q6H PRN Pain MILD(1-3)/Fever >100.5/ALBERT Acetaminophen 650 mg 07/22/21 13:40 Acetaminophen 325 Mg/10.15 Ml Oral Liqd Unit Dose FEEDTUBE Q6H PRN Pain, Mild (1-3) Famotidine 10 mg 07/23/21 10:00 Famotidine 10 Mg Tab PO BID AMOS Fentanyl 50 mcg 07/22/21 02:26 Fentanyl 100 Mcg/2 Ml Inj IV Q10MIN PRN ANALGESIA Haloperidol Lactate 5 mg 07/22/21 02:01 07/22/21 02:10 Haloperidol Lactate 5 Mg/1 Ml Inj IM 5 mg Q6HR PRN Administration Agitation Heparin Sodium (Porcine) 5,000 unit 07/22/21 10:00 07/22/21 22:15 Heparin 5,000 Unit/1 Ml Vial SUB-Q 5,000 unit Q12HR AMOS Administration Hydrophilic Ointment 1 applic 07/22/21 02:26 Lip Therapy Vaseline TP Q2HR PRN Dry Lips Fentanyl Citrate 2,000 mcg in 100 mls @ 3.43 mls/hr 07/22/21 03:00 Fentanyl Drip Premix IV TITR AMOS Protocol 1 MCG/KG/HR Propofol 1,000 mg in 100 mls @ 12.348 mls/hr 07/22/21 03:00 07/23/21 02:02 Diprivan 10 Mg/Ml IV 40 mcg/kg/min TITR AMOS 16.464 mls/hr Administration Protocol 30 MCG/KG/MIN Sodium Chloride 1,000 mls @ 75 mls/hr 07/22/21 04:15 07/23/21 00:43 Nacl 0.9% 1000 Ml IV 75 mls/hr DIRECT AMOS Administration Ceftriaxone Sodium 2 gm in 100 mls @ 200 mls/hr 07/22/21 16:00 07/23/21 05:29 Rocephin/Ns 2 Gm/100 Ml IV 200 mls/hr Q12H AMOS Administration Protocol Vancomycin HCl 1 gm in 250 mls @ 166.667 mls/hr 07/22/21 19:00 07/23/21 06:31 Vancomycin/Ns 1 Gm/250 Ml IV 166.667 mls/hr Q12H AMOS Administration Acyclovir 690 mg/ Sodium 113.8 mls @ 100 mls/hr 07/22/21 14:00 07/23/21 05:31 Chloride IV 100 mls/hr Q8HR AMOS Administration Protocol Multi-Ingred Cream/Lotion/Oil/Oint 1 applic 07/22/21 02:26 Mineral Oil/Petrolatum, White Ophth Oint 3.5 Gm OU Q4HR PRN Dry Eye(s) Ondansetron HCl 4 mg 07/22/21 04:03 Ondansetron 4 Mg/2 Ml Inj IV Q8H PRN Nausea And Vomiting Senna/Docusate Sodium 1 tab 07/22/21 10:00 07/22/21 22:15 Sennosides/Docusate Sodium 8.6/50 Mg Tab FEEDTUBE 1 tab BID AMOS Administration Sodium Chloride 10 ml 07/22/21 10:00 07/22/21 22:16 Sodium Chloride 0.9% 10 Ml Flush Syringe IV 10 ml BID AMOS Administration Sodium Chloride 10 ml 07/22/21 04:03 Sodium Chloride 0.9% 10 Ml Flush Syringe IV PRN PRN LINE FLUSH Nutrition/Malnutrition Assess - Dietary Evaluation Nutrition/Malnutrition Findings: Nutrition Notes Start: 07/22/21 11:24 Freq: Status: Active Protocol: Document 07/22/21 11:24 AMA (Rec: 07/22/21 11:31 AMA [id number]) Nutrition Notes Need for Assessment generated from: MD Order,Education Initial or Follow up Assessment Other Pertinent Diagnosis AMS, Fever Current Diet NPO Labs/Tests Cr 1.5 Pertinent Medications Propofol at 16.464ml/hr ( provides 435 kcal), NS at 75ml /hr Height 5 ft 10 in Weight 68.6 kg [place] Body Weight (kg) 75.45 BMI 21.7 Weight Status Appropriate Subjective/Other Information RD consulted for diet education and TF. Pt not appropriate for diet education at this time as he is intubated and mechanically ventilated. PMHx includes HIV /AIDS and seizures. Burn Absent Trauma Absent Minimum of two criteria No #1 Nutrition Diagnosis Inadequate oral intake Etiology mech ventilation As Evidenced by Signs and Symptoms pt NPO Is patient on ventilator? Yes Is Patient Ambulatory and/or Out of Bed No REE-([facility]-confined to bed) 9252.051 Calculation Used for Recommendations [facility] Additional Notes Pro needs 1.2-2g/k-137g/ day Fluid needs 1ml/kcal Nutrition Intervention Nutrition Support: Osmolite 1.5 at 55ml/hr with 150ml water flush q4h. Kcal 1,980 Protein (gm) 83 Carbohydrates (gm) 269 Fat (gm) 65 Fluid (mL) 1,006 Fiber (gm) 0 Goal #1 TF tolerance Goal #2 TF to meet at least 75% energy and pro needs Anticipated Discharge Needs: Unable to identify at this time Follow-Up By: 06/13/22 Additional Comments F/U: new TF, vent status, propofol
[2021-07-22] MEDS: HEPARIN 5,000 UNIT/1 ML VIAL SUB-Q SCH ×2 (10:30→22:15)
[2021-07-22] MEDS: SENNOSIDES/DOCUSATE SODIUM 8.6/50 MG TAB FEEDTUBE SCH ×2 (10:30→22:15)
--- NOTE | 2021-07-22 10:54 | Consultation ---
History of Present Illness Consult date: 07/22/21 Requesting physician: TEREZA WOOTEN History of present illness: History per review of medical records and per ED 31-year-old -[place] male brought into the emergency room today with altered mental status. He was acutely delirious upon arrival in the emergency room. Most of the history was gotten from the ER staff as there was no family member patient currently intubated. He was said to be febrile to 101.4 F upon arrival, tachycardic and diaphoretic. Was also said to be acutely psychotic and subsequently intubated to protect his airway. Work-up in the emergency room today, CT scan of the head shows no acute abnormality. Chest x-ray shows no acute cardiopulmonary abnormality. Labs however shows lactic acid of 11.2, creatinine of 1.5, creatinine kinase of 843. Toxicology screen was positive for amphetamine, marijuana. An attempt was made to do a spinal tap by the ER physician over so successful. However, patient was commenced on empiric IV antibiotics for possible underlying meningitis. He has been admitted to the ICU. Patient seen and examined. Discussed with ED physician earlier on, discussed with admitting physician He is orally intubated and sedated on Propofol. Past History Past Medical History: HIV/AIDS, seizures Past Surgical History: No surgical history Social history: smoking (Current daily smoker), other (Uses Marijuana) Family history: no significant family history Medications and Allergies Allergies Allergy/AdvReac Type Severity Reaction Status Date / Time No Known Allergies Allergy Verified 08/08/13 03:03 Home Medications Medication Instructions Recorded Confirmed Last Taken Type Emtricita/Rilpivirine/Tenof Df 1 tab PO DAILY 08/28/15 08/28/15 Unknown History [Complera Tablet] Sulfamethoxazole/Trimethoprim 1 each PO BID #14 tablet 08/28/15 Unknown Rx [Bactrim DS TAB] Azithromycin [Zithromax Z-LUKE] 250 mg PO DAILY #6 tab 03/06/16 Unknown Rx guaiFENesin/CODEINE [Robitussin AC] 10 ml PO QHS #70 oral.liqd 03/06/16 Unknown Rx Ibuprofen [Motrin] 600 mg PO Q8H PRN #30 tablet 07/08/16 Unknown Rx Neomycn/Bacitrc/Polymyx/Pramox 28 gm TP BID #1 oint...g. 07/08/16 Unknown Rx [Triple Antibioti-Pain Rlf Oint] cephALEXin [Keflex] 500 mg PO Q12HR #10 cap 07/08/16 Unknown Rx Active Meds: Active Medications Acetaminophen (Acetaminophen 650 Mg Rect Supp) 650 mg NE Q6H PRN PRN Reason: Pain MILD(1-3)/Fever >100.5/ALBERT Famotidine (Famotidine 20 Mg/2 Ml Inj) 20 mg IV BID AMOS Stop: 07/22/21 18:00 Famotidine (Famotidine 10 Mg Tab) 10 mg PO BID AMOS Fentanyl (Fentanyl 100 Mcg/2 Ml Inj) 50 mcg IV Q10MIN PRN PRN Reason: ANALGESIA Haloperidol Lactate (Haloperidol Lactate 5 Mg/1 Ml Inj) 5 mg IM Q6HR PRN PRN Reason: Agitation Last Admin: 07/22/21 02:10 Dose: 5 mg Heparin Sodium (Porcine) (Heparin 5,000 Unit/1 Ml Vial) 5,000 unit SUB-Q Q12HR AMOS Last Admin: 07/22/21 10:30 Dose: 5,000 unit Hydrophilic Ointment (Lip Therapy Vaseline) 1 applic TP Q2HR PRN PRN Reason: Dry Lips Fentanyl Citrate (Fentanyl Drip Premix) 2,000 mcg in 100 mls @ 3.43 mls/hr IV TITR AMOS; Protocol Propofol (Diprivan 10 Mg/Ml) 1,000 mg in 100 mls @ 12.348 mls/hr IV TITR AMOS; Protocol Last Admin: 07/22/21 06:05 Dose: 40 mcg/kg/min, 16.464 mls/hr Sodium Chloride (Nacl 0.9% 1000 Ml) 1,000 mls @ 75 mls/hr IV DIRECT AMOS Last Admin: 07/22/21 07:01 Dose: 75 mls/hr Ceftriaxone Sodium (Rocephin/Ns 2 Gm/100 Ml) 2 gm in 100 mls @ 200 mls/hr IV Q12H AMOS; Protocol Vancomycin HCl (Vancomycin/Ns 1 Gm/250 Ml) 1 gm in 250 mls @ 166.667 mls/hr IV Q12H AMOS Acyclovir 690 mg/ Sodium (Chloride) 113.8 mls @ 100 mls/hr IV Q8HR AMOS; Protocol Multi-Ingred Cream/Lotion/Oil/Oint (Mineral Oil/Petrolatum, White Ophth Oint 3.5 Gm) 1 applic OU Q4HR PRN PRN Reason: Dry Eye(s) Ondansetron HCl (Ondansetron 4 Mg/2 Ml Inj) 4 mg IV Q8H PRN PRN Reason: Nausea And Vomiting Senna/Docusate Sodium (Sennosides/Docusate Sodium 8.6/50 Mg Tab) 1 tab FEEDTUBE BID [facility] Last Admin: 07/22/21 10:30 Dose: 1 tab Sodium Chloride (Sodium Chloride 0.9% 10 Ml Flush Syringe) 10 ml IV BID [facility] Last Admin: 07/22/21 10:31 Dose: 10 ml Sodium Chloride (Sodium Chloride 0.9% 10 Ml Flush Syringe) 10 ml IV PRN PRN PRN Reason: LINE FLUSH Review of Systems ROS unobtainable: due to endotracheal tube, due to mental status Physical Examination Vital signs: Vital Signs Pulse Resp 156 H 50 H 07/22/21 02:04 07/22/21 02:04 General appearance: no acute distress, other (sedated) Eyes: non-icteric ENT: oropharynx moist Neck: supple, no lymphadenopathy, no JVD Effort: normal Ascultation: Bilateral: clear, diminished breath sounds Cardiovascular: regular rate and rhythm, other (S1,S2) Gastrointestinal: normoactive bowel sounds, soft, non-tender Integumentary: normal Extremities: no cyanosis, no edema, pink and warm other (sedated) Results - Laboratory Findings CBC and BMP: 07/24/21 03:40 07/24/21 03:40 ABG ABG pH 7.301 pH Units (7.350-7.450) L 07/22/21 03:09 ABG pCO2 40.9 mm Hg 07/22/21 03:09 ABG pO2 458.9 mm Hg (80.0-90.0) H 07/22/21 03:09 ABG O2 Saturation 99.6 % (95.0-99.0) H 07/22/21 03:09 PT/INR, D-dimer PT 13.0 Sec. (12.2-14.9) 07/22/21 02:45 INR 0.89 (0.87-1.13) 07/22/21 02:45 Abnormal lab findings: Abnormal Labs 07/22/21 07/22/21 07/22/21 02:45 02:45 02:45 RBC 5.43 H MCV 73 L MCH 23 L MCHC 31 L RDW 15.5 H [place] % (Auto) 7.9 H ABG pH ABG pO2 ABG HCO3 ABG O2 Saturation ABG Base Excess ABG Hemoglobin Carbon Dioxide 16 L Creatinine 1.5 H Lactic Acid Total Creatine Kinase Total Protein 8.3 H Salicylates < 0.3 L Acetaminophen Syphilis IgG/IgM Ab 07/22/21 07/22/21 07/22/21 02:45 02:45 02:45 RBC MCV MCH MCHC RDW [place] % (Auto) ABG pH ABG pO2 ABG HCO3 ABG O2 Saturation ABG Base Excess ABG Hemoglobin Carbon Dioxide Creatinine Lactic Acid 11.70 H* Total Creatine Kinase 843 H Total Protein Salicylates Acetaminophen 5.0 L Syphilis IgG/IgM Ab 07/22/21 07/22/21 07/22/21 02:45 03:00 03:09 RBC MCV MCH MCHC RDW [place] % (Auto) ABG pH 7.301 L ABG pO2 458.9 H ABG HCO3 19.7 L ABG O2 Saturation 99.6 H ABG Base Excess -6.3 L ABG Hemoglobin 11.4 L Carbon Dioxide Creatinine Lactic Acid Total Creatine Kinase Total Protein Salicylates Acetaminophen 5.0 L Syphilis IgG/IgM Ab Reactive A - Diagnostic Findings Chest x-ray: image reviewed (No acute infiltrates, ETT in position) Assessment and Plan Acute hypoxic Respiratory Failure on MVS Polysubstance abuse disorder Fever with AMS h/o HIV -Titrate supplemental oxygen to keep SpO2 89-92% -VAP bundle addressed, aspiration precautions HOB >40 -Lung protective strategies, -CXR, ABG as clinically indicated -Daily assessment for readiness to wean. Daily SBT -Monitoring renal function, hemodynamics and electrolyte profile -Replete electrolytes as clinically indicated -Accuchecks with glycemic control. target blood glucose 140-180 mg/dL. Avoid hypoglycemia -VTE prophylaxis- -Avoid nephrotoxins -Stress ulcer prophylaxis- -Mobility, frequent turning, off loading per facility protocol to prevent pressure ulcers -Maintain sleep wake cycle, avoid benzodiazepines. -Limit delirium Antibiotics- empiric for meningitis, ID has been consulted by primary service De-escalate per clinical response and culture data Discontinue Conrad catheter, not clinically indicated. Updated his mother and answered her questions -HIV status and UDS results not discussed CONDITION:CRITICAL PROGNOSIS: GUARDED CODE STATUS; FULL CODE The high probability of a clinically significant, sudden or life threatening deterioration of the respiratory, cardiovascular, neurology system required my full and direct attention, intervention and personal management. The aggregate critical care time was [35] minutes. This time is in addition to time spent performing reported procedures but includes the following: [x] Data Review and interpretation [x] Patient assessment and monitoring of vital signs [x] Documentation [x] Medication orders and management
--- NOTE | 2021-07-22 14:58 | Consultation ---
History of Present Illness - Reason for Consult Consult date: 07/22/21 Reason for consult: Psychosis - Chief Complaint Chief complaint: Altered Mental Status - History of Present Psychiatric Illness H&P:31-year-old -[place] male brought into the emergency room today with altered mental status. He was acutely delirious upon arrival in the emergency room. Most of the history was gotten from the ER staff as there was no family member patient currently intubated. He was said to be febrile to 101.4 F upon arrival, tachycardic and diaphoretic. Was also said to be acutely psychotic and subsequently intubated to protect his airway. Work-up in the emergency room today, CT scan of the head shows no acute abnormality. Chest x-ray shows no acute cardiopulmonary abnormality. Labs however shows lactic acid of 11.2, creatinine of 1.5, creatinine kinase of 843. Toxicology screen was positive for amphetamine, marijuana. An attempt was made to do a spinal tap by the ER physician over so successful. However, patient was commenced on empiric IV antibiotics for possible underlying meningitis. The patient is a 31 year old male with unknown psychiatric history. The patient is currently intubated, will follow. PAST PSYCHIATRIC HISTORY: PAST MEDICAL HISTORY: None reported or document Family Psychiatric History: None reported or documented SOCIAL HISTORY REVIEW OF SYSTEMS MENTAL STATUS EXAMINATION Diagnoses: Mental health evaluation Treatment Plan Continue current treatment plan. Medical: per primary Sitter: defer to primary Disposition: Do not recommend acute psychiatric inpatient treatment. Will follow. Thanks Case staffed with Dr. Galarza Medications and Allergies Medications and Allergies Allergies Allergy/AdvReac Type Severity Reaction Status Date / Time No Known Allergies Allergy Verified 08/08/13 03:03 Home Medications Medication Instructions Recorded Confirmed Last Taken Type Emtricita/Rilpivirine/Tenof Df 1 tab PO DAILY 08/28/15 08/28/15 Unknown History [Complera Tablet] Sulfamethoxazole/Trimethoprim 1 each PO BID #14 tablet 08/28/15 Unknown Rx [Bactrim DS TAB] Azithromycin [Zithromax Z-LUKE] 250 mg PO DAILY #6 tab 03/06/16 Unknown Rx guaiFENesin/CODEINE [Robitussin AC] 10 ml PO QHS #70 oral.liqd 03/06/16 Unknown Rx Ibuprofen [Motrin] 600 mg PO Q8H PRN #30 tablet 07/08/16 Unknown Rx Neomycn/Bacitrc/Polymyx/Pramox 28 gm TP BID #1 oint...g. 07/08/16 Unknown Rx [Triple Antibioti-Pain Rlf Oint] cephALEXin [Keflex] 500 mg PO Q12HR #10 cap 07/08/16 Unknown Rx Active Meds: Active Medications Acetaminophen (Acetaminophen 650 Mg Rect Supp) 650 mg DC Q6H PRN PRN Reason: Pain MILD(1-3)/Fever >100.5/ALBERT Acetaminophen (Acetaminophen 325 Mg/10.15 Ml Oral Liqd Unit Dose) 650 mg FEEDTUBE Q6H PRN PRN Reason: Pain, Mild (1-3) Famotidine (Famotidine 20 Mg/2 Ml Inj) 20 mg IV BID AMOS Stop: 07/22/21 18:00 Famotidine (Famotidine 10 Mg Tab) 10 mg PO BID AMOS Fentanyl (Fentanyl 100 Mcg/2 Ml Inj) 50 mcg IV Q10MIN PRN PRN Reason: ANALGESIA Haloperidol Lactate (Haloperidol Lactate 5 Mg/1 Ml Inj) 5 mg IM Q6HR PRN PRN Reason: Agitation Last Admin: 07/22/21 02:10 Dose: 5 mg Heparin Sodium (Porcine) (Heparin 5,000 Unit/1 Ml Vial) 5,000 unit SUB-Q Q12HR AMOS Last Admin: 07/22/21 10:30 Dose: 5,000 unit Hydrophilic Ointment (Lip Therapy Vaseline) 1 applic TP Q2HR PRN PRN Reason: Dry Lips Fentanyl Citrate (Fentanyl Drip Premix) 2,000 mcg in 100 mls @ 3.43 mls/hr IV TITR AMOS; Protocol Propofol (Diprivan 10 Mg/Ml) 1,000 mg in 100 mls @ 12.348 mls/hr IV TITR AMOS; Protocol Last Admin: 07/22/21 13:19 Dose: 40 mcg/kg/min, 16.464 mls/hr Sodium Chloride (Nacl 0.9% 1000 Ml) 1,000 mls @ 75 mls/hr IV DIRECT AMOS Last Admin: 07/22/21 07:01 Dose: 75 mls/hr Ceftriaxone Sodium (Rocephin/Ns 2 Gm/100 Ml) 2 gm in 100 mls @ 200 mls/hr IV Q12H AMOS; Protocol Vancomycin HCl (Vancomycin/Ns 1 Gm/250 Ml) 1 gm in 250 mls @ 166.667 mls/hr IV Q12H AMOS Acyclovir 690 mg/ Sodium (Chloride) 113.8 mls @ 100 mls/hr IV Q8HR AMOS; Protocol Multi-Ingred Cream/Lotion/Oil/Oint (Mineral Oil/Petrolatum, White Ophth Oint 3.5 Gm) 1 applic OU Q4HR PRN PRN Reason: Dry Eye(s) Ondansetron HCl (Ondansetron 4 Mg/2 Ml Inj) 4 mg IV Q8H PRN PRN Reason: Nausea And Vomiting Senna/Docusate Sodium (Sennosides/Docusate Sodium 8.6/50 Mg Tab) 1 tab FEEDTUBE BID AMOS Last Admin: 07/22/21 10:30 Dose: 1 tab Sodium Chloride (Sodium Chloride 0.9% 10 Ml Flush Syringe) 10 ml IV BID AMOS Last Admin: 07/22/21 10:31 Dose: 10 ml Sodium Chloride (Sodium Chloride 0.9% 10 Ml Flush Syringe) 10 ml IV PRN PRN PRN Reason: LINE FLUSH Mental Status Exam - Vital signs Last Vital Signs Temp 97.7 F 07/22/21 06:00 Pulse 108 H 07/22/21 12:50 Resp 18 07/22/21 12:50 BP 147/73 07/22/21 12:50 Pulse Ox 99 07/22/21 12:50 Results Result Diagrams: 07/22/21 02:45 07/22/21 02:45 Abnormal lab results 07/22/21 07/22/21 07/22/21 Range/Units 02:45 02:45 02:45 RBC 5.43 H (3.65-5.03) M/mm3 MCV 73 L (84-94) fl MCH 23 L (28-32) pg MCHC 31 L (32-34) % RDW 15.5 H (13.2-15.2) % Green % (Auto) 7.9 H (0.0-7.3) % ABG pH (7.350-7.450) pH Units ABG pO2 (80.0-90.0) mm Hg ABG HCO3 (20.0-26.0) mmol/L ABG O2 Saturation (95.0-99.0) % ABG Base Excess (-2.0-3.0) mmol/L ABG Hemoglobin (14.0-18.0) gm/dl Carbon Dioxide 16 L (22-30) mmol/L Creatinine 1.5 H (0.8-1.3) mg/dL Lactic Acid (0.7-2.0) mmol/L Total Creatine Kinase (55-170) units/L Total Protein 8.3 H (6.3-8.2) g/dL Salicylates < 0.3 L (2.8-20.0) mg/dL Acetaminophen (10.0-30.0) ug/mL Syphilis IgG/IgM Ab (NonReactive) 07/22/21 07/22/21 07/22/21 Range/Units 02:45 02:45 02:45 RBC (3.65-5.03) M/mm3 MCV (84-94) fl MCH (28-32) pg MCHC (32-34) % RDW (13.2-15.2) % Green % (Auto) (0.0-7.3) % ABG pH (7.350-7.450) pH Units ABG pO2 (80.0-90.0) mm Hg ABG HCO3 (20.0-26.0) mmol/L ABG O2 Saturation (95.0-99.0) % ABG Base Excess (-2.0-3.0) mmol/L ABG Hemoglobin (14.0-18.0) gm/dl Carbon Dioxide (22-30) mmol/L Creatinine (0.8-1.3) mg/dL Lactic Acid 11.70 H* (0.7-2.0) mmol/L Total Creatine Kinase 843 H (55-170) units/L Total Protein (6.3-8.2) g/dL Salicylates (2.8-20.0) mg/dL Acetaminophen 5.0 L (10.0-30.0) ug/mL Syphilis IgG/IgM Ab (NonReactive) 07/22/21 07/22/21 07/22/21 Range/Units 02:45 03:00 03:09 RBC (3.65-5.03) M/mm3 MCV (84-94) fl MCH (28-32) pg MCHC (32-34) % RDW (13.2-15.2) % Green % (Auto) (0.0-7.3) % ABG pH 7.301 L (7.350-7.450) pH Units ABG pO2 458.9 H (80.0-90.0) mm Hg ABG HCO3 19.7 L (20.0-26.0) mmol/L ABG O2 Saturation 99.6 H (95.0-99.0) % ABG Base Excess -6.3 L (-2.0-3.0) mmol/L ABG Hemoglobin 11.4 L (14.0-18.0) gm/dl Carbon Dioxide (22-30) mmol/L Creatinine (0.8-1.3) mg/dL Lactic Acid (0.7-2.0) mmol/L Total Creatine Kinase (55-170) units/L Total Protein (6.3-8.2) g/dL Salicylates (2.8-20.0) mg/dL Acetaminophen 5.0 L (10.0-30.0) ug/mL Syphilis IgG/IgM Ab Reactive A (NonReactive) All other labs normal.
[2021-07-22] MEDS: SODIUM CHLORIDE 0.9% IV SCH ×2 (15:36→22:16)
[2021-07-22] MEDS: cefTRIAXone/NS 2 GM/100 ML 2 GM/100 ML BAG IV SCH (15:36)
[2021-07-22] MEDS: ACYCLOVIR IV SCH ×2 (15:36→22:16)
[2021-07-22] MEDS: VANCOMYCIN/NS 1 GM/250 ML 1 GM/250 ML BAG IV SCH (18:29)
[2021-07-23] MEDS: SODIUM CHLORIDE 0.9% 1000 ML 1,000 ML IV SCH ×2 (00:43→20:17)
--- NOTE | 2021-07-23 04:31 | XRay Report ---
CHEST 1 VIEW INDICATION / CLINICAL INFORMATION: follow up respiratory failure. COMPARISON: None available. FINDINGS: SUPPORT DEVICES: Endotracheal tube not well visualized. Esophagogastric tube stable. Additional probe at the level of the GE junction. HEART / MEDIASTINUM: Heart size normal. LUNGS / PLEURA: Lungs are clear for degree of inspiration and technique utilized. BONES: No significant osseous abnormality. ADDITIONAL FINDINGS: No significant additional findings. IMPRESSION: 1. No active cardiopulmonary disease. 2. Endotracheal tube not well visualized. Esophagogastric tube is stable. Additional probe at the lev el of the GE junction thought to reflect temperature probe. Signer Name: Kyle Avila II, MD Signed: 07/23/2021 4:27 AM Workstation Name: [id number]
[2021-07-23 05:00] LABS: ABG Base Excess 0.1 mmol/L (-2.0-3.0); ABG HCO3 24.9 mmol/L (20.0-26.0); ABG Methemoglobin 0.4 % (0.0-1.5); ABG Oxygen Saturation 99.1 % (95.0-99.0); ABG PCO2 41.2 mm Hg; ABG PH 7.399 pH Units (7.350-7.450); ABG PO2 181.4 mm Hg (80.0-90.0)
[2021-07-23] MEDS: cefTRIAXone/NS 2 GM/100 ML 2 GM/100 ML BAG IV SCH ×2 (05:29→16:10)
[2021-07-23] MEDS: SODIUM CHLORIDE 0.9% IV SCH ×3 (05:31→23:25)
[2021-07-23] MEDS: ACYCLOVIR IV SCH ×3 (05:31→23:25)
[2021-07-23 05:54] LABS: BUN/Creatinine Ratio 4; Blood Urea Nitrogen 5 mg/dL (9-20); Calcium 8.3 mg/dL (8.4-10.2); Hemolysis Index 13
[2021-07-23 06:01] LABS: Mean Corpuscular HGB Conc 31 % (32-34); Mean Corpuscular Volume 74 fl (84-94); Platelet Count 202 K/mm3 (140-440); Red Blood Count 4.97 M/mm3 (3.65-5.03); Red Cell Distribution Width 15.5 % (13.2-15.2)
[2021-07-23 06:02] LABS: Hematocrit 36.6 % (35.5-45.6); Hemoglobin 11.1 gm/dl (11.8-15.2)
[2021-07-23] MEDS: VANCOMYCIN/NS 1 GM/250 ML 1 GM/250 ML BAG IV SCH ×2 (06:31→20:16)
[2021-07-23 07:29] LABS: Basophils % (Manual) 0 % (0.0-1.8); Eosinophils % (Manual) 0 % (0.0-4.3); Total Cells Counted 100
[2021-07-23 07:31] LABS: Anisocytosis 1+; Platelet Estimate Consistent w Auto
[2021-07-23] MEDS: FAMOTIDINE 10 MG TAB PO SCH ×2 (10:11→21:14)
[2021-07-23] MEDS: HEPARIN 5,000 UNIT/1 ML VIAL SUB-Q SCH ×2 (10:11→21:14)
[2021-07-23] MEDS: SENNOSIDES/DOCUSATE SODIUM 8.6/50 MG TAB FEEDTUBE SCH ×2 (10:11→22:00)
--- NOTE | 2021-07-23 10:28 | Progress Note ---
<FREDDIE MOTTA - Last Filed: 07/23/21 17:27> Assessment and Plan Assessment and plan: This is a 31-year-old male with known past medical history of HIV/AIDS and seizures admitted fevers and AMS now on ventilatory support for airway protection Hospital Course to Date: 07/22: Intubated and sedated. Fevers improved, VSS. FL lumbar puncture pending. D/w ID continue current empiric IV abx and antiviral for now. Trend lactic acid. Per CCM post SAT and SBT tomorrow if patient remains stable. 07/23: Failed SAT this am due to increase agitation. Remains stable on low vent setting, VSS. Will add precedex gtt in an attempt to wean off propofol gtt. Will attempt SAT /SBT again later on today if patient is appropriate, possible extubation today. Low grade fevers this am, WBCs wnr, continue current empiric IV Abx and antiviral. Possible FL lumbar puncture tomorrow. ID also on consult. Assessment and Plan #Fevers-unclear etiology #Syphilis- Unclear if active vs Latent #Lactic Acidosis/Metabolic Acidosis-resolved #R/O Meningitis - Presented with tachycardia, high fevers, and elevated lactic acid - fevers improved, WBCs wnr, lactic less than 2 - Cultures pending - Syphilis reactive, H/o HIV/AIDS - CXR shows no active cardiopulmonary disease - LP attempted in the ED but unsuccessful - FL lumbar puncture pending - ID consulted, appreciated recommendations - D/w ID continue current empiric IV abx and antiviral for now- Acyclovir, Rocephin, and Vanco - Continue IVF hydration - Continue to F/U on cultures #Acute Hypoxic Respiratory Failure - Intubated in the ED on 07/22 for airway protection - CXR shows no active cardiopulmonary disease - Vent setting: PRVC-40%,6,18,450 - AM ABG noted - CCM consulted, appreciate recommendations - VAP bundle addressed - Aspiration precaution HOB above 30 - Failed SAT this am due to increase agitation - Will attempt SAT /SBT again later on today if patient is appropriate, possible extubation today - Daily ABG and CXR - Continue SPO2 monitoring for SPO2 goal above 95% #Acute Encephalopathy- Toxic vs Metabolic #Substances abuse #R/O Meningitis - probably due to substances abuse vs infectious process-R/o meningitis - presented with AMS, psychosis delirium - UDS + amphetamine, marijuana - CT scan of the head shows no acute abnormality - LP unsuccessful in the ED - Continue Empiric IV Abx and antiviral - Failed SAT this am due to increase agitation - Precedex gtt added - Plan to wean off propofol gtt - titrate sedation for RASS goal 0 to -1 - Seizures precautions - Daily SAT and SBT - PRN Analgesia for CPOT greater than 3 - Maintenance of sleep-wake cycle - Mental health/Psych also consulted #Acute Kidney Injury(NOAH) most likely vasomotor Nephropathy - Baseline unknown, presented with Scr. 1.5 - Scr imprpoved post IV hydration - Continue IVF hydration - Strict intake and output - Avoid nephrotoxic medications; Renally dose medications - Monitor and replace electrolytes as needed #GI/DVT Prophylaxis - PPI- Pepcid - Heparin SubQ - SCDs to bilateral lower extremities while in bed #Advance Care Planning - Disease education data, care plan, diagnoses, and prognosis were discussed with patient's mother, Elayne Castellano. All questions and concerns were address at this time. Patient's mother acknowledged understanding and agreement with care plan. Patient is a FULL code. The high probability of a clinically significant, sudden or life threatening deterioration of the [multiple] system(s) required my full and direct attention, intervention and personal management. The aggregate critical care time was [60] minutes. This time is in addition to time spent performing reported procedures but includes the following: [x] Data Review and interpretation [x] Patient assessment and monitoring of vital signs [x] Documentation [x] Medication orders and management Disposition Plan: ICU Total Time Spent with Patient (Minutes): 60 History Interval history: Patient seen and examined at the bedside. Remains intubated and Sedated on propofol gtt, RASS-4. VSS. Patient did not tolerate SAT trial this am, due to increase agitation, with nonpurposeful movements, not following commands. Hospitalist Physical - Constitutional Vitals: Temp Pulse Resp BP Pulse Ox 100.8 F H 77 19 129/78 100 07/23/21 04:00 07/23/21 10:11 07/23/21 10:11 07/23/21 10:11 07/23/21 10:11 General appearance: Present: no acute distress, well-nourished, other (Intubated and sedated) - EENT Eyes: Present: PERRL - Neck Neck: Present: normal ROM - Respiratory Respiratory effort: normal Respiratory: bilateral: diminished - Cardiovascular Rhythm: regular Heart Sounds: Present: S1 & S2 - Extremities Extremities: no ischemia, pulses intact, pulses symmetrical Peripheral Pulses: within normal limits - Abdominal General gastrointestinal: soft, non-distended, normal bowel sounds - Integumentary Integumentary: Present: clear, warm, dry - Psychiatric Psychiatric: other (Intubated and sedated) - Neurologic Neurologic: moves all extremities (nonpurposeful movements), other (Intubated and sedated) - Allied Health Allied health notes reviewed: nursing, case management Results - Labs CBC & Chem 7: 07/23/21 04:00 07/23/21 04:00 Labs: Laboratory Last Values WBC 5.8 K/mm3 (4.5-11.0) 07/23/21 04:00 RBC 4.97 M/mm3 (3.65-5.03) 07/23/21 04:00 Hgb 11.1 gm/dl (11.8-15.2) L 07/23/21 04:00 Hct 36.6 % (35.5-45.6) 07/23/21 04:00 MCV 74 fl (84-94) L 07/23/21 04:00 MCH 22 pg (28-32) L 07/23/21 04:00 MCHC 31 % (32-34) L 07/23/21 04:00 RDW 15.5 % (13.2-15.2) H 07/23/21 04:00 Plt Count 202 K/mm3 (140-440) 07/23/21 04:00 Lymph % (Auto) 21.1 % (13.4-35.0) 07/22/21 02:45 [place] % (Auto) Director Visual 07/23/21 04:00 Eos % (Auto) 0.8 % (0.0-4.3) 07/22/21 02:45 Baso % (Auto) 0.2 % (0.0-1.8) 07/22/21 02:45 Lymph # (Auto) 1.6 K/mm3 (1.2-5.4) 07/22/21 02:45 [place] # (Auto) 0.6 K/mm3 (0.0-0.8) 07/22/21 02:45 Eos # (Auto) 0.1 K/mm3 (0.0-0.4) 07/22/21 02:45 Baso # (Auto) 0.0 K/mm3 (0.0-0.1) 07/22/21 02:45 Add Manual Diff Complete 07/23/21 04:00 Total Counted 100 07/23/21 04:00 Seg Neutrophils % 70.0 % (40.0-70.0) 07/22/21 02:45 Seg Neuts % (Manual) 48.0 % (40.0-70.0) 07/23/21 04:00 Band Neutrophils % 0 % 07/23/21 04:00 Lymphocytes % (Manual) 45.0 % (13.4-35.0) H 07/23/21 04:00 Reactive Lymphs % (Man) 0 % 07/23/21 04:00 Monocytes % (Manual) 7.0 % (0.0-7.3) 07/23/21 04:00 Eosinophils % (Manual) 0 % (0.0-4.3) 07/23/21 04:00 Basophils % (Manual) 0 % (0.0-1.8) 07/23/21 04:00 Metamyelocytes % 0 % 07/23/21 04:00 Myelocytes % 0 % 07/23/21 04:00 Promyelocytes % 0 % 07/23/21 04:00 Blast Cells % 0 % 07/23/21 04:00 Nucleated RBC % Not Reportable 07/23/21 04:00 Seg Neutrophils # 5.3 K/mm3 (1.8-7.7) 07/22/21 02:45 Seg Neutrophils # Man 2.8 K/mm3 (1.8-7.7) 07/23/21 04:00 Band Neutrophils # 0.0 K/mm3 07/23/21 04:00 Lymphocytes # (Manual) 2.6 K/mm3 (1.2-5.4) 07/23/21 04:00 Abs React Lymphs (Man) 0.0 K/mm3 07/23/21 04:00 Monocytes # (Manual) 0.4 K/mm3 (0.0-0.8) 07/23/21 04:00 Eosinophils # (Manual) 0.0 K/mm3 (0.0-0.4) 07/23/21 04:00 Basophils # (Manual) 0.0 K/mm3 (0.0-0.1) 07/23/21 04:00 Metamyelocytes # 0.0 K/mm3 07/23/21 04:00 Myelocytes # 0.0 K/mm3 07/23/21 04:00 Promyelocytes # 0.0 K/mm3 07/23/21 04:00 Blast Cells # 0.0 K/mm3 07/23/21 04:00 WBC Morphology Not Reportable 07/23/21 04:00 Hypersegmented Neuts Not Reportable 07/23/21 04:00 Hyposegmented Neuts Not Reportable 07/23/21 04:00 Hypogranular Neuts Not Reportable 07/23/21 04:00 Smudge Cells Not Reportable 07/23/21 04:00 Toxic Granulation Not Reportable 07/23/21 04:00 Toxic Vacuolation Not Reportable 07/23/21 04:00 Dohle Bodies Not Reportable 07/23/21 04:00 Pelger-Huet Anomaly Not Reportable 07/23/21 04:00 Cortez Rods Not Reportable 07/23/21 04:00 Platelet Estimate Consistent w auto 07/23/21 04:00 Clumped Platelets Not Reportable 07/23/21 04:00 Plt Clumps, EDTA Not Reportable 07/23/21 04:00 Large Platelets Not Reportable 07/23/21 04:00 Giant Platelets Not Reportable 07/23/21 04:00 Platelet Satelliting Not Reportable 07/23/21 04:00 Plt Morphology Comment Not Reportable 07/23/21 04:00 RBC Morphology Not Reportable 07/23/21 04:00 Dimorphic RBCs Not Reportable 07/23/21 04:00 Polychromasia Not Reportable 07/23/21 04:00 Hypochromasia Not Reportable 07/23/21 04:00 Poikilocytosis Not Reportable 07/23/21 04:00 Anisocytosis 1+ 07/23/21 04:00 Microcytosis Not Reportable 07/23/21 04:00 Macrocytosis Not Reportable 07/23/21 04:00 Spherocytes Not Reportable 07/23/21 04:00 Pappenheimer Bodies Not Reportable 07/23/21 04:00 Sickle Cells Not Reportable 07/23/21 04:00 Target Cells Not Reportable 07/23/21 04:00 Tear Drop Cells Not Reportable 07/23/21 04:00 Ovalocytes Not Reportable 07/23/21 04:00 Helmet Cells Not Reportable 07/23/21 04:00 [place] Bodies Not Reportable 07/23/21 04:00 [place] Rings Not Reportable 07/23/21 04:00 [place] Cells Not Reportable 07/23/21 04:00 Bite Cells Not Reportable 07/23/21 04:00 Crenated Cell Not Reportable 07/23/21 04:00 Elliptocytes Not Reportable 07/23/21 04:00 Acanthocytes (Spur) Not Reportable 07/23/21 04:00 Rouleaux Not Reportable 07/23/21 04:00 Hemoglobin C Crystals Not Reportable 07/23/21 04:00 Schistocytes Not Reportable 07/23/21 04:00 Malaria parasites Not Reportable 07/23/21 04:00 Gianfranco Bodies Not Reportable 07/23/21 04:00 Hem Pathologist Commnt No 07/23/21 04:00 PT 13.0 Sec. (12.2-14.9) 07/22/21 02:45 INR 0.89 (0.87-1.13) 07/22/21 02:45 APTT 25.8 Sec. (24.2-36.6) 07/22/21 02:45 ABG pH 7.399 pH Units (7.350-7.450) 07/23/21 04:42 ABG pCO2 41.2 mm Hg 07/23/21 04:42 ABG pO2 181.4 mm Hg (80.0-90.0) H 07/23/21 04:42 ABG HCO3 24.9 mmol/L (20.0-26.0) 07/23/21 04:42 ABG O2 Saturation 99.1 % (95.0-99.0) H 07/23/21 04:42 ABG O2 Content 14.9 (0.0-44) 07/23/21 04:42 ABG Base Excess 0.1 mmol/L (-2.0-3.0) 07/23/21 04:42 ABG Hemoglobin 10.6 gm/dl (14.0-18.0) L 07/23/21 04:42 ABG Carboxyhemoglobin 1.0 % (0.0-5.0) 07/23/21 04:42 ABG Methemoglobin 0.4 % (0.0-1.5) 07/23/21 04:42 Oxyhemoglobin 97.7 % (95.0-99.0) 07/23/21 04:42 FiO2 40 % 07/23/21 04:42 Sodium 138 mmol/L (137-145) 07/23/21 04:00 Potassium 4.4 mmol/L (3.6-5.0) 07/23/21 04:00 Chloride 105.1 mmol/L (98-107) 07/23/21 04:00 Carbon Dioxide 24 mmol/L (22-30) D 07/23/21 04:00 Anion Gap 13 mmol/L 07/23/21 04:00 BUN 5 mg/dL (9-20) L 07/23/21 04:00 Creatinine 1.2 mg/dL (0.8-1.3) 07/23/21 04:00 Estimated GFR > 60 ml/min 07/23/21 04:00 BUN/Creatinine Ratio 4 % 07/23/21 04:00 Glucose 92 mg/dL (75-100) 07/23/21 04:00 Lactic Acid 1.50 mmol/L (0.7-2.0) 07/22/21 09:00 Calcium 8.3 mg/dL (8.4-10.2) L 07/23/21 04:00 Total Bilirubin 0.50 mg/dL (0.1-1.2) 07/22/21 02:45 AST 29 units/L (5-40) 07/22/21 02:45 ALT 19 units/L (7-56) 07/22/21 02:45 Alkaline Phosphatase 67 units/L (35-129) 07/22/21 02:45 Total Creatine Kinase 843 units/L (55-170) H 07/22/21 02:45 Total Protein 8.3 g/dL (6.3-8.2) H 07/22/21 02:45 Albumin 4.3 g/dL (3.9-5) 07/22/21 02:45 Albumin/Globulin Ratio 1.1 % 07/22/21 02:45 TSH 3.360 mlU/mL (0.270-4.200) 07/22/21 02:45 Urine Color Yellow (Yellow) 07/22/21 Unknown Urine Turbidity Clear (Clear) 07/22/21 Unknown Urine pH 5.0 (5.0-7.0) 07/22/21 Unknown Ur Specific [place] 1.024 (1.003-1.030) 07/22/21 Unknown Urine Protein 30 mg/dl mg/dL (Negative) 07/22/21 Unknown Urine Glucose (UA) Neg mg/dL (Negative) 07/22/21 Unknown Urine Ketones Tr mg/dL (Negative) 07/22/21 Unknown Urine Blood Neg (Negative) 07/22/21 Unknown Urine Nitrite Neg (Negative) 07/22/21 Unknown Urine Bilirubin Neg (Negative) 07/22/21 Unknown Urine Urobilinogen 4.0 mg/dL (<2.0) 07/22/21 Unknown Ur Leukocyte Esterase Neg (Negative) 07/22/21 Unknown Urine WBC (Auto) 6.0 /HPF (0.0-6.0) 07/22/21 Unknown Urine RBC (Auto) 2.0 /HPF (0.0-6.0) 07/22/21 Unknown U Epithel Cells (Auto) < 1.0 /HPF (0-13.0) 07/22/21 Unknown Urine Bacteria (Auto) 1+ /HPF (Negative) 07/22/21 Unknown Urine Mucus Few /HPF 07/22/21 Unknown Salicylates < 0.3 mg/dL (2.8-20.0) L 07/22/21 02:45 Urine Opiates Screen Presumptive negative 07/22/21 Unknown Urine Methadone Screen Presumptive negative 07/22/21 Unknown Acetaminophen 5.0 ug/mL (10.0-30.0) L 07/22/21 03:00 Ur Barbiturates Screen Presumptive negative 07/22/21 Unknown Ur Phencyclidine Scrn Presumptive negative 07/22/21 Unknown Ur Amphetamines Screen Presumptive positive 07/22/21 Unknown U Benzodiazepines Scrn Presumptive negative 07/22/21 Unknown Urine Cocaine Screen Presumptive negative 07/22/21 Unknown U Marijuana (THC) Screen Presumptive positive 07/22/21 Unknown Drugs of Abuse Note Disclamer 07/22/21 Unknown Plasma/Serum Alcohol < 0.01 % (0-0.07) 07/22/21 02:45 Syphilis IgG/IgM Ab Reactive (NonReactive) A 07/22/21 02:45 RPR Titer 1:32 (1:1-1:2) 07/22/21 02:45 Coronavirus (PCR) Negative (Negative) 07/22/21 09:45 Microbiology: Microbiology 07/22/21 02:37 Peripheral/Venous Blood Culture - Preliminary NO GROWTH AFTER 24 HOURS 07/22/21 02:45 Peripheral/Venous Blood Culture - Preliminary NO GROWTH AFTER 24 HOURS 07/22/21 03:33 Tracheal Aspirate Sputum Culture - Preliminary Conrad/IV: Voiding Method Indwelling Catheter Active Medications - Current Medications Current Medications: Generic Name Dose Route Start Last Admin Trade Name Freq PRN Reason Stop Dose Admin Acetaminophen 650 mg 07/22/21 04:03 Acetaminophen 650 Mg Rect Supp MS Q6H PRN Pain MILD(1-3)/Fever >100.5/ALBERT Acetaminophen 650 mg 07/22/21 13:40 Acetaminophen 325 Mg/10.15 Ml Oral Liqd Unit Dose FEEDTUBE Q6H PRN Pain, Mild (1-3) Famotidine 10 mg 07/23/21 10:00 07/23/21 10:11 Famotidine 10 Mg Tab PO 10 mg BID AMOS Administration Fentanyl 50 mcg 07/22/21 02:26 Fentanyl 100 Mcg/2 Ml Inj IV Q10MIN PRN ANALGESIA Haloperidol Lactate 5 mg 07/22/21 02:01 07/22/21 02:10 Haloperidol Lactate 5 Mg/1 Ml Inj IM 5 mg Q6HR PRN Administration Agitation Heparin Sodium (Porcine) 5,000 unit 07/22/21 10:00 07/23/21 10:11 Heparin 5,000 Unit/1 Ml Vial SUB-Q 5,000 unit Q12HR AMOS Administration Hydrophilic Ointment 1 applic 07/22/21 02:26 Lip Therapy Vaseline TP Q2HR PRN Dry Lips Fentanyl Citrate 2,000 mcg in 100 mls @ 3.43 mls/hr 07/22/21 03:00 Fentanyl Drip Premix IV TITR AMOS Protocol 1 MCG/KG/HR Propofol 1,000 mg in 100 mls @ 12.348 mls/hr 07/22/21 03:00 07/23/21 08:38 Diprivan 10 Mg/Ml IV 40 mcg/kg/min TITR AMOS 16.464 mls/hr Administration Protocol 30 MCG/KG/MIN Sodium Chloride 1,000 mls @ 75 mls/hr 07/22/21 04:15 07/23/21 00:43 Nacl 0.9% 1000 Ml IV 75 mls/hr DIRECT AMOS Administration Ceftriaxone Sodium 2 gm in 100 mls @ 200 mls/hr 07/22/21 16:00 07/23/21 05:29 Rocephin/Ns 2 Gm/100 Ml IV 200 mls/hr Q12H AMOS Administration Protocol Vancomycin HCl 1 gm in 250 mls @ 166.667 mls/hr 07/22/21 19:00 07/23/21 06:31 Vancomycin/Ns 1 Gm/250 Ml IV 166.667 mls/hr Q12H AMOS Administration Acyclovir 690 mg/ Sodium 113.8 mls @ 100 mls/hr 07/22/21 14:00 07/23/21 05:31 Chloride IV 100 mls/hr Q8HR AMOS Administration Protocol Dexmedetomidine HCl 200 mcg/ 50 mls @ 3.43 mls/hr 07/23/21 11:00 Sodium Chloride IV TITRATE AMOS Protocol 0.2 MCG/KG/HR Multi-Ingred Cream/Lotion/Oil/Oint 1 applic 07/22/21 02:26 Mineral Oil/Petrolatum, White Ophth Oint 3.5 Gm OU Q4HR PRN Dry Eye(s) Ondansetron HCl 4 mg 07/22/21 04:03 Ondansetron 4 Mg/2 Ml Inj IV Q8H PRN Nausea And Vomiting Senna/Docusate Sodium 1 tab 07/22/21 10:00 07/23/21 10:11 Sennosides/Docusate Sodium 8.6/50 Mg Tab FEEDTUBE 1 tab BID AMSO Administration Sodium Chloride 10 ml 07/22/21 10:00 07/23/21 10:12 Sodium Chloride 0.9% 10 Ml Flush Syringe IV 10 ml BID AMOS Administration Sodium Chloride 10 ml 07/22/21 04:03 Sodium Chloride 0.9% 10 Ml Flush Syringe IV PRN PRN LINE FLUSH Nutrition/Malnutrition Assess - Dietary Evaluation Nutrition/Malnutrition Findings: Nutrition Notes Start: 07/22/21 11:24 Freq: Status: Active Protocol: Document 07/22/21 11:24 AMA (Rec: 07/22/21 11:31 AMA [id number]) Nutrition Notes Need for Assessment generated from: MD Order,Education Initial or Follow up Assessment Other Pertinent Diagnosis AMS, Fever Current Diet NPO Labs/Tests Cr 1.5 Pertinent Medications Propofol at 16.464ml/hr ( provides 435 kcal), NS at 75ml /hr Height 5 ft 10 in Weight 68.6 kg [place] Body Weight (kg) 75.45 BMI 21.7 Weight Status Appropriate Subjective/Other Information RD consulted for diet education and TF. Pt not appropriate for diet education at this time as he is intubated and mechanically ventilated. PMHx includes HIV /AIDS and seizures. Burn Absent Trauma Absent Minimum of two criteria No #1 Nutrition Diagnosis Inadequate oral intake Etiology mech ventilation As Evidenced by Signs and Symptoms pt NPO Is patient on ventilator? Yes Is Patient Ambulatory and/or Out of Bed No REE-([facility]-confined to bed) [phone] Calculation Used for Recommendations [facility] Additional Notes Pro needs 1.2-2g/k-137g/ day Fluid needs 1ml/kcal Nutrition Intervention Nutrition Support: Osmolite 1.5 at 55ml/hr with 150ml water flush q4h. Kcal 1,980 Protein (gm) 83 Carbohydrates (gm) 269 Fat (gm) 65 Fluid (mL) 1,006 Fiber (gm) 0 Goal #1 TF tolerance Goal #2 TF to meet at least 75% energy and pro needs Anticipated Discharge Needs: Unable to identify at this time Follow-Up By: 07/24/21 Additional Comments F/U: new TF, vent status, propofol <MARSHALL VELAZQUEZ - Last Filed: 07/24/21 07:15> Assessment and Plan Assessment and plan: I saw and evaluated the patient. I agree with the findings and the plan of care as documented in the Nurse Practitioner's~note, with the following corrections and additions. Hospitalist Physical - Constitutional Vitals: Temp Pulse Resp BP Pulse Ox 97.5 F L 51 L 8 L 145/85 100 07/24/21 04:00 07/24/21 06:01 07/24/21 06:01 07/24/21 06:01 07/24/21 06:01 Results - Labs CBC & Chem 7: 07/24/21 03:40 07/24/21 03:40 Labs: Laboratory Last Values WBC 4.3 K/mm3 (4.5-11.0) L 07/24/21 03:40 RBC 4.73 M/mm3 (3.65-5.03) 07/24/21 03:40 Hgb 10.8 gm/dl (11.8-15.2) L 07/24/21 03:40 Hct 34.4 % (35.5-45.6) L 07/24/21 03:40 MCV 73 fl (84-94) L 07/24/21 03:40 MCH 23 pg (28-32) L 07/24/21 03:40 MCHC 31 % (32-34) L 07/24/21 03:40 RDW 15.6 % (13.2-15.2) H 07/24/21 03:40 Plt Count 195 K/mm3 (140-440) 07/24/21 03:40 Lymph % (Auto) 21.1 % (13.4-35.0) 07/22/21 02:45 [place] % (Auto) Director Visual 07/23/21 04:00 Eos % (Auto) 0.8 % (0.0-4.3) 07/22/21 02:45 Baso % (Auto) 0.2 % (0.0-1.8) 07/22/21 02:45 Lymph # (Auto) 1.6 K/mm3 (1.2-5.4) 07/22/21 02:45 [place] # (Auto) 0.6 K/mm3 (0.0-0.8) 07/22/21 02:45 Eos # (Auto) 0.1 K/mm3 (0.0-0.4) 07/22/21 02:45 Baso # (Auto) 0.0 K/mm3 (0.0-0.1) 07/22/21 02:45 Add Manual Diff Complete 07/23/21 04:00 Total Counted 100 07/23/21 04:00 Seg Neutrophils % 70.0 % (40.0-70.0) 07/22/21 02:45 Seg Neuts % (Manual) 48.0 % (40.0-70.0) 07/23/21 04:00 Band Neutrophils % 0 % 07/23/21 04:00 Lymphocytes % (Manual) 45.0 % (13.4-35.0) H 07/23/21 04:00 Reactive Lymphs % (Man) 0 % 07/23/21 04:00 Monocytes % (Manual) 7.0 % (0.0-7.3) 07/23/21 04:00 Eosinophils % (Manual) 0 % (0.0-4.3) 07/23/21 04:00 Basophils % (Manual) 0 % (0.0-1.8) 07/23/21 04:00 Metamyelocytes % 0 % 07/23/21 04:00 Myelocytes % 0 % 07/23/21 04:00 Promyelocytes % 0 % 07/23/21 04:00 Blast Cells % 0 % 07/23/21 04:00 Nucleated RBC % Not Reportable 07/23/21 04:00 Seg Neutrophils # 5.3 K/mm3 (1.8-7.7) 07/22/21 02:45 Seg Neutrophils # Man 2.8 K/mm3 (1.8-7.7) 07/23/21 04:00 Band Neutrophils # 0.0 K/mm3 07/23/21 04:00 Lymphocytes # (Manual) 2.6 K/mm3 (1.2-5.4) 07/23/21 04:00 Abs React Lymphs (Man) 0.0 K/mm3 07/23/21 04:00 Monocytes # (Manual) 0.4 K/mm3 (0.0-0.8) 07/23/21 04:00 Eosinophils # (Manual) 0.0 K/mm3 (0.0-0.4) 07/23/21 04:00 Basophils # (Manual) 0.0 K/mm3 (0.0-0.1) 07/23/21 04:00 Metamyelocytes # 0.0 K/mm3 07/23/21 04:00 Myelocytes # 0.0 K/mm3 07/23/21 04:00 Promyelocytes # 0.0 K/mm3 07/23/21 04:00 Blast Cells # 0.0 K/mm3 07/23/21 04:00 WBC Morphology Not Reportable 07/23/21 04:00 Hypersegmented Neuts Not Reportable 07/23/21 04:00 Hyposegmented Neuts Not Reportable 07/23/21 04:00 Hypogranular Neuts Not Reportable 07/23/21 04:00 Smudge Cells Not Reportable 07/23/21 04:00 Toxic Granulation Not Reportable 07/23/21 04:00 Toxic Vacuolation Not Reportable 07/23/21 04:00 Dohle Bodies Not Reportable 07/23/21 04:00 Pelger-Huet Anomaly Not Reportable 07/23/21 04:00 [place] Rods Not Reportable 07/23/21 04:00 Platelet Estimate Consistent w auto 07/23/21 04:00 Clumped Platelets Not Reportable 07/23/21 04:00 Plt Clumps, EDTA Not Reportable 07/23/21 04:00 Large Platelets Not Reportable 07/23/21 04:00 Giant Platelets Not Reportable 07/23/21 04:00 Platelet Satelliting Not Reportable 07/23/21 04:00 Plt Morphology Comment Not Reportable 07/23/21 04:00 RBC Morphology Not Reportable 07/23/21 04:00 Dimorphic RBCs Not Reportable 07/23/21 04:00 Polychromasia Not Reportable 07/23/21 04:00 Hypochromasia Not Reportable 07/23/21 04:00 Poikilocytosis Not Reportable 07/23/21 04:00 Anisocytosis 1+ 07/23/21 04:00 Microcytosis Not Reportable 07/23/21 04:00 Macrocytosis Not Reportable 07/23/21 04:00 Spherocytes Not Reportable 07/23/21 04:00 Pappenheimer Bodies Not Reportable 07/23/21 04:00 Sickle Cells Not Reportable 07/23/21 04:00 Target Cells Not Reportable 07/23/21 04:00 Tear Drop Cells Not Reportable 07/23/21 04:00 Ovalocytes Not Reportable 07/23/21 04:00 Helmet Cells Not Reportable 07/23/21 04:00 [place] Bodies Not Reportable 07/23/21 04:00 [place] Rings Not Reportable 07/23/21 04:00 [place] Cells Not Reportable 07/23/21 04:00 Bite Cells Not Reportable 07/23/21 04:00 Crenated Cell Not Reportable 07/23/21 04:00 Elliptocytes Not Reportable 07/23/21 04:00 Acanthocytes (Spur) Not Reportable 07/23/21 04:00 Rouleaux Not Reportable 07/23/21 04:00 Hemoglobin C Crystals Not Reportable 07/23/21 04:00 Schistocytes Not Reportable 07/23/21 04:00 Malaria parasites Not Reportable 07/23/21 04:00 Gianfranco Bodies Not Reportable 07/23/21 04:00 Hem Pathologist Commnt No 07/23/21 04:00 PT 13.0 Sec. (12.2-14.9) 07/22/21 02:45 INR 0.89 (0.87-1.13) 07/22/21 02:45 APTT 25.8 Sec. (24.2-36.6) 07/22/21 02:45 ABG pH 7.399 pH Units (7.350-7.450) 07/23/21 04:42 ABG pCO2 41.2 mm Hg 07/23/21 04:42 ABG pO2 181.4 mm Hg (80.0-90.0) H 07/23/21 04:42 ABG HCO3 24.9 mmol/L (20.0-26.0) 07/23/21 04:42 ABG O2 Saturation 99.1 % (95.0-99.0) H 07/23/21 04:42 ABG O2 Content 14.9 (0.0-44) 07/23/21 04:42 ABG Base Excess 0.1 mmol/L (-2.0-3.0) 07/23/21 04:42 ABG Hemoglobin 10.6 gm/dl (14.0-18.0) L 07/23/21 04:42 ABG Carboxyhemoglobin 1.0 % (0.0-5.0) 07/23/21 04:42 ABG Methemoglobin 0.4 % (0.0-1.5) 07/23/21 04:42 Oxyhemoglobin 97.7 % (95.0-99.0) 07/23/21 04:42 FiO2 40 % 07/23/21 04:42 Sodium 139 mmol/L (137-145) 07/24/21 03:40 Potassium 3.5 mmol/L (3.6-5.0) L D 07/24/21 03:40 Chloride 104.3 mmol/L (98-107) 07/24/21 03:40 Carbon Dioxide 28 mmol/L (22-30) 07/24/21 03:40 Anion Gap 10 mmol/L 07/24/21 03:40 BUN 5 mg/dL (9-20) L 07/24/21 03:40 Creatinine 0.9 mg/dL (0.8-1.3) 07/24/21 03:40 Estimated GFR > 60 ml/min 07/24/21 03:40 BUN/Creatinine Ratio 6 % 07/24/21 03:40 Glucose 106 mg/dL (75-100) H 07/24/21 03:40 POC Glucose 101 mg/dL (70-105) 07/22/21 17:37 Lactic Acid 1.50 mmol/L (0.7-2.0) 07/22/21 09:00 Calcium 8.0 mg/dL (8.4-10.2) L 07/24/21 03:40 Total Bilirubin 0.50 mg/dL (0.1-1.2) 07/22/21 02:45 AST 29 units/L (5-40) 07/22/21 02:45 ALT 19 units/L (7-56) 07/22/21 02:45 Alkaline Phosphatase 67 units/L (35-129) 07/22/21 02:45 Total Creatine Kinase 843 units/L (55-170) H 07/22/21 02:45 Total Protein 8.3 g/dL (6.3-8.2) H 07/22/21 02:45 Albumin 4.3 g/dL (3.9-5) 07/22/21 02:45 Albumin/Globulin Ratio 1.1 % 07/22/21 02:45 TSH 3.360 mlU/mL (0.270-4.200) 07/22/21 02:45 Urine Color Yellow (Yellow) 07/22/21 Unknown Urine Turbidity Clear (Clear) 07/22/21 Unknown Urine pH 5.0 (5.0-7.0) 07/22/21 Unknown Ur Specific [place] 1.024 (1.003-1.030) 07/22/21 Unknown Urine Protein 30 mg/dl mg/dL (Negative) 07/22/21 Unknown Urine Glucose (UA) Neg mg/dL (Negative) 07/22/21 Unknown Urine Ketones Tr mg/dL (Negative) 07/22/21 Unknown Urine Blood Neg (Negative) 07/22/21 Unknown Urine Nitrite Neg (Negative) 07/22/21 Unknown Urine Bilirubin Neg (Negative) 07/22/21 Unknown Urine Urobilinogen 4.0 mg/dL (<2.0) 07/22/21 Unknown Ur Leukocyte Esterase Neg (Negative) 07/22/21 Unknown Urine WBC (Auto) 6.0 /HPF (0.0-6.0) 07/22/21 Unknown Urine RBC (Auto) 2.0 /HPF (0.0-6.0) 07/22/21 Unknown U Epithel Cells (Auto) < 1.0 /HPF (0-13.0) 07/22/21 Unknown Urine Bacteria (Auto) 1+ /HPF (Negative) 07/22/21 Unknown Urine Mucus Few /HPF 07/22/21 Unknown Salicylates < 0.3 mg/dL (2.8-20.0) L 07/22/21 02:45 Urine Opiates Screen Presumptive negative 07/22/21 Unknown Urine Methadone Screen Presumptive negative 07/22/21 Unknown Acetaminophen 5.0 ug/mL (10.0-30.0) L 07/22/21 03:00 Ur Barbiturates Screen Presumptive negative 07/22/21 Unknown Ur Phencyclidine Scrn Presumptive negative 07/22/21 Unknown Ur Amphetamines Screen Presumptive positive 07/22/21 Unknown U Benzodiazepines Scrn Presumptive negative 07/22/21 Unknown Urine Cocaine Screen Presumptive negative 07/22/21 Unknown U Marijuana (THC) Screen Presumptive positive 07/22/21 Unknown Drugs of Abuse Note Disclamer 07/22/21 Unknown Plasma/Serum Alcohol < 0.01 % (0-0.07) 07/22/21 02:45 Syphilis IgG/IgM Ab Reactive (NonReactive) A 07/22/21 02:45 RPR Titer 1:32 (1:1-1:2) 07/22/21 02:45 Coronavirus (PCR) Negative (Negative) 07/22/21 09:45 Microbiology: Microbiology 07/22/21 02:37 Peripheral/Venous Blood Culture - Preliminary NO GROWTH AFTER 48 HOURS 07/22/21 02:45 Peripheral/Venous Blood Culture - Preliminary NO GROWTH AFTER 48 HOURS 07/22/21 03:33 Tracheal Aspirate Sputum Culture - Preliminary Conrad/IV: Voiding Method Condom Catheter Active Medications - Current Medications Current Medications: Generic Name Dose Route Start Last Admin Trade Name Freq PRN Reason Stop Dose Admin Acetaminophen 650 mg 07/22/21 04:03 Acetaminophen 650 Mg Rect Supp MS Q6H PRN Pain MILD(1-3)/Fever >100.5/ALBERT Acetaminophen 650 mg 07/22/21 13:40 07/24/21 05:40 Acetaminophen 325 Mg/10.15 Ml Oral Liqd Unit Dose FEEDTUBE 650 mg Q6H PRN Administration Pain, Mild (1-3) Famotidine 10 mg 07/23/21 10:00 07/23/21 21:14 Famotidine 10 Mg Tab PO 10 mg BID AMOS Administration Fentanyl 50 mcg 07/22/21 02:26 Fentanyl 100 Mcg/2 Ml Inj IV Q10MIN PRN ANALGESIA Haloperidol Lactate 5 mg 07/22/21 02:01 07/22/21 02:10 Haloperidol Lactate 5 Mg/1 Ml Inj IM 5 mg Q6HR PRN Administration Agitation Heparin Sodium (Porcine) 5,000 unit 07/22/21 10:00 07/23/21 21:14 Heparin 5,000 Unit/1 Ml Vial SUB-Q 5,000 unit Q12HR AMOS Administration Fentanyl Citrate 2,000 mcg in 100 mls @ 3.43 mls/hr 07/22/21 03:00 Fentanyl Drip Premix IV TITR AMOS Protocol 1 MCG/KG/HR Sodium Chloride 1,000 mls @ 75 mls/hr 07/22/21 04:15 07/23/21 20:17 Nacl 0.9% 1000 Ml IV 75 mls/hr DIRECT AMOS Administration Ceftriaxone Sodium 2 gm in 100 mls @ 200 mls/hr 07/22/21 16:00 07/24/21 05:34 Rocephin/Ns 2 Gm/100 Ml IV Infused Q12H AMOS Infusion Protocol Vancomycin HCl 1 gm in 250 mls @ 166.667 mls/hr 07/22/21 19:00 07/24/21 06:42 Vancomycin/Ns 1 Gm/250 Ml IV 166.67 mls/hr Q12H AMOS Administration Acyclovir 690 mg/ Sodium 113.8 mls @ 100 mls/hr 07/22/21 14:00 07/24/21 07:14 Chloride IV Infused Q8HR AMOS Infusion Protocol Dexmedetomidine HCl 200 mcg/ 50 mls @ 3.43 mls/hr 07/23/21 11:00 Sodium Chloride IV TITRATE AMOS Protocol 0.2 MCG/KG/HR Ondansetron HCl 4 mg 07/22/21 04:03 Ondansetron 4 Mg/2 Ml Inj IV Q8H PRN Nausea And Vomiting Senna/Docusate Sodium 1 tab 07/22/21 10:00 07/23/21 22:00 Sennosides/Docusate Sodium 8.6/50 Mg Tab FEEDTUBE Not Given BID AMOS Sodium Chloride 10 ml 07/22/21 10:00 07/24/21 01:52 Sodium Chloride 0.9% 10 Ml Flush Syringe IV 10 ml BID AMOS Administration Sodium Chloride 10 ml 07/22/21 04:03 Sodium Chloride 0.9% 10 Ml Flush Syringe IV PRN PRN LINE FLUSH Nutrition/Malnutrition Assess - Dietary Evaluation Nutrition/Malnutrition Findings: Nutrition Notes Start: 07/22/21 11:24 Freq: Status: Active Protocol: Document 07/23/21 11:47 AMA (Rec: 07/23/21 11:50 [email or web address]) Nutrition Notes Need for Assessment generated from: independent producer,MST Initial or Follow up Brief Note Subjective/Other Information Pt screened for malnutrition risk and skin risk (Saturnino score: 14). Pt currently being followed by RD. F/U per previous assessment. Nutrition Intervention Follow-Up By: 07/24/21 Additional Comments F/U: new TF, vent status, propofol
--- NOTE | 2021-07-23 11:56 | Progress Note ---
Subjective Date of service: 07/23/21 Principal diagnosis: sepsis Interval history: ID Plan of care note: 32-year-old male with history of HIV infection, unknown details, brought to the ED due to altered mental status. In the ED patient was delirious and febrile. Patient was intubated for airway protection. On arrival, temperature 101.4, HR 156, RR 50, O2 sat 97, BP 114/78. Initial WBC 7.6. Hemoglobin 12.4. Platelets 245. Lactate 11. Creatinine 1.4. Urinalysis unremarkable. Urine drug screen positive for marijuana and amphetamines. RPR reactive 1:32. SARS-CoV-[address] of the head unremarkable. Chest x-ray unremarkable. ED attempted lumbar puncture however not successful. Assessment/Plan: #Severe sepsis: Present admission with fever, tachycardia, altered mental status, elevated lactate, elevated creatinine; of unclear etiology, suspect acute meningitis/drug intoxication/neurosyphilis. Blood culture no growth so far. Urinalysis unremarkable. Chest x-ray unremarkable. CT head unremarkable. #NOAH: Likely due to 1. Improving. #Syphilis: Rule out neurosyphilis Recommendations: Obtain fluoroscopy guided lumbar puncture, send CSF for cell count, differential, glucose, protein, cryptococcal antigen, HSV 1/2 PCR, VDRL Obtain HIV viral load and CD4 Obtain cryptococcal serum antigen Continue vancomycin with PK consult Continue ceftriaxone 2 g IV every 12 hours Continue acyclovir 10 mg/kg IV q 8 hour If mentation not better consider brain MRI when stable Full consultation to follow tomorrow Destini Parra MD Infectious Disease Acid Etch Operator [facility] C: [phone] O: [phone] Objective - Constitutional Vitals: Vital Signs Temp Pulse Resp BP Pulse Ox 99.5 F 84 17 132/73 100 07/23/21 08:00 07/23/21 11:00 07/23/21 11:00 07/23/21 11:00 07/23/21 10:51 Temperature -Last 24 Hours Temperature 99.5 F Temperature 100.8 F Temperature 100.8 F Temperature 99.9 F Temperature 99.7 F Temperature 99.3 F Temperature 99.6 F Temperature 99.6 F - Labs CBC & Chem 7: 07/23/21 04:00 07/23/21 04:00 Labs: Abnormal lab results 07/23/21 07/23/21 07/23/21 Range/Units 04:00 04:00 04:42 Hgb 11.1 L (11.8-15.2) gm/dl MCV 74 L (84-94) fl MCH 22 L (28-32) pg MCHC 31 L (32-34) % RDW 15.5 H (13.2-15.2) % Lymphocytes % (Manual) 45.0 H (13.4-35.0) % ABG pO2 181.4 H (80.0-90.0) mm Hg ABG O2 Saturation 99.1 H (95.0-99.0) % ABG Hemoglobin 10.6 L (14.0-18.0) gm/dl BUN 5 L (9-20) mg/dL Calcium 8.3 L (8.4-10.2) mg/dL
--- NOTE | 2021-07-23 13:17 | Progress Note ---
Assessment and Plan Acute hypoxic Respiratory Failure on MVS Polysubstance abuse disorder Fever with AMS h/o HIV Syphilis- Unclear if active vs Latent Lactic Acidosis/Metabolic Acidosis-resolved R/O Meningitis Acute Encephalopathy- Toxic vs Metabolic Acute Kidney Injury(NOAH) most likely vasomotor Nephropathy Patient to be placed of SBT. Hold Propofol. PSV 6, if he tolerates it well will liberate from MVS Keep potassium 4, Magnesium 2 and Phosp 2.5 to optimize resp muscle function -Titrate supplemental oxygen to keep SpO2 89-92% -VAP bundle addressed, aspiration precautions HOB >40 -Lung protective strategies, -CXR, ABG as clinically indicated -Daily assessment for readiness to wean. Daily SBT -Monitoring renal function, hemodynamics and electrolyte profile -Replete electrolytes as clinically indicated -Accuchecks with glycemic control. target blood glucose 140-180 mg/dL. Avoid hypoglycemia -VTE prophylaxis- -Avoid nephrotoxins -Stress ulcer prophylaxis- -Mobility, frequent turning, off loading per facility protocol to prevent pressure ulcers CONDITION:CRITICAL PROGNOSIS: GUARDED CODE STATUS; FULL CODE The high probability of a clinically significant, sudden or life threatening deterioration of the respiratory, cardiovascular, neurology system required my full and direct attention, intervention and personal management. The aggregate critical care time was [35] minutes. This time is in addition to time spent performing reported procedures but includes the following: [x] Data Review and interpretation [x] Patient assessment and monitoring of vital signs [x] Documentation [x] Medication orders and management Subjective Date of service: 07/23/21 Principal diagnosis: sepsis Interval history: This is a 31-year-old male with known past medical history of HIV/AIDS and seizures admitted fevers and AMS now on ventilatory support for airway protection Seen and examined. No adverse overnight events. reported agitation when SAT was attempted this morning. Discussed with respiratory and nursing staff. No fevers, no vomiting, no diarrhea Remains intubated on MVS, PEEP 6 FIO2 40% Objective Vital Signs - 12hr 07/23/21 07/23/21 07/23/21 01:21 01:31 01:41 Temperature Pulse Rate 91 H 89 87 Pulse Rate [ From Monitor] Respiratory 19 18 19 Rate Blood Pressure 151/81 151/81 151/81 O2 Sat by Pulse 100 100 100 Oximetry 07/23/21 07/23/21 07/23/21 01:51 02:00 02:11 Temperature Pulse Rate 93 H 84 89 Pulse Rate [ From Monitor] Respiratory 19 18 19 Rate Blood Pressure 151/81 146/80 146/80 O2 Sat by Pulse 100 100 100 Oximetry 07/23/21 07/23/21 07/23/21 02:21 02:31 02:41 Temperature Pulse Rate 91 H 85 90 Pulse Rate [ From Monitor] Respiratory 19 18 19 Rate Blood Pressure 146/80 146/80 146/80 O2 Sat by Pulse 100 100 100 Oximetry 07/23/21 07/23/21 07/23/21 02:51 03:00 03:11 Temperature Pulse Rate 85 80 88 Pulse Rate [ From Monitor] Respiratory 19 18 19 Rate Blood Pressure 146/80 157/82 157/82 O2 Sat by Pulse 100 100 100 Oximetry 07/23/21 07/23/21 07/23/21 03:21 03:31 03:41 Temperature Pulse Rate 88 89 86 Pulse Rate [ From Monitor] Respiratory 19 18 19 Rate Blood Pressure 157/82 157/82 157/82 O2 Sat by Pulse 100 100 100 Oximetry 07/23/21 07/23/21 07/23/21 03:51 04:00 04:11 Temperature 100.8 F H Pulse Rate 89 88 83 Pulse Rate [ 71 From Monitor] Respiratory 18 18 19 Rate Blood Pressure 157/82 149/86 149/86 O2 Sat by Pulse 100 100 100 Oximetry 07/23/21 07/23/21 07/23/21 04:21 04:31 04:41 Temperature Pulse Rate 86 91 H 86 Pulse Rate [ From Monitor] Respiratory 19 19 19 Rate Blood Pressure 149/86 149/86 149/86 O2 Sat by Pulse 100 100 100 Oximetry 07/23/21 07/23/21 07/23/21 04:43 04:51 05:00 Temperature Pulse Rate 86 87 87 Pulse Rate [ From Monitor] Respiratory 19 18 Rate Blood Pressure 149/86 149/86 150/74 O2 Sat by Pulse 100 100 100 Oximetry 07/23/21 07/23/21 07/23/21 05:09 05:11 05:21 Temperature Pulse Rate 84 76 Pulse Rate [ From Monitor] Respiratory 18 17 Rate Blood Pressure 150/74 150/74 O2 Sat by Pulse 100 100 100 Oximetry 07/23/21 07/23/21 07/23/21 05:31 05:41 05:51 Temperature Pulse Rate 84 85 87 Pulse Rate [ From Monitor] Respiratory 18 18 20 Rate Blood Pressure 150/74 150/74 150/74 O2 Sat by Pulse 100 100 100 Oximetry 07/23/21 07/23/21 07/23/21 06:00 06:11 06:21 Temperature Pulse Rate 83 88 82 Pulse Rate [ From Monitor] Respiratory 18 18 21 Rate Blood Pressure 141/79 141/79 141/79 O2 Sat by Pulse 100 100 100 Oximetry 07/23/21 07/23/21 07/23/21 06:31 06:41 06:51 Temperature Pulse Rate 90 85 86 Pulse Rate [ From Monitor] Respiratory 17 18 18 Rate Blood Pressure 141/79 141/79 141/79 O2 Sat by Pulse 100 100 100 Oximetry 07/23/21 07/23/21 07/23/21 07:00 07:11 07:15 Temperature Pulse Rate 90 86 83 Pulse Rate [ From Monitor] Respiratory 18 18 Rate Blood Pressure 144/80 144/80 144/80 O2 Sat by Pulse 100 100 100 Oximetry 07/23/21 07/23/21 07/23/21 07:21 07:30 07:41 Temperature Pulse Rate 86 80 84 Pulse Rate [ From Monitor] Respiratory 15 18 18 Rate Blood Pressure 144/80 151/81 144/80 O2 Sat by Pulse 100 100 100 Oximetry 07/23/21 07/23/21 07/23/21 07:51 08:00 08:04 Temperature 99.5 F Pulse Rate 86 84 89 Pulse Rate [ 89 From Monitor] Respiratory 18 18 18 Rate Blood Pressure 144/80 137/69 O2 Sat by Pulse 100 100 100 Oximetry 07/23/21 07/23/21 07/23/21 08:11 08:21 08:31 Temperature Pulse Rate 84 87 73 Pulse Rate [ From Monitor] Respiratory 18 18 18 Rate Blood Pressure 137/69 137/69 137/69 O2 Sat by Pulse 100 100 100 Oximetry 07/23/21 07/23/21 07/23/21 08:41 08:51 09:00 Temperature Pulse Rate 72 78 102 H Pulse Rate [ From Monitor] Respiratory 18 18 16 Rate Blood Pressure 137/69 137/69 152/86 O2 Sat by Pulse 100 100 100 Oximetry 07/23/21 07/23/21 07/23/21 09:11 09:21 09:31 Temperature Pulse Rate 92 H 87 89 Pulse Rate [ From Monitor] Respiratory 19 17 18 Rate Blood Pressure 152/86 152/86 152/86 O2 Sat by Pulse 100 100 100 Oximetry 07/23/21 07/23/21 07/23/21 09:41 09:51 10:00 Temperature Pulse Rate 85 89 94 H Pulse Rate [ From Monitor] Respiratory 18 18 17 Rate Blood Pressure 152/86 152/86 129/78 O2 Sat by Pulse 100 100 100 Oximetry 07/23/21 07/23/21 07/23/21 10:11 10:21 10:31 Temperature Pulse Rate 77 82 83 Pulse Rate [ From Monitor] Respiratory 19 18 18 Rate Blood Pressure 129/78 129/78 129/78 O2 Sat by Pulse 100 100 100 Oximetry 07/23/21 07/23/21 07/23/21 10:41 10:51 11:00 Temperature Pulse Rate 84 84 84 Pulse Rate [ From Monitor] Respiratory 18 18 17 Rate Blood Pressure 129/78 129/78 132/73 O2 Sat by Pulse 100 100 Oximetry 07/23/21 07/23/21 11:52 12:38 Temperature Pulse Rate 76 Pulse Rate [ From Monitor] Respiratory 17 Rate Blood Pressure 132/73 O2 Sat by Pulse 100 100 Oximetry Constitutional: no acute distress, agitated Eyes: non-icteric ENT: oropharynx moist Neck: supple, no lymphadenopathy Effort: normal Ascultation: Bilateral: clear Cardiovascular: regular rate and rhythm, other (S1,S2) Gastrointestinal: normoactive bowel sounds, soft, non-tender Integumentary: normal Extremities: no cyanosis, no edema, pink and warm, pulses normal Neurologic: normal mental status, non-focal exam, pupils equal and round, motor strength normal and Psychiatric: mood appropriate, anxious CBC and BMP: 07/24/21 03:40 07/24/21 03:40 ABG, PT/INR, D-dimer: ABG ABG pH 7.399 pH Units (7.350-7.450) 07/23/21 04:42 ABG pCO2 41.2 mm Hg 07/23/21 04:42 ABG pO2 181.4 mm Hg (80.0-90.0) H 07/23/21 04:42 ABG O2 Saturation 99.1 % (95.0-99.0) H 07/23/21 04:42 PT/INR, D-dimer PT 13.0 Sec. (12.2-14.9) 07/22/21 02:45 INR 0.89 (0.87-1.13) 07/22/21 02:45 Abnormal lab findings: Abnormal Labs 07/22/21 07/22/21 07/22/21 02:45 02:45 02:45 RBC 5.43 H Hgb MCV 73 L MCH 23 L MCHC 31 L RDW 15.5 H [place] % (Auto) 7.9 H Lymphocytes % (Manual) ABG pH ABG pO2 ABG HCO3 ABG O2 Saturation ABG Base Excess ABG Hemoglobin Carbon Dioxide 16 L BUN Creatinine 1.5 H Lactic Acid Calcium Total Creatine Kinase Total Protein 8.3 H Salicylates < 0.3 L Acetaminophen Syphilis IgG/IgM Ab 07/22/21 07/22/21 07/22/21 02:45 02:45 02:45 RBC Hgb MCV MCH MCHC RDW [place] % (Auto) Lymphocytes % (Manual) ABG pH ABG pO2 ABG HCO3 ABG O2 Saturation ABG Base Excess ABG Hemoglobin Carbon Dioxide BUN Creatinine Lactic Acid 11.70 H* Calcium Total Creatine Kinase 843 H Total Protein Salicylates Acetaminophen 5.0 L Syphilis IgG/IgM Ab 07/22/21 07/22/21 07/22/21 02:45 03:00 03:09 RBC Hgb MCV MCH MCHC RDW [place] % (Auto) Lymphocytes % (Manual) ABG pH 7.301 L ABG pO2 458.9 H ABG HCO3 19.7 L ABG O2 Saturation 99.6 H ABG Base Excess -6.3 L ABG Hemoglobin 11.4 L Carbon Dioxide BUN Creatinine Lactic Acid Calcium Total Creatine Kinase Total Protein Salicylates Acetaminophen 5.0 L Syphilis IgG/IgM Ab Reactive A 07/23/21 07/23/21 07/23/21 04:00 04:00 04:42 RBC Hgb 11.1 L MCV 74 L MCH 22 L MCHC 31 L RDW 15.5 H [place] % (Auto) Lymphocytes % (Manual) 45.0 H ABG pH ABG pO2 181.4 H ABG HCO3 ABG O2 Saturation 99.1 H ABG Base Excess ABG Hemoglobin 10.6 L Carbon Dioxide BUN 5 L Creatinine Lactic Acid Calcium 8.3 L Total Creatine Kinase Total Protein Salicylates Acetaminophen Syphilis IgG/IgM Ab Chest x-ray: image reviewed Allied health notes reviewed: RT
--- NOTE | 2021-07-23 21:30 | Electrocardiograph Report ---
[facility] Test Date: 2021-07-22 Test Time: 08:21:38 Pat Name: OMARI DEGROOT Department: Room: A252 1 Gender: M Geriatric Nurse: ANAT : 1990 Requested By: TEREZA WOOTEN Order Number: [id number] Reading MD: Ragini Galo Measurements Intervals [employer] Rate: 88 P: 90 MO: 138 QRS: 74 QRSD: 95 T: 70 QT: 364 QTc: 440 Interpretive Statements Sinus rhythm Anteroseptal infarct, old No previous ECG available for comparison Electronically Signed On 07-23-2021 21:30:18 EDT by Ragini Galo
--- NOTE | 2021-07-24 03:52 | XRay Report ---
CHEST 1 VIEW INDICATION / CLINICAL INFORMATION: follow up respiratory failure. COMPARISON: Chest x-ray 07/23/2021 FINDINGS: SUPPORT DEVICES: None. HEART / MEDIASTINUM: No significant abnormality. LUNGS / PLEURA: No significant pulmonary abnormality. BONES: No significant osseous abnormality. ADDITIONAL FINDINGS: No significant additional findings. IMPRESSION: 1. No active cardiopulmonary disease. Interval removal of endotracheal tube and esophagogastric tube. Signer Name: Kyle Avila II, MD Signed: 07/24/2021 3:47 AM Workstation Name: [id number]
[2021-07-24] MEDS: cefTRIAXone/NS 2 GM/100 ML 2 GM/100 ML BAG IV SCH ×3 (04:04→16:27)
[2021-07-24 04:38] LABS: Hematocrit 34.4 % (35.5-45.6); Hemoglobin 10.8 gm/dl (11.8-15.2); Mean Corpuscular HGB Conc 31 % (32-34); Mean Corpuscular Volume 73 fl (84-94); Platelet Count 195 K/mm3 (140-440); Red Blood Count 4.73 M/mm3 (3.65-5.03); Red Cell Distribution Width 15.6 % (13.2-15.2)
[2021-07-24 04:53] LABS: BUN/Creatinine Ratio 6; Blood Urea Nitrogen 5 mg/dL (9-20); Hemolysis Index 0
[2021-07-24] MEDS: SODIUM CHLORIDE 0.9% IV SCH ×5 (05:39→21:26)
[2021-07-24] MEDS: ACYCLOVIR IV SCH ×5 (05:39→21:26)
[2021-07-24] MEDS: ACETAMINOPHEN 325 MG/10.15 ML ORAL LIQD UNIT DOSE FEEDTUBE PRN ×2 (05:40→11:05)
[2021-07-24] MEDS: VANCOMYCIN/NS 1 GM/250 ML 1 GM/250 ML BAG IV SCH ×2 (06:42→18:21)
[2021-07-24] MEDS ORDERED: POTASSIUM CHLORIDE ER 20 MEQ TAB PO SCH (08:00)
--- NOTE | 2021-07-24 08:45 | Progress Note ---
Assessment and Plan Acute hypoxic Respiratory Failure s/p MVS Polysubstance abuse disorder Fever with AMS h/o HIV Syphilis- Unclear if active vs Latent Lactic Acidosis/Metabolic Acidosis-resolved R/O Meningitis Acute Encephalopathy- Toxic vs Metabolic Acute Kidney Injury(NOAH) most likely vasomotor Nephropathy -Titrate supplemental oxygen to keep SpO2 89-92% -Monitoring renal function, hemodynamics and electrolyte profile -Replete electrolytes as clinically indicated -Accuchecks with glycemic control. target blood glucose 140-180 mg/dL. Avoid hypoglycemia -VTE prophylaxis- ambulate -Substance abuse counselling He is being seen by Psych service Can transfer out of the ICU Subjective Date of service: 07/24/21 Principal diagnosis: sepsis Interval history: This is a 31-year-old male with known past medical history of HIV/AIDS and seizures admitted fevers and AMS now on ventilatory support for airway protection Seen and examined. No adverse overnight events. Extubated yesterday and is doing well Discussed with respiratory and nursing staff. No fevers, no vomiting, no diarrhea Patient declines spinal tap Objective Vital Signs - 12hr 07/23/21 07/23/21 07/23/21 21:01 22:00 23:01 Temperature Pulse Rate 57 L 62 63 Respiratory 15 16 17 Rate Blood Pressure 148/87 146/83 121/71 O2 Sat by Pulse 100 100 100 Oximetry 07/23/21 07/23/21 07/24/21 23:19 23:31 00:00 Temperature 98 F Pulse Rate 59 L 55 L Respiratory 18 16 Rate Blood Pressure 121/71 144/87 O2 Sat by Pulse 100 100 Oximetry 07/24/21 07/24/21 07/24/21 01:00 02:00 03:00 Temperature Pulse Rate 77 55 L 56 L Respiratory 19 19 16 Rate Blood Pressure 125/65 113/64 132/79 O2 Sat by Pulse 100 100 100 Oximetry 07/24/21 07/24/21 07/24/21 04:00 05:01 06:01 Temperature 97.5 F L Pulse Rate 64 60 51 L Respiratory 20 12 8 L Rate Blood Pressure 136/85 131/94 145/85 O2 Sat by Pulse 100 100 100 Oximetry Constitutional: no acute distress, alert Eyes: non-icteric ENT: oropharynx moist Neck: supple, no lymphadenopathy Effort: normal Ascultation: Bilateral: clear Cardiovascular: regular rate and rhythm Gastrointestinal: normoactive bowel sounds, soft, non-tender Integumentary: normal Extremities: no cyanosis Neurologic: normal mental status, non-focal exam, pupils equal and round, CN II- XII normal, motor strength normal and Psychiatric: mood appropriate, affect normal CBC and BMP: 07/24/21 03:40 07/24/21 03:40 ABG, PT/INR, D-dimer: ABG ABG pH 7.399 pH Units (7.350-7.450) 07/23/21 04:42 ABG pCO2 41.2 mm Hg 07/23/21 04:42 ABG pO2 181.4 mm Hg (80.0-90.0) H 07/23/21 04:42 ABG O2 Saturation 99.1 % (95.0-99.0) H 07/23/21 04:42 PT/INR, D-dimer PT 13.0 Sec. (12.2-14.9) 07/22/21 02:45 INR 0.89 (0.87-1.13) 07/22/21 02:45 Abnormal lab findings: Abnormal Labs 07/22/21 07/22/21 07/22/21 02:45 02:45 02:45 WBC RBC 5.43 H Hgb Hct MCV 73 L MCH 23 L MCHC 31 L RDW 15.5 H [place] % (Auto) 7.9 H Lymphocytes % (Manual) ABG pH ABG pO2 ABG HCO3 ABG O2 Saturation ABG Base Excess ABG Hemoglobin Potassium Carbon Dioxide 16 L BUN Creatinine 1.5 H Glucose Lactic Acid Calcium Total Creatine Kinase Total Protein 8.3 H Salicylates < 0.3 L Acetaminophen Syphilis IgG/IgM Ab 07/22/21 07/22/21 07/22/21 02:45 02:45 02:45 WBC RBC Hgb Hct MCV MCH MCHC RDW [place] % (Auto) Lymphocytes % (Manual) ABG pH ABG pO2 ABG HCO3 ABG O2 Saturation ABG Base Excess ABG Hemoglobin Potassium Carbon Dioxide BUN Creatinine Glucose Lactic Acid 11.70 H* Calcium Total Creatine Kinase 843 H Total Protein Salicylates Acetaminophen 5.0 L Syphilis IgG/IgM Ab 07/22/21 07/22/21 07/22/21 02:45 03:00 03:09 WBC RBC Hgb Hct MCV MCH MCHC RDW [place] % (Auto) Lymphocytes % (Manual) ABG pH 7.301 L ABG pO2 458.9 H ABG HCO3 19.7 L ABG O2 Saturation 99.6 H ABG Base Excess -6.3 L ABG Hemoglobin 11.4 L Potassium Carbon Dioxide BUN Creatinine Glucose Lactic Acid Calcium Total Creatine Kinase Total Protein Salicylates Acetaminophen 5.0 L Syphilis IgG/IgM Ab Reactive A 07/23/21 07/23/21 07/23/21 04:00 04:00 04:42 WBC RBC Hgb 11.1 L Hct MCV 74 L MCH 22 L MCHC 31 L RDW 15.5 H [place] % (Auto) Lymphocytes % (Manual) 45.0 H ABG pH ABG pO2 181.4 H ABG HCO3 ABG O2 Saturation 99.1 H ABG Base Excess ABG Hemoglobin 10.6 L Potassium Carbon Dioxide BUN 5 L Creatinine Glucose Lactic Acid Calcium 8.3 L Total Creatine Kinase Total Protein Salicylates Acetaminophen Syphilis IgG/IgM Ab 07/24/21 07/24/21 03:40 03:40 WBC 4.3 L RBC Hgb 10.8 L Hct 34.4 L MCV 73 L MCH 23 L MCHC 31 L RDW 15.6 H [place] % (Auto) Lymphocytes % (Manual) ABG pH ABG pO2 ABG HCO3 ABG O2 Saturation ABG Base Excess ABG Hemoglobin Potassium 3.5 L D Carbon Dioxide BUN 5 L Creatinine Glucose 106 H Lactic Acid Calcium 8.0 L Total Creatine Kinase Total Protein Salicylates Acetaminophen Syphilis IgG/IgM Ab Allied health notes reviewed: nursing
[2021-07-24] MEDS: FAMOTIDINE 10 MG TAB PO SCH ×2 (09:13→21:26)
[2021-07-24] MEDS: HEPARIN 5,000 UNIT/1 ML VIAL SUB-Q SCH ×2 (09:13→21:26)
--- NOTE | 2021-07-24 12:23 | Progress Note ---
Subjective - Reason for Consult Consult date: 07/24/21 Reason for consult: mental health evaluation - Chief Complaint Chief complaint: The patient was seen this morning. The patient is calm alert and oriented x2. He is cooperative and engaging however slow to respond. He reports that " I thought I had a bug on me, I think my marijuana was laced." The patient states he only uses marijuana,he is unable to give details on the extent of his drug use. The p atient denies suicidal/homicidal ideation and denies hallucinations. PAST PSYCHIATRIC HISTORY: Diagnoses: Denies Suicide attempts or Self-harm behavior: Denies Prior psychiatric hospitalizations:Denies Substance Abuse history: Denies Previous psychiatric medications tried: Denies Outpatient treatment: Denies PAST MEDICAL HISTORY: None reported or document Family Psychiatric History: None reported or documented SOCIAL HISTORY Marital Status: Single Living Arrangements: Lives with mother Employment Status: Unemployed Access to guns/weapons: Denies Education:Some college History of Abuse:Denies Legal History: Denies REVIEW OF SYSTEMS Constitutional: Negative for weight loss ENT: Negative for stridor Respiratory: Negative for cough or hemoptysis All other systems reviewed and are negative MENTAL STATUS EXAMINATION General Appearance and Behavior: Age appropriate, wearing appropriate clothes, cooperative, polite with questioning, good eye contact Cooperation: cooperative Psychomotor Behavior: Psychomotor normal Mood:Calm Affect and affective range: congruent with stated mood Thought Process: Goal directed Thought Content: Reality oriented Speech: low Suicidal Ideation: Denies Homicidal Ideation: Denies Hallucination: Denies Delusions: None elicited Impulse Control: Limited Insight and Judgment: Limited Memory: limited Attention:attentive Orientation: Alert and oriented Diagnoses: Substance induced psychosis Treatment Plan Continue home meds. Medical: per primary Sitter: defer to primary Disposition: Do not Recommend acute psychiatric inpatient treatment. The ass essor will provide patient with psychiatric out patient resources. Will sign off. Thanks Case staffed with Dr. Galarza Medications and Allergies Mental Status Exam - Vital signs Last Vital Signs Temp 99 F 07/24/21 08:00 Pulse 60 07/24/21 10:00 Resp 16 07/24/21 11:05 BP 133/82 07/24/21 10:00 Pulse Ox 100 07/24/21 10:00
--- NOTE | 2021-07-24 13:15 | Progress Note ---
<SHERMANAKSHAT HDebbie - Last Filed: 07/24/21 13:10> Assessment and Plan Assessment and plan: Assessment and Plan This is a 31-year-old female with HIV/AIDS, seizures, current nicotine abuse admitted with acute metabolic encephalopathy, r/o meningitis and was intubated in the emergency department for airway protection Neuro: Acute metabolic encephalopathy, h/o seizures -s/p precedex, propofol gtt -prn haldol -Reorientation as needed -Maintain sleep-wake cycle -seizure precautions -As needed analgesia -CT head with no acute intracranial abnormality -Psych consulted, appreciate recommendations -Signed off, associated will provide patient with outpatient psychiatric resources -Patient stated to psych that he thinks his marijuana was laced which made him see bugs Cardiac: NAD -Blood pressure monitoring per protocol Respiratory: Acute Respiratory failure, current nicotine abuse -CCM consulted, appreciate recommendations -Intubated on 07/22 with 7.5 OETT at 24 lips and extubated 07/23 -[place]ulman[place] hygenie -SPO2 monitoring GI: NAD -24 hours +2712 -PPI -CLD->regular diet -BR: Senokot S : Acute kidney injury secondary to vasomotor nephropathy (resovled), Hypokalemia, rhabdomyolysis -Trend Intake and output -Renally dose medications -Avoid nephrotoxic medications -Replete K -Trend BMP ID: r/o neurosyphilis, severe sepsis (POA) -Presented with fever, tachycardia, altered mental status, lactic acidosis, elevated creatinine -Infectious disease consulted, appreciate recommendations -LP attempted in the emergency department without inability to obtain CSF -LP pending -Antibiotic therapy with vancomycin, ceftriaxone, acyclovir -Droplet precautions -f/u blood culture -Monitor WBC and temperature curve Endo: NAD -Avoid hypoglycemia Heme: Leukopenia -Trend CBC -Transfuse hemoglobin less than 7 -SCDs to BLE while in bed The high probability of a clinically significant, sudden or life threatening de terioration of the [multiple] system(s) required my full and direct attention, intervention and personal management. The aggregate critical care time was [60] minutes. This time is in addition to time spent performing reported procedures but includes the following: [x] Data Review and interpretation [x] Patient assessment and monitoring of vital signs [x] Documentation [x] Medication orders and management Disposition Plan: transfer to floor Total Time Spent with Patient (Minutes): 60 History Interval history: This is a 31-year-old female with HIV/AIDs, seizures, nicotine abuse who presents the emergency department with altered mental status and upper presentation was acutely psychotic on arrival to to emergency department, febrile to 101.4, tachycardic and diaphoretic and he was medicated with Benadryl, Ativan and Haldol and was placed on 1013 hold. Patient was eventually intubated to protect his airway and lumbar puncture was completed without inability to obtain CSF in the emergency department. Patient was admitted to the hospitalist service with acute metabolic encephalopathy, acute hypoxic respiratory failure, acute kidney injury to the ICU with consults to CCM, psychiatry and infectious disease. Hospital Course to Date: 07/22: Intubated and sedated. Fevers improved, VSS. FL lumbar puncture pending. D/w ID continue current empiric IV abx and antiviral for now. Trend lactic acid. Per CCM post SAT and SBT tomorrow if patient remains stable. 07/23: Failed SAT this am due to increase agitation. Remains stable on low vent setting, VSS. Will add precedex gtt in an attempt to wean off propofol gtt. Will attempt SAT /SBT again later on today if patient is appropriate, possible extubation today. Low grade fevers this am, WBCs wnr, continue current empiric IV Abx and antiviral. Possible FL lumbar puncture tomorrow. ID also on consult. 07/24: Patient is refusing lumbar puncture, patient will transfer to the floor. No acute events reported overnight. This morning patient was having visual hallucinations per RN. Hospitalist Physical - Constitutional Vitals: Temp Pulse Resp BP Pulse Ox 99 F 60 16 133/82 100 07/24/21 08:00 07/24/21 10:00 07/24/21 11:05 07/24/21 10:00 07/24/21 10:00 General appearance: Present: no acute distress, well-nourished, other (Intubated and sedated) - EENT Eyes: Present: PERRL, EOM intact ENT: hearing intact, clear oral mucosa, dentition normal - Neck Neck: Present: normal ROM - Respiratory Respiratory effort: normal Respiratory: bilateral: CTA - Cardiovascular Rhythm: regular Heart Sounds: Present: S1 & S2. Absent: systolic murmur, diastolic murmur - Extremities Extremities: no ischemia, pulses intact, pulses symmetrical, No edema, normal temperature, normal color Peripheral Pulses: within normal limits - Abdominal General gastrointestinal: soft, non-tender, non-distended, normal bowel sounds - Integumentary Integumentary: Present: warm, dry - Psychiatric Psychiatric: appropriate mood/affect, cooperative - Neurologic Neurologic: CNII-XII intact, no focal deficits, moves all extremities - Allied Health Allied health notes reviewed: nursing, RT, social work Results - Labs CBC & Chem 7: 07/24/21 03:40 07/24/21 03:40 Labs: Laboratory Last Values WBC 4.3 K/mm3 (4.5-11.0) L 07/24/21 03:40 RBC 4.73 M/mm3 (3.65-5.03) 07/24/21 03:40 Hgb 10.8 gm/dl (11.8-15.2) L 07/24/21 03:40 Hct 34.4 % (35.5-45.6) L 07/24/21 03:40 MCV 73 fl (84-94) L 07/24/21 03:40 MCH 23 pg (28-32) L 07/24/21 03:40 MCHC 31 % (32-34) L 07/24/21 03:40 RDW 15.6 % (13.2-15.2) H 07/24/21 03:40 Plt Count 195 K/mm3 (140-440) 07/24/21 03:40 Lymph % (Auto) 21.1 % (13.4-35.0) 07/22/21 02:45 Wilcox % (Auto) Drawing Instructor 07/23/21 04:00 Eos % (Auto) 0.8 % (0.0-4.3) 07/22/21 02:45 Baso % (Auto) 0.2 % (0.0-1.8) 07/22/21 02:45 Lymph # (Auto) 1.6 K/mm3 (1.2-5.4) 07/22/21 02:45 Wilcox # (Auto) 0.6 K/mm3 (0.0-0.8) 07/22/21 02:45 Eos # (Auto) 0.1 K/mm3 (0.0-0.4) 07/22/21 02:45 Baso # (Auto) 0.0 K/mm3 (0.0-0.1) 07/22/21 02:45 Add Manual Diff Complete 07/23/21 04:00 Total Counted 100 07/23/21 04:00 Seg Neutrophils % 70.0 % (40.0-70.0) 07/22/21 02:45 Seg Neuts % (Manual) 48.0 % (40.0-70.0) 07/23/21 04:00 Band Neutrophils % 0 % 07/23/21 04:00 Lymphocytes % (Manual) 45.0 % (13.4-35.0) H 07/23/21 04:00 Reactive Lymphs % (Man) 0 % 07/23/21 04:00 Monocytes % (Manual) 7.0 % (0.0-7.3) 07/23/21 04:00 Eosinophils % (Manual) 0 % (0.0-4.3) 07/23/21 04:00 Basophils % (Manual) 0 % (0.0-1.8) 07/23/21 04:00 Metamyelocytes % 0 % 07/23/21 04:00 Myelocytes % 0 % 07/23/21 04:00 Promyelocytes % 0 % 07/23/21 04:00 Blast Cells % 0 % 07/23/21 04:00 Nucleated RBC % Not Reportable 07/23/21 04:00 Seg Neutrophils # 5.3 K/mm3 (1.8-7.7) 07/22/21 02:45 Seg Neutrophils # Man 2.8 K/mm3 (1.8-7.7) 07/23/21 04:00 Band Neutrophils # 0.0 K/mm3 07/23/21 04:00 Lymphocytes # (Manual) 2.6 K/mm3 (1.2-5.4) 07/23/21 04:00 Abs React Lymphs (Man) 0.0 K/mm3 07/23/21 04:00 Monocytes # (Manual) 0.4 K/mm3 (0.0-0.8) 07/23/21 04:00 Eosinophils # (Manual) 0.0 K/mm3 (0.0-0.4) 07/23/21 04:00 Basophils # (Manual) 0.0 K/mm3 (0.0-0.1) 07/23/21 04:00 Metamyelocytes # 0.0 K/mm3 07/23/21 04:00 Myelocytes # 0.0 K/mm3 07/23/21 04:00 Promyelocytes # 0.0 K/mm3 07/23/21 04:00 Blast Cells # 0.0 K/mm3 07/23/21 04:00 WBC Morphology Not Reportable 07/23/21 04:00 Hypersegmented Neuts Not Reportable 07/23/21 04:00 Hyposegmented Neuts Not Reportable 07/23/21 04:00 Hypogranular Neuts Not Reportable 07/23/21 04:00 Smudge Cells Not Reportable 07/23/21 04:00 Toxic Granulation Not Reportable 07/23/21 04:00 Toxic Vacuolation Not Reportable 07/23/21 04:00 Dohle Bodies Not Reportable 07/23/21 04:00 Pelger-Huet Anomaly Not Reportable 07/23/21 04:00 Cortez Rods Not Reportable 07/23/21 04:00 Platelet Estimate Consistent w auto 07/23/21 04:00 Clumped Platelets Not Reportable 07/23/21 04:00 Plt Clumps, EDTA Not Reportable 07/23/21 04:00 Large Platelets Not Reportable 07/23/21 04:00 Giant Platelets Not Reportable 07/23/21 04:00 Platelet Satelliting Not Reportable 07/23/21 04:00 Plt Morphology Comment Not Reportable 07/23/21 04:00 RBC Morphology Not Reportable 07/23/21 04:00 Dimorphic RBCs Not Reportable 07/23/21 04:00 Polychromasia Not Reportable 07/23/21 04:00 Hypochromasia Not Reportable 07/23/21 04:00 Poikilocytosis Not Reportable 07/23/21 04:00 Anisocytosis 1+ 07/23/21 04:00 Microcytosis Not Reportable 07/23/21 04:00 Macrocytosis Not Reportable 07/23/21 04:00 Spherocytes Not Reportable 07/23/21 04:00 Pappenheimer Bodies Not Reportable 07/23/21 04:00 Sickle Cells Not Reportable 07/23/21 04:00 Target Cells Not Reportable 07/23/21 04:00 Tear Drop Cells Not Reportable 07/23/21 04:00 Ovalocytes Not Reportable 07/23/21 04:00 Helmet Cells Not Reportable 07/23/21 04:00 Torres-Everton Bodies Not Reportable 07/23/21 04:00 Bruner Rings Not Reportable 07/23/21 04:00 [place] Cells Not Reportable 07/23/21 04:00 Bite Cells Not Reportable 07/23/21 04:00 Crenated Cell Not Reportable 07/23/21 04:00 Elliptocytes Not Reportable 07/23/21 04:00 Acanthocytes (Spur) Not Reportable 07/23/21 04:00 Rouleaux Not Reportable 07/23/21 04:00 Hemoglobin C Crystals Not Reportable 07/23/21 04:00 Schistocytes Not Reportable 07/23/21 04:00 Malaria parasites Not Reportable 07/23/21 04:00 Gianfranco Bodies Not Reportable 07/23/21 04:00 Hem Pathologist Commnt No 07/23/21 04:00 PT 13.0 Sec. (12.2-14.9) 07/22/21 02:45 INR 0.89 (0.87-1.13) 07/22/21 02:45 APTT 25.8 Sec. (24.2-36.6) 07/22/21 02:45 ABG pH 7.399 pH Units (7.350-7.450) 07/23/21 04:42 ABG pCO2 41.2 mm Hg 07/23/21 04:42 ABG pO2 181.4 mm Hg (80.0-90.0) H 07/23/21 04:42 ABG HCO3 24.9 mmol/L (20.0-26.0) 07/23/21 04:42 ABG O2 Saturation 99.1 % (95.0-99.0) H 07/23/21 04:42 ABG O2 Content 14.9 (0.0-44) 07/23/21 04:42 ABG Base Excess 0.1 mmol/L (-2.0-3.0) 07/23/21 04:42 ABG Hemoglobin 10.6 gm/dl (14.0-18.0) L 07/23/21 04:42 ABG Carboxyhemoglobin 1.0 % (0.0-5.0) 07/23/21 04:42 ABG Methemoglobin 0.4 % (0.0-1.5) 07/23/21 04:42 Oxyhemoglobin 97.7 % (95.0-99.0) 07/23/21 04:42 FiO2 40 % 07/23/21 04:42 Sodium 139 mmol/L (137-145) 07/24/21 03:40 Potassium 3.5 mmol/L (3.6-5.0) L D 07/24/21 03:40 Chloride 104.3 mmol/L (98-107) 07/24/21 03:40 Carbon Dioxide 28 mmol/L (22-30) 07/24/21 03:40 Anion Gap 10 mmol/L 07/24/21 03:40 BUN 5 mg/dL (9-20) L 07/24/21 03:40 Creatinine 0.9 mg/dL (0.8-1.3) 07/24/21 03:40 Estimated GFR > 60 ml/min 07/24/21 03:40 BUN/Creatinine Ratio 6 % 07/24/21 03:40 Glucose 106 mg/dL (75-100) H 07/24/21 03:40 POC Glucose 101 mg/dL (70-105) 07/22/21 17:37 Lactic Acid 1.50 mmol/L (0.7-2.0) 07/22/21 09:00 Calcium 8.0 mg/dL (8.4-10.2) L 07/24/21 03:40 Total Bilirubin 0.50 mg/dL (0.1-1.2) 07/22/21 02:45 AST 29 units/L (5-40) 07/22/21 02:45 ALT 19 units/L (7-56) 07/22/21 02:45 Alkaline Phosphatase 67 units/L (35-129) 07/22/21 02:45 Total Creatine Kinase 843 units/L (55-170) H 07/22/21 02:45 Total Protein 8.3 g/dL (6.3-8.2) H 07/22/21 02:45 Albumin 4.3 g/dL (3.9-5) 07/22/21 02:45 Albumin/Globulin Ratio 1.1 % 07/22/21 02:45 TSH 3.360 mlU/mL (0.270-4.200) 07/22/21 02:45 Urine Color Yellow (Yellow) 07/22/21 Unknown Urine Turbidity Clear (Clear) 07/22/21 Unknown Urine pH 5.0 (5.0-7.0) 07/22/21 Unknown Ur Specific [place] 1.024 (1.003-1.030) 07/22/21 Unknown Urine Protein 30 mg/dl mg/dL (Negative) 07/22/21 Unknown Urine Glucose (UA) Neg mg/dL (Negative) 07/22/21 Unknown Urine Ketones Tr mg/dL (Negative) 07/22/21 Unknown Urine Blood Neg (Negative) 07/22/21 Unknown Urine Nitrite Neg (Negative) 07/22/21 Unknown Urine Bilirubin Neg (Negative) 07/22/21 Unknown Urine Urobilinogen 4.0 mg/dL (<2.0) 07/22/21 Unknown Ur Leukocyte Esterase Neg (Negative) 07/22/21 Unknown Urine WBC (Auto) 6.0 /HPF (0.0-6.0) 07/22/21 Unknown Urine RBC (Auto) 2.0 /HPF (0.0-6.0) 07/22/21 Unknown U Epithel Cells (Auto) < 1.0 /HPF (0-13.0) 07/22/21 Unknown Urine Bacteria (Auto) 1+ /HPF (Negative) 07/22/21 Unknown Urine Mucus Few /HPF 07/22/21 Unknown Salicylates < 0.3 mg/dL (2.8-20.0) L 07/22/21 02:45 Urine Opiates Screen Presumptive negative 07/22/21 Unknown Urine Methadone Screen Presumptive negative 07/22/21 Unknown Acetaminophen 5.0 ug/mL (10.0-30.0) L 07/22/21 03:00 Ur Barbiturates Screen Presumptive negative 07/22/21 Unknown Ur Phencyclidine Scrn Presumptive negative 07/22/21 Unknown Ur Amphetamines Screen Presumptive positive 07/22/21 Unknown U Benzodiazepines Scrn Presumptive negative 07/22/21 Unknown Urine Cocaine Screen Presumptive negative 07/22/21 Unknown U Marijuana (THC) Screen Presumptive positive 07/22/21 Unknown Drugs of Abuse Note Disclamer 07/22/21 Unknown Plasma/Serum Alcohol < 0.01 % (0-0.07) 07/22/21 02:45 Syphilis IgG/IgM Ab Reactive (NonReactive) A 07/22/21 02:45 RPR Titer 1:32 (1:1-1:2) 07/22/21 02:45 Coronavirus (PCR) Negative (Negative) 07/22/21 09:45 Microbiology: Microbiology 07/22/21 02:37 Peripheral/Venous Blood Culture - Preliminary NO GROWTH AFTER 48 HOURS 07/22/21 02:45 Peripheral/Venous Blood Culture - Preliminary NO GROWTH AFTER 48 HOURS 07/22/21 03:33 Tracheal Aspirate Sputum Culture - Preliminary Conrad/IV: Voiding Method Condom Catheter Active Medications - Current Medications Current Medications: Generic Name Dose Route Start Last Admin Trade Name Freq PRN Reason Stop Dose Admin Acetaminophen 650 mg 07/22/21 04:03 Acetaminophen 650 Mg Rect Supp [place] Q6H PRN Pain MILD(1-3)/Fever >100.5/ALBERT Acetaminophen 650 mg 07/22/21 13:40 07/24/21 11:05 Acetaminophen 325 Mg/10.15 Ml Oral Liqd Unit Dose FEEDTUBE 650 mg Q6H PRN Administration Pain, Mild (1-3) Famotidine 10 mg 07/23/21 10:00 07/24/21 09:13 Famotidine 10 Mg Tab PO 10 mg BID AMOS Administration Haloperidol Lactate 5 mg 07/22/21 02:01 07/22/21 02:10 Haloperidol Lactate 5 Mg/1 Ml Inj IM 5 mg Q6HR PRN Administration Agitation Heparin Sodium (Porcine) 5,000 unit 07/22/21 10:00 07/24/21 09:13 Heparin 5,000 Unit/1 Ml Vial SUB-Q 5,000 unit Q12HR AMOS Administration Sodium Chloride 1,000 mls @ 75 mls/hr 07/22/21 04:15 07/23/21 20:17 Nacl 0.9% 1000 Ml IV 75 mls/hr DIRECT AMOS Administration Ceftriaxone Sodium 2 gm in 100 mls @ 200 mls/hr 07/22/21 16:00 07/24/21 05:34 Rocephin/Ns 2 Gm/100 Ml IV Infused Q12H AMOS Infusion Protocol Vancomycin HCl 1 gm in 250 mls @ 166.667 mls/hr 07/22/21 19:00 07/24/21 06:42 Vancomycin/Ns 1 Gm/250 Ml IV 166.67 mls/hr Q12H AMOS Administration Acyclovir 690 mg/ Sodium 113.8 mls @ 100 mls/hr 07/22/21 14:00 07/24/21 07:14 Chloride IV Infused Q8HR AMOS Infusion Protocol Dexmedetomidine HCl 200 mcg/ 50 mls @ 3.43 mls/hr 07/23/21 11:00 Sodium Chloride IV TITRATE AMOS Protocol 0.2 MCG/KG/HR Ondansetron HCl 4 mg 07/22/21 04:03 Ondansetron 4 Mg/2 Ml Inj IV Q8H PRN Nausea And Vomiting Senna/Docusate Sodium 1 tab 07/24/21 22:00 Sennosides/Docusate Sodium 8.6/50 Mg Tab PO QHS AMOS Sodium Chloride 10 ml 07/22/21 10:00 07/24/21 09:13 Sodium Chloride 0.9% 10 Ml Flush Syringe IV 10 ml BID AMOS Administration Sodium Chloride 10 ml 07/22/21 04:03 Sodium Chloride 0.9% 10 Ml Flush Syringe IV PRN PRN LINE FLUSH Nutrition/Malnutrition Assess - Dietary Evaluation Nutrition/Malnutrition Findings: Nutrition Notes Start: 07/22/21 11:24 Freq: Status: Active Protocol: Document 07/24/21 12:28 JANUSZ (Rec: 07/24/21 12:53 JANUSZ [id number]) Nutrition Notes Initial or Follow up Brief Note Current Diagnosis Acute Kidney Injury,Sepsis, Respiratory Failure Other Pertinent Diagnosis HIV/AIDS, Syphilis, Encephalopathy, Polysubstance Abuse, ... Current Diet Clear Liquids Diet (since B ). Height 5 ft 10 in Weight 68.6 kg [place] Body Weight (kg) 75.45 BMI 21.7 Intake Prior to Admission Good Weight change and time frame Pt states being unsure if loss body weight [employer]. No body weight change reported in 3 days. Weight Status Appropriate Subjective/Other Information RD consult for routine F/U on dietary advancement. TF discontinued, diet advanced to PO, No reports available on Pt's PO intake of meals at the time, will assess at F/U. Pt extubated on 12 pm, Pt is on Nasal Cannula, O2 saturation @ 100%, according to Physical Assessment History notes, Bedside Swallow Screen passed on 07/13, according to Swallow Screen notes. Percent of energy/protein needs met: Prescribed Clear Liquids Diet provides for energy/protein needs (590 Kcal/16 g) during LOS. #1 Nutrition Diagnosis Inadequate oral intake Comments: TF discontinued, diet advanced to PO, No reports available on Pt's PO intake of meals at the time, will assess at F/U. Diagnosis Progress(for reassessment Resolved documentation) Is patient on ventilator? No Is Patient Ambulatory and/or Out of Bed No REE-([facility]-confined to bed) [phone] Calculation Used for Recommendations [facility] Additional Notes Protein: 0.8-1.2 g/Kg ABW; 55- 83 g/day. Fluids: 1 ml/Kcal, or as per MD. Nutrition Intervention Change Diet Order: Continue Clear Liquids Diet, advance to Full Liquids Diet as tolerated. Nutrition Support: Discontinued. Goal #1 Adjust the dietary intervention to better serve Pt's needs and clinical conditions during LOS. Follow-Up By: 07/31/21 Additional Comments Continue monitoring food tolerance, %PO intake of meals , and BM. <MARSHALL VELAZQUEZ E - Last Filed: 07/25/21 06:02> Assessment and Plan Assessment and plan: I saw and evaluated the patient. I agree with the findings and the plan of care as documented in the Nurse Practitioner's~note, with the following corrections and additions. Hospitalist Physical - Constitutional Vitals: Temp Pulse Resp BP Pulse Ox 97.8 F 73 14 121/73 96 07/25/21 03:02 07/25/21 05:00 07/25/21 05:00 07/25/21 05:00 07/25/21 05:00 Results - Labs CBC & Chem 7: 07/24/21 03:40 07/24/21 03:40 Labs: Laboratory Last Values WBC 4.3 K/mm3 (4.5-11.0) L 07/24/21 03:40 RBC 4.73 M/mm3 (3.65-5.03) 07/24/21 03:40 Hgb 10.8 gm/dl (11.8-15.2) L 07/24/21 03:40 Hct 34.4 % (35.5-45.6) L 07/24/21 03:40 MCV 73 fl (84-94) L 07/24/21 03:40 MCH 23 pg (28-32) L 07/24/21 03:40 MCHC 31 % (32-34) L 07/24/21 03:40 RDW 15.6 % (13.2-15.2) H 07/24/21 03:40 Plt Count 195 K/mm3 (140-440) 07/24/21 03:40 Lymph % (Auto) 21.1 % (13.4-35.0) 07/22/21 02:45 Wilcox % (Auto) Drawing Instructor 07/23/21 04:00 Eos % (Auto) 0.8 % (0.0-4.3) 07/22/21 02:45 Baso % (Auto) 0.2 % (0.0-1.8) 07/22/21 02:45 Lymph # (Auto) 1.6 K/mm3 (1.2-5.4) 07/22/21 02:45 Wilcox # (Auto) 0.6 K/mm3 (0.0-0.8) 07/22/21 02:45 Eos # (Auto) 0.1 K/mm3 (0.0-0.4) 07/22/21 02:45 Baso # (Auto) 0.0 K/mm3 (0.0-0.1) 07/22/21 02:45 Add Manual Diff Complete 07/23/21 04:00 Total Counted 100 07/23/21 04:00 Seg Neutrophils % 70.0 % (40.0-70.0) 07/22/21 02:45 Seg Neuts % (Manual) 48.0 % (40.0-70.0) 07/23/21 04:00 Band Neutrophils % 0 % 07/23/21 04:00 Lymphocytes % (Manual) 45.0 % (13.4-35.0) H 07/23/21 04:00 Reactive Lymphs % (Man) 0 % 07/23/21 04:00 Monocytes % (Manual) 7.0 % (0.0-7.3) 07/23/21 04:00 Eosinophils % (Manual) 0 % (0.0-4.3) 07/23/21 04:00 Basophils % (Manual) 0 % (0.0-1.8) 07/23/21 04:00 Metamyelocytes % 0 % 07/23/21 04:00 Myelocytes % 0 % 07/23/21 04:00 Promyelocytes % 0 % 07/23/21 04:00 Blast Cells % 0 % 07/23/21 04:00 Nucleated RBC % Not Reportable 07/23/21 04:00 Seg Neutrophils # 5.3 K/mm3 (1.8-7.7) 07/22/21 02:45 Seg Neutrophils # Man 2.8 K/mm3 (1.8-7.7) 07/23/21 04:00 Band Neutrophils # 0.0 K/mm3 07/23/21 04:00 Lymphocytes # (Manual) 2.6 K/mm3 (1.2-5.4) 07/23/21 04:00 Abs React Lymphs (Man) 0.0 K/mm3 07/23/21 04:00 Monocytes # (Manual) 0.4 K/mm3 (0.0-0.8) 07/23/21 04:00 Eosinophils # (Manual) 0.0 K/mm3 (0.0-0.4) 07/23/21 04:00 Basophils # (Manual) 0.0 K/mm3 (0.0-0.1) 07/23/21 04:00 Metamyelocytes # 0.0 K/mm3 07/23/21 04:00 Myelocytes # 0.0 K/mm3 07/23/21 04:00 Promyelocytes # 0.0 K/mm3 07/23/21 04:00 Blast Cells # 0.0 K/mm3 07/23/21 04:00 WBC Morphology Not Reportable 07/23/21 04:00 Hypersegmented Neuts Not Reportable 07/23/21 04:00 Hyposegmented Neuts Not Reportable 07/23/21 04:00 Hypogranular Neuts Not Reportable 07/23/21 04:00 Smudge Cells Not Reportable 07/23/21 04:00 Toxic Granulation Not Reportable 07/23/21 04:00 Toxic Vacuolation Not Reportable 07/23/21 04:00 Dohle Bodies Not Reportable 07/23/21 04:00 Pelger-Huet Anomaly Not Reportable 07/23/21 04:00 Cortez Rods Not Reportable 07/23/21 04:00 Platelet Estimate Consistent w auto 07/23/21 04:00 Clumped Platelets Not Reportable 07/23/21 04:00 Plt Clumps, EDTA Not Reportable 07/23/21 04:00 Large Platelets Not Reportable 07/23/21 04:00 Giant Platelets Not Reportable 07/23/21 04:00 Platelet Satelliting Not Reportable 07/23/21 04:00 Plt Morphology Comment Not Reportable 07/23/21 04:00 RBC Morphology Not Reportable 07/23/21 04:00 Dimorphic RBCs Not Reportable 07/23/21 04:00 Polychromasia Not Reportable 07/23/21 04:00 Hypochromasia Not Reportable 07/23/21 04:00 Poikilocytosis Not Reportable 07/23/21 04:00 Anisocytosis 1+ 07/23/21 04:00 Microcytosis Not Reportable 07/23/21 04:00 Macrocytosis Not Reportable 07/23/21 04:00 Spherocytes Not Reportable 07/23/21 04:00 Pappenheimer Bodies Not Reportable 07/23/21 04:00 Sickle Cells Not Reportable 07/23/21 04:00 Target Cells Not Reportable 07/23/21 04:00 Tear Drop Cells Not Reportable 07/23/21 04:00 Ovalocytes Not Reportable 07/23/21 04:00 Helmet Cells Not Reportable 07/23/21 04:00 Torres-Everton Bodies Not Reportable 07/23/21 04:00 Bruner Rings Not Reportable 07/23/21 04:00 [place] Cells Not Reportable 07/23/21 04:00 Bite Cells Not Reportable 07/23/21 04:00 Crenated Cell Not Reportable 07/23/21 04:00 Elliptocytes Not Reportable 07/23/21 04:00 Acanthocytes (Spur) Not Reportable 07/23/21 04:00 Rouleaux Not Reportable 07/23/21 04:00 Hemoglobin C Crystals Not Reportable 07/23/21 04:00 Schistocytes Not Reportable 07/23/21 04:00 Malaria parasites Not Reportable 07/23/21 04:00 Gianfranco Bodies Not Reportable 07/23/21 04:00 Hem Pathologist Commnt No 07/23/21 04:00 PT 13.0 Sec. (12.2-14.9) 07/22/21 02:45 INR 0.89 (0.87-1.13) 07/22/21 02:45 APTT 25.8 Sec. (24.2-36.6) 07/22/21 02:45 ABG pH 7.399 pH Units (7.350-7.450) 07/23/21 04:42 ABG pCO2 41.2 mm Hg 07/23/21 04:42 ABG pO2 181.4 mm Hg (80.0-90.0) H 07/23/21 04:42 ABG HCO3 24.9 mmol/L (20.0-26.0) 07/23/21 04:42 ABG O2 Saturation 99.1 % (95.0-99.0) H 07/23/21 04:42 ABG O2 Content 14.9 (0.0-44) 07/23/21 04:42 ABG Base Excess 0.1 mmol/L (-2.0-3.0) 07/23/21 04:42 ABG Hemoglobin 10.6 gm/dl (14.0-18.0) L 07/23/21 04:42 ABG Carboxyhemoglobin 1.0 % (0.0-5.0) 07/23/21 04:42 ABG Methemoglobin 0.4 % (0.0-1.5) 07/23/21 04:42 Oxyhemoglobin 97.7 % (95.0-99.0) 07/23/21 04:42 FiO2 40 % 07/23/21 04:42 Sodium 139 mmol/L (137-145) 07/24/21 03:40 Potassium 3.5 mmol/L (3.6-5.0) L D 07/24/21 03:40 Chloride 104.3 mmol/L (98-107) 07/24/21 03:40 Carbon Dioxide 28 mmol/L (22-30) 07/24/21 03:40 Anion Gap 10 mmol/L 07/24/21 03:40 BUN 5 mg/dL (9-20) L 07/24/21 03:40 Creatinine 0.9 mg/dL (0.8-1.3) 07/24/21 03:40 Estimated GFR > 60 ml/min 07/24/21 03:40 BUN/Creatinine Ratio 6 % 07/24/21 03:40 Glucose 106 mg/dL (75-100) H 07/24/21 03:40 POC Glucose 101 mg/dL (70-105) 07/22/21 17:37 Lactic Acid 1.50 mmol/L (0.7-2.0) 07/22/21 09:00 Calcium 8.0 mg/dL (8.4-10.2) L 07/24/21 03:40 Total Bilirubin 0.50 mg/dL (0.1-1.2) 07/22/21 02:45 AST 29 units/L (5-40) 07/22/21 02:45 ALT 19 units/L (7-56) 07/22/21 02:45 Alkaline Phosphatase 67 units/L (35-129) 07/22/21 02:45 Total Creatine Kinase 843 units/L (55-170) H 07/22/21 02:45 Total Protein 8.3 g/dL (6.3-8.2) H 07/22/21 02:45 Albumin 4.3 g/dL (3.9-5) 07/22/21 02:45 Albumin/Globulin Ratio 1.1 % 07/22/21 02:45 TSH 3.360 mlU/mL (0.270-4.200) 07/22/21 02:45 Urine Color Yellow (Yellow) 07/22/21 Unknown Urine Turbidity Clear (Clear) 07/22/21 Unknown Urine pH 5.0 (5.0-7.0) 07/22/21 Unknown Ur Specific [place] 1.024 (1.003-1.030) 07/22/21 Unknown Urine Protein 30 mg/dl mg/dL (Negative) 07/22/21 Unknown Urine Glucose (UA) Neg mg/dL (Negative) 07/22/21 Unknown Urine Ketones Tr mg/dL (Negative) 07/22/21 Unknown Urine Blood Neg (Negative) 07/22/21 Unknown Urine Nitrite Neg (Negative) 07/22/21 Unknown Urine Bilirubin Neg (Negative) 07/22/21 Unknown Urine Urobilinogen 4.0 mg/dL (<2.0) 07/22/21 Unknown Ur Leukocyte Esterase Neg (Negative) 07/22/21 Unknown Urine WBC (Auto) 6.0 /HPF (0.0-6.0) 07/22/21 Unknown Urine RBC (Auto) 2.0 /HPF (0.0-6.0) 07/22/21 Unknown U Epithel Cells (Auto) < 1.0 /HPF (0-13.0) 07/22/21 Unknown Urine Bacteria (Auto) 1+ /HPF (Negative) 07/22/21 Unknown Urine Mucus Few /HPF 07/22/21 Unknown Vancomycin Trough 8.2 ug/mL (5.0-20.0) 07/24/21 18:18 Salicylates < 0.3 mg/dL (2.8-20.0) L 07/22/21 02:45 Urine Opiates Screen Presumptive negative 07/22/21 Unknown Urine Methadone Screen Presumptive negative 07/22/21 Unknown Acetaminophen 5.0 ug/mL (10.0-30.0) L 07/22/21 03:00 Ur Barbiturates Screen Presumptive negative 07/22/21 Unknown Ur Phencyclidine Scrn Presumptive negative 07/22/21 Unknown Ur Amphetamines Screen Presumptive positive 07/22/21 Unknown U Benzodiazepines Scrn Presumptive negative 07/22/21 Unknown Urine Cocaine Screen Presumptive negative 07/22/21 Unknown U Marijuana (THC) Screen Presumptive positive 07/22/21 Unknown Drugs of Abuse Note Disclamer 07/22/21 Unknown Plasma/Serum Alcohol < 0.01 % (0-0.07) 07/22/21 02:45 Syphilis IgG/IgM Ab Reactive (NonReactive) A 07/22/21 02:45 RPR Titer 1:32 (1:1-1:2) 07/22/21 02:45 Coronavirus (PCR) Negative (Negative) 07/22/21 09:45 Microbiology: Microbiology 07/22/21 02:37 Peripheral/Venous Blood Culture - Preliminary NO GROWTH AFTER 72 HOURS 07/22/21 02:45 Peripheral/Venous Blood Culture - Preliminary NO GROWTH AFTER 72 HOURS 07/22/21 03:33 Tracheal Aspirate Sputum Culture - Final Conrad/IV: Voiding Method Toilet Active Medications - Current Medications Current Medications: Generic Name Dose Route Start Last Admin Trade Name Freq PRN Reason Stop Dose Admin Acetaminophen 650 mg 07/22/21 04:03 Acetaminophen 650 Mg Rect Supp [place] Q6H PRN Pain MILD(1-3)/Fever >100.5/ALBERT Acetaminophen 650 mg 07/22/21 13:40 07/25/21 00:22 Acetaminophen 325 Mg/10.15 Ml Oral Liqd Unit Dose FEEDTUBE 650 mg Q6H PRN Administration Pain, Mild (1-3) Famotidine 10 mg 07/23/21 10:00 07/24/21 21:26 Famotidine 10 Mg Tab PO 10 mg BID AMOS Administration Haloperidol Lactate 5 mg 07/22/21 02:01 07/22/21 02:10 Haloperidol Lactate 5 Mg/1 Ml Inj IM 5 mg Q6HR PRN Administration Agitation Heparin Sodium (Porcine) 5,000 unit 07/22/21 10:00 07/24/21 21:26 Heparin 5,000 Unit/1 Ml Vial SUB-Q 5,000 unit Q12HR AMOS Administration Ceftriaxone Sodium 2 gm in 100 mls @ 200 mls/hr 07/22/21 16:00 07/25/21 03:00 Rocephin/Ns 2 Gm/100 Ml IV 200 mls/hr Q12H AMOS Administration Protocol Vancomycin HCl 1 gm in 250 mls @ 166.667 mls/hr 07/22/21 19:00 07/24/21 20:00 Vancomycin/Ns 1 Gm/250 Ml IV Infused Q12H AMOS Infusion Acyclovir 690 mg/ Sodium 113.8 mls @ 100 mls/hr 07/22/21 14:00 07/25/21 05:07 Chloride IV 100 mls/hr Q8HR AMOS Administration Protocol Ondansetron HCl 4 mg 07/22/21 04:03 Ondansetron 4 Mg/2 Ml Inj IV Q8H PRN Nausea And Vomiting Senna/Docusate Sodium 1 tab 07/24/21 22:00 07/24/21 21:27 Sennosides/Docusate Sodium 8.6/50 Mg Tab PO Not Given QHS MAOS Sodium Chloride 10 ml 07/22/21 10:00 07/24/21 21:26 Sodium Chloride 0.9% 10 Ml Flush Syringe IV 10 ml BID AMOS Administration Sodium Chloride 10 ml 07/22/21 04:03 Sodium Chloride 0.9% 10 Ml Flush Syringe IV PRN PRN LINE FLUSH Nutrition/Malnutrition Assess - Dietary Evaluation Nutrition/Malnutrition Findings: Nutrition Notes Start: 07/22/21 11:24 Freq: Status: Active Protocol: Document 07/24/21 12:28 JANUSZ (Rec: 07/24/21 12:53 JANUSZ [id number]) Nutrition Notes Initial or Follow up Brief Note Current Diagnosis Acute Kidney Injury,Sepsis, Respiratory Failure Other Pertinent Diagnosis HIV/AIDS, Syphilis, Encephalopathy, Polysubstance Abuse, ... Current Diet Clear Liquids Diet (since B ). Height 5 ft 10 in Weight 68.6 kg [place] Body Weight (kg) 75.45 BMI 21.7 Intake Prior to Admission Good Weight change and time frame Pt states being unsure if loss body weight [employer]. No body weight change reported in 3 days. Weight Status Appropriate Subjective/Other Information RD consult for routine F/U on dietary advancement. TF discontinued, diet advanced to PO, No reports available on Pt's PO intake of meals at the time, will assess at F/U. Pt extubated on 07/23 pm, Pt is on Nasal Cannula, O2 saturation @ 100%, according to Physical Assessment History notes, Bedside Swallow Screen passed on 07/13, according to Swallow Screen notes. Percent of energy/protein needs met: Prescribed Clear Liquids Diet provides for energy/protein needs (590 Kcal/16 g) during LOS. #1 Nutrition Diagnosis Inadequate oral intake Comments: TF discontinued, diet advanced to PO, No reports available on Pt's PO intake of meals at the time, will assess at F/U. Diagnosis Progress(for reassessment Resolved documentation) Is patient on ventilator? No Is Patient Ambulatory and/or Out of Bed No REE-([place]-St. Jeor-confined to bed) [phone] Calculation Used for Recommendations [place]-St Jeor Additional Notes Protein: 0.8-1.2 g/Kg ABW; 55- 83 g/day. Fluids: 1 ml/Kcal, or as per MD. Nutrition Intervention Change Diet Order: Continue Clear Liquids Diet, advance to Full Liquids Diet as tolerated. Nutrition Support: Discontinued. Goal #1 Adjust the dietary intervention to better serve Pt's needs and clinical conditions during LOS. Follow-Up By: 07/31/21 Additional Comments Continue monitoring food tolerance, %PO intake of meals , and BM.
--- NOTE | 2021-07-24 14:50 | Consultation ---
History of Present Illness - Reason for Consult Consult date: 07/24/21 - History of Present Illness 32-year-old male with history of HIV infection, unknown details, brought to the ED due to altered mental status. In the ED patient was delirious and febrile. Patient was intubated for airway protection. On arrival, temperature 101.4, HR 156, RR 50, O2 sat 97, BP 114/78. Initial WBC 7.6. Hemoglobin 12.4. Platelets 245. Lactate 11. Creatinine 1.4. Urinalysis unremarkable. Urine drug screen positive for marijuana and amphetamines. RPR reactive 1:32. SARS-CoV-[address] of the head unremarkable. Chest x-ray unremarkable. ED attempted lumbar puncture however not successful. Past History Past Medical History: HIV/AIDS, seizures Past Surgical History: No surgical history Social history: smoking (Current daily smoker), other (Uses Marijuana) Family history: no significant family history Medications and Allergies Allergies Allergy/AdvReac Type Severity Reaction Status Date / Time No Known Allergies Allergy Verified 08/08/13 03:03 Home Medications Medication Instructions Recorded Confirmed Last Taken Type Emtricita/Rilpivirine/Tenof Df 1 tab PO DAILY 08/28/15 08/28/15 Unknown History [Complera Tablet] Sulfamethoxazole/Trimethoprim 1 each PO BID #14 tablet 08/28/15 Unknown Rx [Bactrim DS TAB] Azithromycin [Zithromax Z-LUKE] 250 mg PO DAILY #6 tab 03/06/16 Unknown Rx guaiFENesin/CODEINE [Robitussin AC] 10 ml PO QHS #70 oral.liqd 03/06/16 Unknown Rx Ibuprofen [Motrin] 600 mg PO Q8H PRN #30 tablet 07/08/16 Unknown Rx Neomycn/Bacitrc/Polymyx/Pramox 28 gm TP BID #1 oint...g. 07/08/16 Unknown Rx [Triple Antibioti-Pain Rlf Oint] cephALEXin [Keflex] 500 mg PO Q12HR #10 cap 07/08/16 Unknown Rx Active Meds: Active Medications Acetaminophen (Acetaminophen 650 Mg Rect Supp) 650 mg [place] Q6H PRN PRN Reason: Pain MILD(1-3)/Fever >100.5/ALBERT Acetaminophen (Acetaminophen 325 Mg/10.15 Ml Oral Liqd Unit Dose) 650 mg FEEDTUBE Q6H PRN PRN Reason: Pain, Mild (1-3) Last Admin: 07/24/21 11:05 Dose: 650 mg Famotidine (Famotidine 10 Mg Tab) 10 mg PO BID [facility] Last Admin: 07/24/21 09:13 Dose: 10 mg Haloperidol Lactate (Haloperidol Lactate 5 Mg/1 Ml Inj) 5 mg IM Q6HR PRN PRN Reason: Agitation Last Admin: 07/22/21 02:10 Dose: 5 mg Heparin Sodium (Porcine) (Heparin 5,000 Unit/1 Ml Vial) 5,000 unit SUB-Q Q12HR AMOS Last Admin: 07/24/21 09:13 Dose: 5,000 unit Sodium Chloride (Nacl 0.9% 1000 Ml) 1,000 mls @ 75 mls/hr IV DIRECT [facility] Last Admin: 07/23/21 20:17 Dose: 75 mls/hr Ceftriaxone Sodium (Rocephin/Ns 2 Gm/100 Ml) 2 gm in 100 mls @ 200 mls/hr IV Q12H [facility]; Protocol Last Infusion: 07/24/21 05:34 Dose: Infused Vancomycin HCl (Vancomycin/Ns 1 Gm/250 Ml) 1 gm in 250 mls @ 166.667 mls/hr IV Q12H [facility] Last Admin: 07/24/21 06:42 Dose: 166.67 mls/hr Acyclovir 690 mg/ Sodium (Chloride) 113.8 mls @ 100 mls/hr IV Q8HR [facility]; Protocol Last Infusion: 07/24/21 07:14 Dose: Infused Dexmedetomidine HCl 200 mcg/ (Sodium Chloride) 50 mls @ 3.43 mls/hr IV TITRATE [facility]; Protocol Ondansetron HCl (Ondansetron 4 Mg/2 Ml Inj) 4 mg IV Q8H PRN PRN Reason: Nausea And Vomiting Senna/Docusate Sodium (Sennosides/Docusate Sodium 8.6/50 Mg Tab) 1 tab PO QHS AMOS Sodium Chloride (Sodium Chloride 0.9% 10 Ml Flush Syringe) 10 ml IV BID [facility] Last Admin: 07/24/21 09:13 Dose: 10 ml Sodium Chloride (Sodium Chloride 0.9% 10 Ml Flush Syringe) 10 ml IV PRN PRN PRN Reason: LINE FLUSH Physical Examination - Physical Exam Narrative exam: Physical Exam: Constitutional: Alert, cooperative. No acute distress Head, Ears, Nose: Normocephalic, atraumatic. External ears, nose normal Eyes: Conjunctivae/corneas clear. No icterus. No ptosis. Neck: Supple, no meningeal signs Oral: dentition fair, no thrush Cardiovascular: S1, S2 normal. Respiratory: Good air entry, clear to auscultation bilaterally GI: Soft, non-tender; bowel sounds normal. No peritoneal signs. Musculoskeletal: No pedal edema, no cyanosis. Skin: No rash or abscess Hem/Lymphatic: No palpable cervical or supraclavicular nodes. No lymphangitis Psych: Mood ok. Affect normal Neurological: Awake, alert, oriented. No gross abnormality - Constitutional Vitals: Vital Signs Temp Pulse Resp BP Pulse Ox 99 F 60 16 133/82 100 07/24/21 08:00 07/24/21 10:00 07/24/21 11:05 07/24/21 10:00 07/24/21 10:00 Temperature -Last 24 Hours Temperature 99 F Temperature 97.5 F Temperature 98 F Temperature 99 F Temperature 99 F Results - Labs CBC & Chem 7: 07/24/21 03:40 07/24/21 03:40 Labs: Abnormal lab results 07/24/21 07/24/21 Range/Units 03:40 03:40 WBC 4.3 L (4.5-11.0) K/mm3 Hgb 10.8 L (11.8-15.2) gm/dl Hct 34.4 L (35.5-45.6) % MCV 73 L (84-94) fl MCH 23 L (28-32) pg MCHC 31 L (32-34) % RDW 15.6 H (13.2-15.2) % Potassium 3.5 L D (3.6-5.0) mmol/L BUN 5 L (9-20) mg/dL Glucose 106 H (75-100) mg/dL Calcium 8.0 L (8.4-10.2) mg/dL Assessment and Plan Assessment/Plan: #Severe sepsis: Present admission with fever, tachycardia, altered mental status, elevated lactate, elevated creatinine; of unclear etiology, suspect acute meningitis/drug intoxication/neurosyphilis. Blood culture no growth so far. Urinalysis unremarkable. Chest x-ray unremarkable. CT head unremarkable. #NOAH: Likely due to 1. Improving. #Syphilis: Rule out neurosyphilis Recommendations: Obtain fluoroscopy guided lumbar puncture, send CSF for cell count, differential, glucose, protein, cryptococcal antigen, HSV 1/2 PCR, VDRL -patient is reportedly refusing, recommendations remain to obtain Obtain HIV viral load and CD4 Obtain cryptococcal serum antigen Continue vancomycin with PK consult Continue ceftriaxone 2 g IV every 12 hours Continue acyclovir 10 mg/kg IV q 8 hour If mentation not better consider brain MRI when stable Full consultation to follow tomorrow MD [facility] O: [phone] F: [phone]
[2021-07-24] MEDS: SENNOSIDES/DOCUSATE SODIUM 8.6/50 MG TAB PO SCH (21:27)
[2021-07-25] MEDS: ACETAMINOPHEN 325 MG/10.15 ML ORAL LIQD UNIT DOSE FEEDTUBE PRN (00:22)
[2021-07-25] MEDS: cefTRIAXone/NS 2 GM/100 ML 2 GM/100 ML BAG IV SCH ×2 (03:00→17:52)
[2021-07-25] MEDS: SODIUM CHLORIDE 0.9% IV SCH ×3 (05:07→22:37)
[2021-07-25] MEDS: ACYCLOVIR IV SCH ×3 (05:07→22:37)
[2021-07-25] MEDS: VANCOMYCIN/NS 1 GM/250 ML 1 GM/250 ML BAG IV SCH (06:18)
[2021-07-25] MEDS: ACETAMINOPHEN 325 MG TAB PO PRN ×2 (09:19→19:02)
[2021-07-25] MEDS: FAMOTIDINE 10 MG TAB PO SCH ×2 (09:19→22:08)
[2021-07-25] MEDS: NICOTINE 14 MG/24 HR PATCH TD SCH (09:19)
[2021-07-25] MEDS: SODIUM CHLORIDE 0.9% 1000 ML 1,000 ML IV SCH (09:20)
[2021-07-25 09:57] LABS: Hemoglobin 11.5 gm/dl (11.8-15.2); Mean Corpuscular HGB Conc 32 % (32-34); Mean Corpuscular Volume 72 fl (84-94); Platelet Count 213 K/mm3 (140-440); Red Cell Distribution Width 15.4 % (13.2-15.2)
[2021-07-25 10:19] LABS: BUN/Creatinine Ratio 6; Blood Urea Nitrogen 5 mg/dL (9-20); Calcium 8.2 mg/dL (8.4-10.2); Hemolysis Index 2
--- NOTE | 2021-07-25 11:02 | Progress Note ---
Assessment and Plan Assessment and plan: Assessment and Plan This is a 31-year-old female with HIV/AIDS, seizures, current nicotine abuse admitted with acute metabolic encephalopathy, r/o meningitis and was intubated in the emergency department for airway protection Neuro: Acute metabolic encephalopathy, h/o seizures (takes no medications), methamphetamine and ETOH abuse -s/p precedex, propofol gtt -prn haldol -Reorientation as needed -Maintain sleep-wake cycle -seizure precautions -As needed analgesia -CT head with no acute intracranial abnormality -Psych consulted, appreciate recommendations -Signed off, associated will provide patient with outpatient psychiatric resources -Patient stated to psych that he thinks his marijuana was laced which made him see bugs -UDS (+) for meth and marijuana Cardiac: NAD -Blood pressure monitoring per protocol Respiratory: Acute Respiratory failure, current nicotine abuse -CCM consulted, appreciate recommendations -Intubated on 07/22 with 7.5 OETT at 24 lips and extubated 07/23 -Pulmonary hygenie -SPO2 monitoring GI: NAD -24 hours +1320 -PPI -Regular diet -BR: Senokot S : Acute kidney injury secondary to vasomotor nephropathy (resolved), Hypokalemia (resolved), rhabdomyolysis -Trend Intake and output -Renally dose medications -Avoid nephrotoxic medications -Trend BMP ID: r/o neurosyphilis, severe sepsis (POA), h/o HIV/AIDs and syphilis -Presented with fever, tachycardia, altered mental status, lactic acidosis, elevated creatinine -Infectious disease consulted, appreciate recommendations -LP attempted in the emergency department without inability to obtain CSF -LP pending -patient agreeable to procedure -Antibiotic therapy with vancomycin, ceftriaxone, acyclovir -Droplet precautions -f/u blood culture -Monitor WBC and temperature curve Endo: NAD -Avoid hypoglycemia Heme: Leukopenia -Trend CBC -Transfuse hemoglobin less than 7 -SCDs to BLE while in bed The high probability of a clinically significant, sudden or life threatening deterioration of the [multiple] system(s) required my full and direct attention, intervention and personal management. The aggregate critical care time was [60] minutes. This time is in addition to time spent performing reported procedures but includes the following: [x] Data Review and interpretation [x] Patient assessment and monitoring of vital signs [x] Documentation [x] Medication orders and management Disposition Plan: transfer to floor Total Time Spent with Patient (Minutes): 60 History Interval history: This is a 31-year-old female with HIV/AIDs, seizures, nicotine abuse who presents the emergency department with altered mental status and upper presentation was acutely psychotic on arrival to to emergency department, febrile to 101.4, tachycardic and diaphoretic and he was medicated with Benadryl, Ativan and Haldol and was placed on 1013 hold. Patient was eventually intubated to protect his airway and lumbar puncture was completed without inability to obtain CSF in the emergency department. Patient was admitted to the hospitalist service with acute metabolic encephalopathy, acute hypoxic respiratory failure, acute kidney injury to the ICU with consults to CCM, psychiatry and infectious disease. Hospital Course to Date: 07/22: Intubated and sedated. Fevers improved, VSS. FL lumbar puncture pending. D/w ID continue current empiric IV abx and antiviral for now. Trend lactic acid. Per CCM post SAT and SBT tomorrow if patient remains stable. 07/23: Failed SAT this am due to increase agitation. Remains stable on low vent setting, VSS. Will add precedex gtt in an attempt to wean off propofol gtt. Will attempt SAT /SBT again later on today if patient is appropriate, possible extubation today. Low grade fevers this am, WBCs wnr, continue current empiric IV Abx and antiviral. Possible FL lumbar puncture tomorrow. ID also on consult. 07/24: Patient is refusing lumbar puncture, patient will transfer to the floor. No acute events reported overnight. 07/25: This morning patient refused his labs and stated he was not aware of anything that is going on despite being updated by me yesterday. Patient updated at bedside today by me and RN. Patient wanted to his "options." Patient later agreed to LP and procedure labs reordered. IR updated by RN. Hospitalist Physical - Constitutional Vitals: Temp Pulse Resp BP Pulse Ox 97.8 F 81 17 151/95 100 07/25/21 03:02 07/25/21 10:00 07/25/21 10:00 07/25/21 10:07/25/21 10:00 General appearance: Present: no acute distress, well-nourished, other (Intubated and sedated) - EENT Eyes: Present: PERRL, EOM intact ENT: hearing intact, clear oral mucosa, dentition normal - Neck Neck: Present: normal ROM - Respiratory Respiratory effort: normal Respiratory: bilateral: CTA - Cardiovascular Rhythm: regular Heart Sounds: Present: S1 & S2. Absent: systolic murmur, diastolic murmur - Extremities Extremities: no ischemia, pulses intact, pulses symmetrical, No edema, normal temperature, normal color, Full ROM Peripheral Pulses: within normal limits - Abdominal General gastrointestinal: soft, non-tender, normal bowel sounds - Integumentary Integumentary: Present: warm, dry - Psychiatric Psychiatric: appropriate mood/affect, memory intact, cooperative - Neurologic Neurologic: CNII-XII intact, no focal deficits, moves all extremities - Allied Health Allied health notes reviewed: nursing, social work Results - Labs CBC & Chem 7: 07/25/21 09:12 07/25/21 09:12 Labs: Laboratory Last Values WBC 3.0 K/mm3 (4.5-11.0) L 07/25/21 09:12 RBC 5.00 M/mm3 (3.65-5.03) 07/25/21 09:12 Hgb 11.5 gm/dl (11.8-15.2) L 07/25/21 09:12 Hct 36.0 % (35.5-45.6) 07/25/21 09:12 MCV 72 fl (84-94) L 07/25/21 09:12 MCH 23 pg (28-32) L 07/25/21 09:12 MCHC 32 % (32-34) 07/25/21 09:12 RDW 15.4 % (13.2-15.2) H 07/25/21 09:12 Plt Count 213 K/mm3 (140-440) 07/25/21 09:12 Lymph % (Auto) 21.1 % (13.4-35.0) 07/22/21 02:45 Saline % (Auto) Referral Coordinator 07/23/21 04:00 Eos % (Auto) 0.8 % (0.0-4.3) 07/22/21 02:45 Baso % (Auto) 0.2 % (0.0-1.8) 07/22/21 02:45 Lymph # (Auto) 1.6 K/mm3 (1.2-5.4) 07/22/21 02:45 Saline # (Auto) 0.6 K/mm3 (0.0-0.8) 07/22/21 02:45 Eos # (Auto) 0.1 K/mm3 (0.0-0.4) 07/22/21 02:45 Baso # (Auto) 0.0 K/mm3 (0.0-0.1) 07/22/21 02:45 Add Manual Diff Complete 07/23/21 04:00 Total Counted 100 07/23/21 04:00 Seg Neutrophils % 70.0 % (40.0-70.0) 07/22/21 02:45 Seg Neuts % (Manual) 48.0 % (40.0-70.0) 07/23/21 04:00 Band Neutrophils % 0 % 07/23/21 04:00 Lymphocytes % (Manual) 45.0 % (13.4-35.0) H 07/23/21 04:00 Reactive Lymphs % (Man) 0 % 07/23/21 04:00 Monocytes % (Manual) 7.0 % (0.0-7.3) 07/23/21 04:00 Eosinophils % (Manual) 0 % (0.0-4.3) 07/23/21 04:00 Basophils % (Manual) 0 % (0.0-1.8) 07/23/21 04:00 Metamyelocytes % 0 % 07/23/21 04:00 Myelocytes % 0 % 07/23/21 04:00 Promyelocytes % 0 % 07/23/21 04:00 Blast Cells % 0 % 07/23/21 04:00 Nucleated RBC % Not Reportable 07/23/21 04:00 Seg Neutrophils # 5.3 K/mm3 (1.8-7.7) 07/22/21 02:45 Seg Neutrophils # Man 2.8 K/mm3 (1.8-7.7) 07/23/21 04:00 Band Neutrophils # 0.0 K/mm3 07/23/21 04:00 Lymphocytes # (Manual) 2.6 K/mm3 (1.2-5.4) 07/23/21 04:00 Abs React Lymphs (Man) 0.0 K/mm3 07/23/21 04:00 Monocytes # (Manual) 0.4 K/mm3 (0.0-0.8) 07/23/21 04:00 Eosinophils # (Manual) 0.0 K/mm3 (0.0-0.4) 07/23/21 04:00 Basophils # (Manual) 0.0 K/mm3 (0.0-0.1) 07/23/21 04:00 Metamyelocytes # 0.0 K/mm3 07/23/21 04:00 Myelocytes # 0.0 K/mm3 07/23/21 04:00 Promyelocytes # 0.0 K/mm3 07/23/21 04:00 Blast Cells # 0.0 K/mm3 07/23/21 04:00 WBC Morphology Not Reportable 07/23/21 04:00 Hypersegmented Neuts Not Reportable 07/23/21 04:00 Hyposegmented Neuts Not Reportable 07/23/21 04:00 Hypogranular Neuts Not Reportable 07/23/21 04:00 Smudge Cells Not Reportable 07/23/21 04:00 Toxic Granulation Not Reportable 07/23/21 04:00 Toxic Vacuolation Not Reportable 07/23/21 04:00 Dohle Bodies Not Reportable 07/23/21 04:00 Pelger-Huet Anomaly Not Reportable 07/23/21 04:00 Cortez Rods Not Reportable 07/23/21 04:00 Platelet Estimate Consistent w auto 07/23/21 04:00 Clumped Platelets Not Reportable 07/23/21 04:00 Plt Clumps, EDTA Not Reportable 07/23/21 04:00 Large Platelets Not Reportable 07/23/21 04:00 Giant Platelets Not Reportable 07/23/21 04:00 Platelet Satelliting Not Reportable 07/23/21 04:00 Plt Morphology Comment Not Reportable 07/23/21 04:00 RBC Morphology Not Reportable 07/23/21 04:00 Dimorphic RBCs Not Reportable 07/23/21 04:00 Polychromasia Not Reportable 07/23/21 04:00 Hypochromasia Not Reportable 07/23/21 04:00 Poikilocytosis Not Reportable 07/23/21 04:00 Anisocytosis 1+ 07/23/21 04:00 Microcytosis Not Reportable 07/23/21 04:00 Macrocytosis Not Reportable 07/23/21 04:00 Spherocytes Not Reportable 07/23/21 04:00 Pappenheimer Bodies Not Reportable 07/23/21 04:00 Sickle Cells Not Reportable 07/23/21 04:00 Target Cells Not Reportable 07/23/21 04:00 Tear Drop Cells Not Reportable 07/23/21 04:00 Ovalocytes Not Reportable 07/23/21 04:00 Helmet Cells Not Reportable 07/23/21 04:00 Torres-Lowry Bodies Not Reportable 07/23/21 04:00 [place] Rings Not Reportable 07/23/21 04:00 Anjelica Cells Not Reportable 07/23/21 04:00 Bite Cells Not Reportable 07/23/21 04:00 Crenated Cell Not Reportable 07/23/21 04:00 Elliptocytes Not Reportable 07/23/21 04:00 Acanthocytes (Spur) Not Reportable 07/23/21 04:00 Rouleaux Not Reportable 07/23/21 04:00 Hemoglobin C Crystals Not Reportable 07/23/21 04:00 Schistocytes Not Reportable 07/23/21 04:00 Malaria parasites Not Reportable 07/23/21 04:00 Gianfranco Bodies Not Reportable 07/23/21 04:00 Hem Pathologist Commnt No 07/23/21 04:00 PT 13.0 Sec. (12.2-14.9) 07/22/21 02:45 INR 0.89 (0.87-1.13) 07/22/21 02:45 APTT 25.8 Sec. (24.2-36.6) 07/22/21 02:45 ABG pH 7.399 pH Units (7.350-7.450) 07/23/21 04:42 ABG pCO2 41.2 mm Hg 07/23/21 04:42 ABG pO2 181.4 mm Hg (80.0-90.0) H 07/23/21 04:42 ABG HCO3 24.9 mmol/L (20.0-26.0) 07/23/21 04:42 ABG O2 Saturation 99.1 % (95.0-99.0) H 07/23/21 04:42 ABG O2 Content 14.9 (0.0-44) 07/23/21 04:42 ABG Base Excess 0.1 mmol/L (-2.0-3.0) 07/23/21 04:42 ABG Hemoglobin 10.6 gm/dl (14.0-18.0) L 07/23/21 04:42 ABG Carboxyhemoglobin 1.0 % (0.0-5.0) 07/23/21 04:42 ABG Methemoglobin 0.4 % (0.0-1.5) 07/23/21 04:42 Oxyhemoglobin 97.7 % (95.0-99.0) 07/23/21 04:42 FiO2 40 % 07/23/21 04:42 Sodium 137 mmol/L (137-145) 07/25/21 09:12 Potassium 4.1 mmol/L (3.6-5.0) 07/25/21 09:12 Chloride 101.6 mmol/L (98-107) 07/25/21 09:12 Carbon Dioxide 28 mmol/L (22-30) 07/25/21 09:12 Anion Gap 12 mmol/L 07/25/21 09:12 BUN 5 mg/dL (9-20) L 07/25/21 09:12 Creatinine 0.9 mg/dL (0.8-1.3) 07/25/21 09:12 Estimated GFR > 60 ml/min 07/25/21 09:12 BUN/Creatinine Ratio 6 % 07/25/21 09:12 Glucose 94 mg/dL (75-100) 07/25/21 09:12 POC Glucose 101 mg/dL (70-105) 07/22/21 17:37 Lactic Acid 1.50 mmol/L (0.7-2.0) 07/22/21 09:00 Calcium 8.2 mg/dL (8.4-10.2) L 07/25/21 09:12 Phosphorus 3.50 mg/dL (2.5-4.5) 07/25/21 09:12 Magnesium 2.30 mg/dL (1.7-2.3) 07/25/21 09:12 Total Bilirubin 0.50 mg/dL (0.1-1.2) 07/22/21 02:45 AST 29 units/L (5-40) 07/22/21 02:45 ALT 19 units/L (7-56) 07/22/21 02:45 Alkaline Phosphatase 67 units/L (35-129) 07/22/21 02:45 Total Creatine Kinase 843 units/L (55-170) H 07/22/21 02:45 Total Protein 8.3 g/dL (6.3-8.2) H 07/22/21 02:45 Albumin 4.3 g/dL (3.9-5) 07/22/21 02:45 Albumin/Globulin Ratio 1.1 % 07/22/21 02:45 TSH 3.360 mlU/mL (0.270-4.200) 07/22/21 02:45 Urine Color Yellow (Yellow) 07/22/21 Unknown Urine Turbidity Clear (Clear) 07/22/21 Unknown Urine pH 5.0 (5.0-7.0) 07/22/21 Unknown Ur Specific [place] 1.024 (1.003-1.030) 07/22/21 Unknown Urine Protein 30 mg/dl mg/dL (Negative) 07/22/21 Unknown Urine Glucose (UA) Neg mg/dL (Negative) 07/22/21 Unknown Urine Ketones Tr mg/dL (Negative) 07/22/21 Unknown Urine Blood Neg (Negative) 07/22/21 Unknown Urine Nitrite Neg (Negative) 07/22/21 Unknown Urine Bilirubin Neg (Negative) 07/22/21 Unknown Urine Urobilinogen 4.0 mg/dL (<2.0) 07/22/21 Unknown Ur Leukocyte Esterase Neg (Negative) 07/22/21 Unknown Urine WBC (Auto) 6.0 /HPF (0.0-6.0) 07/22/21 Unknown Urine RBC (Auto) 2.0 /HPF (0.0-6.0) 07/22/21 Unknown U Epithel Cells (Auto) < 1.0 /HPF (0-13.0) 07/22/21 Unknown Urine Bacteria (Auto) 1+ /HPF (Negative) 07/22/21 Unknown Urine Mucus Few /HPF 07/22/21 Unknown Vancomycin Trough 8.2 ug/mL (5.0-20.0) 07/24/21 18:18 Salicylates < 0.3 mg/dL (2.8-20.0) L 07/22/21 02:45 Urine Opiates Screen Presumptive negative 07/22/21 Unknown Urine Methadone Screen Presumptive negative 07/22/21 Unknown Acetaminophen 5.0 ug/mL (10.0-30.0) L 07/22/21 03:00 Ur Barbiturates Screen Presumptive negative 07/22/21 Unknown Ur Phencyclidine Scrn Presumptive negative 07/22/21 Unknown Ur Amphetamines Screen Presumptive positive 07/22/21 Unknown U Benzodiazepines Scrn Presumptive negative 07/22/21 Unknown Urine Cocaine Screen Presumptive negative 07/22/21 Unknown U Marijuana (THC) Screen Presumptive positive 07/22/21 Unknown Drugs of Abuse Note Disclamer 07/22/21 Unknown Plasma/Serum Alcohol < 0.01 % (0-0.07) 07/22/21 02:45 Syphilis IgG/IgM Ab Reactive (NonReactive) A 07/22/21 02:45 RPR Titer 1:32 (1:1-1:2) 07/22/21 02:45 Coronavirus (PCR) Negative (Negative) 07/22/21 09:45 Microbiology: Microbiology 07/22/21 02:37 Peripheral/Venous Blood Culture - Preliminary NO GROWTH AFTER 72 HOURS 07/22/21 02:45 Peripheral/Venous Blood Culture - Preliminary NO GROWTH AFTER 72 HOURS 07/22/21 03:33 Tracheal Aspirate Sputum Culture - Final Conrad/IV: Voiding Method Toilet Active Medications - Current Medications Current Medications: Generic Name Dose Route Start Last Admin Trade Name Freq PRN Reason Stop Dose Admin Acetaminophen 650 mg 07/22/21 04:03 Acetaminophen 650 Mg Rect Supp HI Q6H PRN Pain MILD(1-3)/Fever >100.5/ALBERT Acetaminophen 650 mg 07/25/21 10:00 07/25/21 09:19 Acetaminophen 325 Mg Tab PO 650 mg Q6H PRN Administration Pain, Mild (1-3) Famotidine 10 mg 07/23/21 10:00 07/25/21 09:19 Famotidine 10 Mg Tab PO 10 mg BID AMOS Administration Haloperidol Lactate 5 mg 07/22/21 02:01 07/22/21 02:10 Haloperidol Lactate 5 Mg/1 Ml Inj IM 5 mg Q6HR PRN Administration Agitation Heparin Sodium (Porcine) 5,000 unit 07/22/21 10:00 07/24/21 21:26 Heparin 5,000 Unit/1 Ml Vial SUB-Q 5,000 unit Q12HR AMOS Administration Ceftriaxone Sodium 2 gm in 100 mls @ 200 mls/hr 07/22/21 16:00 07/25/21 03:00 Rocephin/Ns 2 Gm/100 Ml IV 200 mls/hr Q12H AMOS Administration Protocol Acyclovir 690 mg/ Sodium 113.8 mls @ 100 mls/hr 07/22/21 14:00 07/25/21 05:07 Chloride IV 100 mls/hr Q8HR AMOS Administration Protocol Vancomycin HCl 1,250 mg/ 275 mls @ 166.667 mls/hr 07/25/21 18:00 Sodium Chloride IV Q12H AMOS Sodium Chloride 1,000 mls @ 75 mls/hr 07/25/21 08:30 07/25/21 09:20 Nacl 0.9% 1000 Ml IV 75 mls/hr DIRECT AMOS Administration Nicotine 14 mg 07/25/21 10:00 07/25/21 09:19 Nicotine 14 Mg/24 Hr Patch TD 14 mg QDAY AMOS Administration Ondansetron HCl 4 mg 07/22/21 04:03 Ondansetron 4 Mg/2 Ml Inj IV Q8H PRN Nausea And Vomiting Senna/Docusate Sodium 1 tab 07/24/21 22:00 07/24/21 21:27 Sennosides/Docusate Sodium 8.6/50 Mg Tab PO Not Given QHS AMOS Sodium Chloride 10 ml 07/22/21 10:00 07/24/21 21:26 Sodium Chloride 0.9% 10 Ml Flush Syringe IV 10 ml BID AMOS Administration Sodium Chloride 10 ml 07/22/21 04:03 Sodium Chloride 0.9% 10 Ml Flush Syringe IV PRN PRN LINE FLUSH Nutrition/Malnutrition Assess - Dietary Evaluation Nutrition/Malnutrition Findings: Nutrition Notes Start: 07/22/21 11:24 Freq: Status: Active Protocol: Document 07/24/21 12:28 JANUSZ (Rec: 07/24/21 12:53 JANUSZ [email or web address]) Nutrition Notes Initial or Follow up Brief Note Current Diagnosis Acute Kidney Injury,Sepsis, Respiratory Failure Other Pertinent Diagnosis HIV/AIDS, Syphilis, Encephalopathy, Polysubstance Abuse, ... Current Diet Clear Liquids Diet (since B ). Height 5 ft 10 in Weight 68.6 kg [place] Body Weight (kg) 75.45 BMI 21.7 Intake Prior to Admission Good Weight change and time frame Pt states being unsure if loss body weight [employer]. No body weight change reported in 3 days. Weight Status Appropriate Subjective/Other Information RD consult for routine F/U on dietary advancement. TF discontinued, diet advanced to PO, No reports available on Pt's PO intake of meals at the time, will assess at F/U. Pt extubated on 06/12 pm, Pt is on Nasal Cannula, O2 saturation @ 100%, according to Physical Assessment History notes, Bedside Swallow Screen passed on 07/13, according to Swallow Screen notes. Percent of energy/protein needs met: Prescribed Clear Liquids Diet provides for energy/protein needs (590 Kcal/16 g) during LOS. #1 Nutrition Diagnosis Inadequate oral intake Comments: TF discontinued, diet advanced to PO, No reports available on Pt's PO intake of meals at the time, will assess at F/U. Diagnosis Progress(for reassessment Resolved documentation) Is patient on ventilator? No Is Patient Ambulatory and/or Out of Bed No REE-([place] Jeor-confined to bed) [phone] Calculation [facility]ations [facility] Additional Notes Protein: 0.8-1.2 g/Kg ABW; 55- 83 g/day. Fluids: 1 ml/Kcal, or as per MD. Nutrition Intervention Change Diet Order: Continue Clear Liquids Diet, advance to Full Liquids Diet as tolerated. Nutrition Support: Discontinued. Goal #1 Adjust the dietary intervention to better serve Pt's needs and clinical conditions during LOS. Follow-Up By: 07/31/21 Additional Comments Continue monitoring food tolerance, %PO intake of meals , and BM.
[2021-07-25] MEDS ORDERED: HYDROmorphone 2 MG/1 ML INJ IV NR (11:10)
[2021-07-25] MEDS: HEPARIN 5,000 UNIT/1 ML VIAL SUB-Q SCH ×2 (11:45→22:08)
[2021-07-25] MEDS ORDERED: HYDROmorphone 1 MG/1 ML INJ IV NR (12:00)
--- NOTE | 2021-07-25 14:45 | Procedure Note ---
Date of procedure: 07/25/21 Pre-op diagnosis: meningitis, infection Post-op diagnosis: same Procedure: lumbar puncture under flouro Findings: none Anesthesia: local Surgeon: CHEVY MCCOLLUM Estimated blood loss: none Pathology: list (4 csf tubes) Specimen disposition: to lab Condition: stable Disposition: floor
--- NOTE | 2021-07-25 15:07 | Fluoroscopy Report ---
LUMBAR PUNCTURE INDICATION : Meningitis, neurosyphilis PROCEDURE: The risks (including but not limited to bleeding, infection, and spinal headache) and tana efits were explained to the patient and informed consent was obtained. A time out procedure was perf ormed. The procedure site was prepped and draped in the usual sterile fashion and lidocaine was used for local anesthesia. Under fluoroscopic guidance, a 22-gauge spinal needle was advanced into the L3-4 interlaminar space. The opening pressure was 110 mm H2O which was calculated by adding the length of the needle (9 cm) to the height of the CSF column. 4 separate collection tubes were used to obtain approximately 1.5 cc o f CSF each Samples were sent to the lab per the ordering physician specifications for further evaluat ion. The patient tolerated the procedure well with no complications. IMPRESSION: Successful lumbar puncture as outlined above. Opening pressure was 110 mm H20. Fluoroscopic time: 1 minute Number of fluoroscopic images: 1 Signer Name: Dave Weston Jr, MD Signed: 07/25/2021 3:02 PM Workstation Name: [id number]
[2021-07-25 15:37] LABS: Glucose,CSF 61 mg/dL
--- NOTE | 2021-07-25 16:09 | Progress Note ---
Assessment and Plan Assessment/Plan: #Severe sepsis: Present admission with fever, tachycardia, altered mental status, elevated lactate, elevated creatinine; of unclear etiology, suspect acute meningitis/drug intoxication/neurosyphilis. Blood culture no growth so far. Urinalysis unremarkable. Chest x-ray unremarkable. CT head unremarkable. #NOAH: Likely due to 1. Improving. #Syphilis: Rule out neurosyphilis Recommendations: Obtain fluoroscopy guided lumbar puncture, send CSF for cell count, differ ential, glucose, protein, cryptococcal antigen, HSV 1/2 PCR, VDRL -done today, follow up results Obtain HIV viral load and CD4 Obtain cryptococcal serum antigen Continue vancomycin with PK consult Continue ceftriaxone 2 g IV every 12 hours Continue acyclovir 10 mg/kg IV q 8 hour If mentation not better consider brain MRI when stable Full consultation to follow tomorrow Delmi Hilton MD [facility] O: [phone] F: [phone] Subjective Date of service: 07/25/21 Principal diagnosis: sepsis Interval history: Afebrile, white count 3. Had LP done today. Objective - Exam Narrative Exam: Physical Exam: Constitutional: Alert, cooperative. No acute distress Head, Ears, Nose: Normocephalic, atraumatic. External ears, nose normal Eyes: Conjunctivae/corneas clear. No icterus. No ptosis. Neck: Supple, no meningeal signs Oral: dentition fair, no thrush Cardiovascular: S1, S2 normal. Respiratory: Good air entry, clear to auscultation bilaterally GI: Soft, non-tender; bowel sounds normal. No peritoneal signs. Musculoskeletal: No pedal edema, no cyanosis. Skin: No rash or abscess Hem/Lymphatic: No palpable cervical or supraclavicular nodes. No lymphangitis Psych: Mood ok. Affect normal Neurological: Awake, alert, oriented. No gross abnormality - Constitutional Vitals: Vital Signs Temp Pulse Resp BP Pulse Ox 98.1 F 67 18 127/74 100 07/25/21 08:00 07/25/21 11:00 07/25/21 11:00 07/25/21 11:00 07/25/21 11:00 Temperature -Last 24 Hours Temperature 98.1 F Temperature 97.8 F Temperature 98.1 F Temperature 97.9 F - Labs CBC & Chem 7: 07/25/21 09:12 07/25/21 09:12 Labs: Abnormal lab results 07/25/21 07/25/21 Range/Units 09:12 09:12 WBC 3.0 L (4.5-11.0) K/mm3 Hgb 11.5 L (11.8-15.2) gm/dl MCV 72 L (84-94) fl MCH 23 L (28-32) pg RDW 15.4 H (13.2-15.2) % BUN 5 L (9-20) mg/dL Calcium 8.2 L (8.4-10.2) mg/dL
--- NOTE | 2021-07-25 16:35 | Progress Note ---
Assessment and Plan Acute hypoxic Respiratory Failure -extubated Polysubstance abuse disorder Fever with AMS h/o HIV Syphilis- Unclear if active vs Latent Lactic Acidosis/Metabolic Acidosis-resolved R/O Meningitis Acute Encephalopathy- Toxic vs Metabolic Acute Kidney Injury(NOAH) most likely vasomotor Nephropathy Follow up spinal tap He continues to make clinical progress Discharge planning -Titrate supplemental oxygen to keep SpO2 89-92% -Monitoring renal function, hemodynamics and electrolyte profile -Replete electrolytes as clinically indicated -Accuchecks with glycemic control. target blood glucose 140-180 mg/dL. Avoid hypoglycemia -VTE prophylaxis- ambulate Subjective Date of service: 07/25/21 Principal diagnosis: sepsis Interval history: This is a 31-year-old male with known past medical history of HIV/AIDS and seizures admitted fevers and AMS now on ventilatory support for airway protection Seen and examined. No adverse overnight events. Discussed with nursing staff. No fevers, no vomiting, no diarrhea Had spinal tap this afternoon Objective Vital Signs - 12hr 07/25/21 07/25/21 07/25/21 05:00 06:01 07:00 Temperature Pulse Rate 73 66 70 Respiratory 14 14 13 Rate Blood Pressure 121/73 141/70 131/81 O2 Sat by Pulse 96 99 100 Oximetry 07/25/21 07/25/21 07/25/21 08:00 09:00 09:27 Temperature 98.1 F Pulse Rate 81 80 Respiratory 11 L 20 Rate Blood Pressure 131/83 149/95 O2 Sat by Pulse 100 100 97 Oximetry 07/25/21 07/25/21 10:00 11:00 Temperature Pulse Rate 81 67 Respiratory 17 18 Rate Blood Pressure 151/95 127/74 O2 Sat by Pulse 99 100 Oximetry Constitutional: no acute distress, alert Eyes: non-icteric ENT: oropharynx moist Neck: supple, no lymphadenopathy Effort: normal Ascultation: Bilateral: clear, diminished breath sounds Cardiovascular: regular rate and rhythm Gastrointestinal: normoactive bowel sounds, soft, non-tender Integumentary: normal Extremities: no cyanosis Neurologic: normal mental status, non-focal exam, pupils equal and round, CN II- XII normal, motor strength normal and Psychiatric: mood appropriate, affect normal CBC and BMP: 07/25/21 09:12 07/25/21 09:12 ABG, PT/INR, D-dimer: ABG ABG pH 7.399 pH Units (7.350-7.450) 07/23/21 04:42 ABG pCO2 41.2 mm Hg 07/23/21 04:42 ABG pO2 181.4 mm Hg (80.0-90.0) H 07/23/21 04:42 ABG O2 Saturation 99.1 % (95.0-99.0) H 07/23/21 04:42 PT/INR, D-dimer PT 13.0 Sec. (12.2-14.9) 07/22/21 02:45 INR 0.89 (0.87-1.13) 07/22/21 02:45 Abnormal lab findings: Abnormal Labs 07/22/21 07/22/21 07/22/21 02:45 02:45 02:45 WBC RBC 5.43 H Hgb Hct MCV 73 L MCH 23 L MCHC 31 L RDW 15.5 H [place] % (Auto) 7.9 H Lymphocytes % (Manual) ABG pH ABG pO2 ABG HCO3 ABG O2 Saturation ABG Base Excess ABG Hemoglobin Potassium Carbon Dioxide 16 L BUN Creatinine 1.5 H Glucose Lactic Acid Calcium Total Creatine Kinase Total Protein 8.3 H Salicylates < 0.3 L Acetaminophen Syphilis IgG/IgM Ab 07/22/21 07/22/21 07/22/21 02:45 02:45 02:45 WBC RBC Hgb Hct MCV MCH MCHC RDW [place] % (Auto) Lymphocytes % (Manual) ABG pH ABG pO2 ABG HCO3 ABG O2 Saturation ABG Base Excess ABG Hemoglobin Potassium Carbon Dioxide BUN Creatinine Glucose Lactic Acid 11.70 H* Calcium Total Creatine Kinase 843 H Total Protein Salicylates Acetaminophen 5.0 L Syphilis IgG/IgM Ab 07/22/21 07/22/21 07/22/21 02:45 03:00 03:09 WBC RBC Hgb Hct MCV MCH MCHC RDW [place] % (Auto) Lymphocytes % (Manual) ABG pH 7.301 L ABG pO2 458.9 H ABG HCO3 19.7 L ABG O2 Saturation 99.6 H ABG Base Excess -6.3 L ABG Hemoglobin 11.4 L Potassium Carbon Dioxide BUN Creatinine Glucose Lactic Acid Calcium Total Creatine Kinase Total Protein Salicylates Acetaminophen 5.0 L Syphilis IgG/IgM Ab Reactive A 07/23/21 07/23/21 07/23/21 04:00 04:00 04:42 WBC RBC Hgb 11.1 L Hct MCV 74 L MCH 22 L MCHC 31 L RDW 15.5 H [place] % (Auto) Lymphocytes % (Manual) 45.0 H ABG pH ABG pO2 181.4 H ABG HCO3 ABG O2 Saturation 99.1 H ABG Base Excess ABG Hemoglobin 10.6 L Potassium Carbon Dioxide BUN 5 L Creatinine Glucose Lactic Acid Calcium 8.3 L Total Creatine Kinase Total Protein Salicylates Acetaminophen Syphilis IgG/IgM Ab 07/24/21 07/24/21 07/25/21 03:40 03:40 09:12 WBC 4.3 L 3.0 L RBC Hgb 10.8 L 11.5 L Hct 34.4 L MCV 73 L 72 L MCH 23 L 23 L MCHC 31 L RDW 15.6 H 15.4 H [place] % (Auto) Lymphocytes % (Manual) ABG pH ABG pO2 ABG HCO3 ABG O2 Saturation ABG Base Excess ABG Hemoglobin Potassium 3.5 L D Carbon Dioxide BUN 5 L Creatinine Glucose 106 H Lactic Acid Calcium 8.0 L Total Creatine Kinase Total Protein Salicylates Acetaminophen Syphilis IgG/IgM Ab 07/25/21 09:12 WBC RBC Hgb Hct MCV MCH MCHC RDW [place] % (Auto) Lymphocytes % (Manual) ABG pH ABG pO2 ABG HCO3 ABG O2 Saturation ABG Base Excess ABG Hemoglobin Potassium Carbon Dioxide BUN 5 L Creatinine Glucose Lactic Acid Calcium 8.2 L Total Creatine Kinase Total Protein Salicylates Acetaminophen Syphilis IgG/IgM Ab Allied health notes reviewed: nursing
[2021-07-25 18:06] LABS: Appearance,CSF Clear; Red Blood Cell,CSF 151 /mm3 (0-0); White Blood Cell,CSF 3 /mm3 (1-10)
[2021-07-25 18:14] LABS: Total Cells Counted 50 /mm3
[2021-07-25 18:15] LABS: Basophils CSF 0 %
[2021-07-25] MEDS: VANCOMYCIN 1,250 MG in SODIUM CHLORIDE 0.9% 250ML 250 ML IV SCH (19:00)
[2021-07-25] MEDS: SENNOSIDES/DOCUSATE SODIUM 8.6/50 MG TAB PO SCH (22:08)
[2021-07-25] MEDS: HALOPERIDOL LACTATE 5 MG/1 ML INJ IM PRN (22:36)
[2021-07-26] MEDS ORDERED: ACETAMINOPHEN 325 MG TAB PO PRN (00:11)
[2021-07-26] MEDS: cefTRIAXone/NS 2 GM/100 ML 2 GM/100 ML BAG IV SCH (03:53)
[2021-07-26] MEDS: SODIUM CHLORIDE 0.9% 1000 ML 1,000 ML IV SCH (03:53)
[2021-07-26] MEDS: VANCOMYCIN 1,250 MG in SODIUM CHLORIDE 0.9% 250ML 250 ML IV SCH (05:49)
[2021-07-26 06:32] VITALS: BP 135/74
--- NOTE | 2021-07-26 07:54 | Progress Note ---
Assessment and Plan 31-year-old -[place] male brought into the emergency room with altered mental status. He was acutely delirious upon arrival in the emergency room. Most of the history was gotten from the ER staff as there was no family member patient intubated. He was said to be febrile to 101.4 F upon arrival, tachycardic and diaphoretic. Was also said to be acutely psychotic and subsequently intubated to protect his airway. Work-up in the emergency room , CT scan of the head shows no acute abnormality. Chest x-ray shows no acute cardiopulmonary abnormality. Labs however shows lactic acid of 11.2, creatinine of 1.5, creatinine kinase of 843. Toxicology screen was positive for amphetamine, marijuana. An attempt was made to do a spinal tap by the ER physician ,not successful. However, patient was commenced on empiric IV antibiotics for possible underlying meningitis. Patient has history of HIV/AIDS, seizures. Patient has history smoking cigaretts and Marijuana use. Patient admitted for following conditions. Acute hypoxic Respiratory Failure -extubated Polysubstance abuse disorder Fever with AMS h/o HIV/AIDS Syphilis- Unclear if active vs Latent Lactic Acidosis/Metabolic Acidosis-resolved R/O Meningitis Acute Encephalopathy- Toxic vs Metabolic Acute Kidney Injury(NOAH) most likely vasomotor Nephropathy Patient extubated and transfered to telemetry. Patient alert, awake. Patient suppose to use 2 litres O2. Patient not using O2 as recommended. O2 saturation reported 100%. Patient denies chest pain, maryjane rtness of breath or cough. Patient afebrile. No leukocytosis. Blood pressure 135/74, pulse 62, res pirations 18. Chest xray done 07/24/21 reported No active cardiopulmonary disease. Interval removal of endotracheal tube and esophagogastric tube. Patient is on ceftriaxone, vancomycin, Acyclovir, Famotidine, S/C Heparin and Habitrol patch. I spent critical care time of 40 minutes, reviewing the chart, examine the patient, revie labs and chest xray, talking with nursing staff and work up plan of treatment in this critically ill patient. - Patient Problems (1) Acute respiratory failure with hypoxia Current Visit: Yes Status: Acute Plan to address problem: O2 2 litres via nasal canula. Recommend albuterol/atrovent aerosol treatments. S/C Heparin. Famotidine. (2) Acute encephalopathy Current Visit: Yes Status: Acute Plan to address problem: Management as per primary care and neurology. (3) Altered mental status Current Visit: Yes Status: Acute Plan to address problem: Management as per primary care and neurology. (4) History of HIV infection Current Visit: Yes Status: Acute Plan to address problem: Management as per Infectious diseases. (5) NOAH (acute kidney injury) Current Visit: Yes Status: Acute Plan to address problem: Management as per nephrology. (6) Acquired syphilis Current Visit: Yes Status: Acute Plan to address problem: Management as per infectious diseases consultants. (7) Meningitis Current Visit: Yes Status: Acute Plan to address problem: Patient is on ceftriaxone, vancomycin and acyclovir. Patient has spinal tap yesterday. Reported spinal fluid clear, wbc 3. RBC 151. Spinal fluid glucose 61 , Spinal fluid protein 39. (8) Sepsis Current Visit: Yes Status: Acute Plan to address problem: Patient is on ceftriaxone, vancomycin and acyclovir. Subjective Date of service: 07/26/21 Principal diagnosis: sepsis Interval history: 31-year-old -[place] male brought into the emergency room with altered mental status. He was acutely delirious upon arrival in the emergency room. Most of the history was gotten from the ER staff as there was no family member patient intubated. He was said to be febrile to 101.4 F upon arrival, tachycardic and diaphoretic. Was also said to be acutely psychotic and subsequently intubated to protect his airway. Work-up in the emergency room , CT scan of the head shows no acute abnormality. Chest x-ray shows no acute cardiopulmonary abnormality. Labs however shows lactic acid of 11.2, creatinine of 1.5, creatinine kinase of 843. Toxicology screen was positive for amphetamine, marijuana. An attempt was made to do a spinal tap by the ER physician ,not successful. However, patient was commenced on empiric IV antibiotics for possible underlying meningitis. Patient has history of HIV/AIDS, seizures. Patient has history smoking cigaretts and Marijuana use. Patient admitted for following conditions. Acute hypoxic Respiratory Failure -extubated Polysubstance abuse disorder Fever with AMS h/o HIV/AIDS Syphilis- Unclear if active vs Latent Lactic Acidosis/Metabolic Acidosis-resolved R/O Meningitis Acute Encephalopathy- Toxic vs Metabolic Acute Kidney Injury(NOAH) most likely vasomotor Nephropathy Patient extubated and transfered to telemetry. Patient alert, awake. Patient suppose to use 2 litres O2. Patient not using O2 as recommended. O2 saturation reported 100%. Patient denies chest pain, shortnes s of breath or cough. Patient afebrile. No leukocytosis. Blood pressure 135/74, pulse 62, respirat ions 18. Chest xray done 07/24/21 reported No active cardiopulmonary disease. Interval r emoval of endotracheal tube and esophagogastric tube. Patient is on ceftriaxone, vancomycin, Acyclovir, Famotidine, S/C Heparin and Habitrol patch. Objective Vital Signs - 12hr 07/25/21 07/25/21 07/25/21 20:00 20:01 20:41 Temperature 98.2 F Pulse Rate 64 Respiratory 13 Rate Blood Pressure 133/79 O2 Sat by Pulse 99 100 Oximetry 07/25/21 07/25/21 07/25/21 21:01 22:00 22:35 Temperature 98.4 F Pulse Rate 73 72 Respiratory 18 18 Rate Blood Pressure 151/74 128/59 O2 Sat by Pulse 99 99 100 Oximetry 07/26/21 07/26/21 00:00 04:02 Temperature 98.8 F Pulse Rate 62 Respiratory 18 Rate Blood Pressure 135/74 O2 Sat by Pulse 99 100 Oximetry Constitutional: no acute distress, alert Eyes: non-icteric ENT: oropharynx moist Neck: supple, no lymphadenopathy Effort: normal Ascultation: Bilateral: diminished breath sounds Cardiovascular: regular rate and rhythm Gastrointestinal: normoactive bowel sounds, soft, non-tender Integumentary: normal Extremities: no cyanosis Neurologic: normal mental status, non-focal exam, pupils equal and round, CN II- XII normal, motor strength normal and Psychiatric: mood appropriate, affect normal CBC and BMP: 07/25/21 09:12 07/25/21 09:12 ABG, PT/INR, D-dimer: ABG ABG pH 7.399 pH Units (7.350-7.450) 07/23/21 04:42 ABG pCO2 41.2 mm Hg 07/23/21 04:42 ABG pO2 181.4 mm Hg (80.0-90.0) H 07/23/21 04:42 ABG O2 Saturation 99.1 % (95.0-99.0) H 07/23/21 04:42 PT/INR, D-dimer PT 13.0 Sec. (12.2-14.9) 07/22/21 02:45 INR 0.89 (0.87-1.13) 07/22/21 02:45 Abnormal lab findings: Abnormal Labs 07/22/21 07/22/21 07/22/21 02:45 02:45 02:45 WBC RBC 5.43 H Hgb Hct MCV 73 L MCH 23 L MCHC 31 L RDW 15.5 H [place] % (Auto) 7.9 H Lymphocytes % (Manual) ABG pH ABG pO2 ABG HCO3 ABG O2 Saturation ABG Base Excess ABG Hemoglobin Potassium Carbon Dioxide 16 L BUN Creatinine 1.5 H Glucose Lactic Acid Calcium Total Creatine Kinase Total Protein 8.3 H Salicylates < 0.3 L Acetaminophen Syphilis IgG/IgM Ab 07/22/21 07/22/21 07/22/21 02:45 02:45 02:45 WBC RBC Hgb Hct MCV MCH MCHC RDW [place] % (Auto) Lymphocytes % (Manual) ABG pH ABG pO2 ABG HCO3 ABG O2 Saturation ABG Base Excess ABG Hemoglobin Potassium Carbon Dioxide BUN Creatinine Glucose Lactic Acid 11.70 H* Calcium Total Creatine Kinase 843 H Total Protein Salicylates Acetaminophen 5.0 L Syphilis IgG/IgM Ab 07/22/21 07/22/21 07/22/21 02:45 03:00 03:09 WBC RBC Hgb Hct MCV MCH MCHC RDW [place] % (Auto) Lymphocytes % (Manual) ABG pH 7.301 L ABG pO2 458.9 H ABG HCO3 19.7 L ABG O2 Saturation 99.6 H ABG Base Excess -6.3 L ABG Hemoglobin 11.4 L Potassium Carbon Dioxide BUN Creatinine Glucose Lactic Acid Calcium Total Creatine Kinase Total Protein Salicylates Acetaminophen 5.0 L Syphilis IgG/IgM Ab Reactive A 07/23/21 07/23/21 07/23/21 04:00 04:00 04:42 WBC RBC Hgb 11.1 L Hct MCV 74 L MCH 22 L MCHC 31 L RDW 15.5 H [place] % (Auto) Lymphocytes % (Manual) 45.0 H ABG pH ABG pO2 181.4 H ABG HCO3 ABG O2 Saturation 99.1 H ABG Base Excess ABG Hemoglobin 10.6 L Potassium Carbon Dioxide BUN 5 L Creatinine Glucose Lactic Acid Calcium 8.3 L Total Creatine Kinase Total Protein Salicylates Acetaminophen Syphilis IgG/IgM Ab 07/24/21 07/24/21 07/25/21 03:40 03:40 09:12 WBC 4.3 L 3.0 L RBC Hgb 10.8 L 11.5 L Hct 34.4 L MCV 73 L 72 L MCH 23 L 23 L MCHC 31 L RDW 15.6 H 15.4 H [place] % (Auto) Lymphocytes % (Manual) ABG pH ABG pO2 ABG HCO3 ABG O2 Saturation ABG Base Excess ABG Hemoglobin Potassium 3.5 L D Carbon Dioxide BUN 5 L Creatinine Glucose 106 H Lactic Acid Calcium 8.0 L Total Creatine Kinase Total Protein Salicylates Acetaminophen Syphilis IgG/IgM Ab 07/25/21 09:12 WBC RBC Hgb Hct MCV MCH MCHC RDW [place] % (Auto) Lymphocytes % (Manual) ABG pH ABG pO2 ABG HCO3 ABG O2 Saturation ABG Base Excess ABG Hemoglobin Potassium Carbon Dioxide BUN 5 L Creatinine Glucose Lactic Acid Calcium 8.2 L Total Creatine Kinase Total Protein Salicylates Acetaminophen Syphilis IgG/IgM Ab Chest x-ray: report reviewed, image reviewed Additional Studies: CHEST 1 VIEW 07/25/11 INDICATION / CLINICAL INFORMATION: follow up respiratory failure. COMPARISON: Chest x-ray 07/23/2021 FINDINGS: SUPPORT DEVICES: None. HEART / MEDIASTINUM: No significant abnormality. LUNGS / PLEURA: No significant pulmonary abnormality. BONES: No significant osseous abnormality. ADDITIONAL FINDINGS: No significant additional findings. IMPRESSION: 1. No active cardiopulmonary disease. Interval removal of endotracheal tube and esophagogastric tube. Allied health notes reviewed: nursing
--- NOTE | 2021-07-26 08:30 | Progress Note ---
Assessment and Plan Assessment and plan: This is a 31-year-old female with HIV/AIDs, seizures, nicotine abuse who presents the emergency department with altered mental status and upper presentation was acutely psychotic on arrival to to emergency department, febrile to 101.4, tachycardic and diaphoretic and he was medicated with Benadryl, Ativan and Haldol and was placed on 1013 hold. Patient was eventually intubated to protect his airway and lumbar puncture was completed without inability to obtain CSF in the emergency department. Patient was admitted to the hospitalist service with acute metabolic encephalopathy, acute hypoxic respiratory failure, acute kidney injury to the ICU with consults to CCM, psychiatry and infectious disease. Hospital Course to Date: 07/22: Intubated and sedated. Fevers improved, VSS. FL lumbar puncture pending. D/w ID continue current empiric IV abx and antiviral for now. Trend lactic acid. Per CCM post SAT and SBT tomorrow if patient remains stable. 07/23: Failed SAT this am due to increase agitation. Remains stable on low vent setting, VSS. Will add precedex gtt in an attempt to wean off propofol gtt. Will attempt SAT /SBT again later on today if patient is appropriate, possible extubation today. Low grade fevers this am, WBCs wnr, continue current empiric IV Abx and antiviral. Possible FL lumbar puncture tomorrow. ID also on consult. 07/24: Patient is refusing lumbar puncture, patient will transfer to the floor. No acute events reported overnight. 07/25: This morning patient refused his labs and stated he was not aware of anything that is going on despite being updated by me yesterday. Patient updated at bedside today by me and RN. Patient wanted to his "options." Patient later agreed to LP and procedure labs reordered. IR updated by RN. 07/26: Continue empiric therapy for neurosyphilis. Awaiting finalization of CSF culture. will follow ID/pulm recommendations. Assessment and Plan Neuro: Acute metabolic encephalopathy, h/o seizures (takes no medications), methamphetamine and ETOH abuse -s/p precedex, propofol gtt -prn haldol -Reorientation as needed -Maintain sleep-wake cycle -seizure precautions -As needed analgesia -CT head with no acute intracranial abnormality -Psych consulted, appreciate recommendations -Signed off, associated will provide patient with outpatient psychiatric resources -Patient stated to psych that he thinks his marijuana was laced which made him see bugs -UDS (+) for meth and marijuana Cardiac: NAD -Blood pressure monitoring per protocol Respiratory: Acute Respiratory failure, current nicotine abuse -[facility] consulted, appreciate recommendations -Intubated on 07/22 with 7.5 OETT at 24 lips and extubated 07/23 -Pulmonary hygenie -SPO2 monitoring GI: NAD -24 hours +1320 -PPI -Regular diet -BR: Senokot S : Acute kidney injury secondary to vasomotor nephropathy (resolved), Hypokalem ia (resolved), rhabdomyolysis -Trend Intake and output -Renally dose medications -Avoid nephrotoxic medications -Trend BMP ID: r/o neurosyphilis, severe sepsis (POA), h/o HIV/AIDs and syphilis -Presented with fever, tachycardia, altered mental status, lactic acidosis, elevated creatinine -Infectious disease consulted, appreciate recommendations -LP attempted in the emergency department without inability to obtain CSF -LP pending -patient agreeable to procedure -Antibiotic therapy with vancomycin, ceftriaxone, acyclovir -Droplet precautions -f/u blood culture -Monitor WBC and temperature curve Endo: NAD -Avoid hypoglycemia Heme: Leukopenia -Trend CBC -Transfuse hemoglobin less than 7 -SCDs to BLE while in bed #Advance care planning Disease education conducted, care plan discussed, diagnoses discussed, prognosis discussed, patient is full code, patient acknowledges understanding and agree with care plan, +30 minutes History Interval history: No acute complaints, doing well this AM. Hospitalist Physical - Physical exam Narrative exam: Physical Exam: VITAL SIGNS: Reviewed. GENERAL: The patient appears normally developed, Vital signs as documented. HEAD: No signs of head trauma. EYES: Pupils are equal. Extraocular motions intact. EARS: Hearing grossly intact. MOUTH: Oropharynx is normal. NECK: No adenopathy, no JVD. CHEST: Chest with clear breath sounds bilaterally. No wheezes, rales, or rhonchi. CARDIAC: Regular rate and rhythm. S1 and S2, without murmurs, gallops, or rubs. VASCULAR: No Edema. Peripheral pulses normal and equal in all extremities. ABDOMEN: Soft, non tender and non distended. No rebound or guarding, and no masses palpated. Bowel Sounds normal. MUSCULOSKELETAL: Good range of motion of all major joints. Extremities without clubbing, cyanosis or edema. NEUROLOGIC EXAM: Alert and oriented x 4. no focal sensory or strength deficits. PSYCHIATRIC: Mood normal. SKIN: detail exam as documented in skin assessment - Constitutional Vitals: Temp Pulse Resp BP Pulse Ox 98.8 F 62 18 135/74 100 07/26/21 04:02 07/26/21 04:02 07/26/21 04:02 07/26/21 04:02 07/26/21 04:02 General appearance: Present: no acute distress, well-nourished, other (Intubated and sedated) Results - Labs CBC & Chem 7: 07/25/21 09:12 07/25/21 09:12 Labs: Laboratory Last Values WBC 3.0 K/mm3 (4.5-11.0) L 07/25/21 09:12 RBC 5.00 M/mm3 (3.65-5.03) 07/25/21 09:12 Hgb 11.5 gm/dl (11.8-15.2) L 07/25/21 09:12 Hct 36.0 % (35.5-45.6) 07/25/21 09:12 MCV 72 fl (84-94) L 07/25/21 09:12 MCH 23 pg (28-32) L 07/25/21 09:12 MCHC 32 % (32-34) 07/25/21 09:12 RDW 15.4 % (13.2-15.2) H 07/25/21 09:12 Plt Count 213 K/mm3 (140-440) 07/25/21 09:12 Lymph % (Auto) 21.1 % (13.4-35.0) 07/22/21 02:45 Brown % (Auto) Interlocker 07/23/21 04:00 Eos % (Auto) 0.8 % (0.0-4.3) 07/22/21 02:45 Baso % (Auto) 0.2 % (0.0-1.8) 07/22/21 02:45 Lymph # (Auto) 1.6 K/mm3 (1.2-5.4) 07/22/21 02:45 Brown # (Auto) 0.6 K/mm3 (0.0-0.8) 07/22/21 02:45 Eos # (Auto) 0.1 K/mm3 (0.0-0.4) 07/22/21 02:45 Baso # (Auto) 0.0 K/mm3 (0.0-0.1) 07/22/21 02:45 Add Manual Diff Complete 07/23/21 04:00 Total Counted 100 07/23/21 04:00 Seg Neutrophils % 70.0 % (40.0-70.0) 07/22/21 02:45 Seg Neuts % (Manual) 48.0 % (40.0-70.0) 07/23/21 04:00 Band Neutrophils % 0 % 07/23/21 04:00 Lymphocytes % (Manual) 45.0 % (13.4-35.0) H 07/23/21 04:00 Reactive Lymphs % (Man) 0 % 07/23/21 04:00 Monocytes % (Manual) 7.0 % (0.0-7.3) 07/23/21 04:00 Eosinophils % (Manual) 0 % (0.0-4.3) 07/23/21 04:00 Basophils % (Manual) 0 % (0.0-1.8) 07/23/21 04:00 Metamyelocytes % 0 % 07/23/21 04:00 Myelocytes % 0 % 07/23/21 04:00 Promyelocytes % 0 % 07/23/21 04:00 Blast Cells % 0 % 07/23/21 04:00 Nucleated RBC % Not Reportable 07/23/21 04:00 Seg Neutrophils # 5.3 K/mm3 (1.8-7.7) 07/22/21 02:45 Seg Neutrophils # Man 2.8 K/mm3 (1.8-7.7) 07/23/21 04:00 Band Neutrophils # 0.0 K/mm3 07/23/21 04:00 Lymphocytes # (Manual) 2.6 K/mm3 (1.2-5.4) 07/23/21 04:00 Abs React Lymphs (Man) 0.0 K/mm3 07/23/21 04:00 Monocytes # (Manual) 0.4 K/mm3 (0.0-0.8) 07/23/21 04:00 Eosinophils # (Manual) 0.0 K/mm3 (0.0-0.4) 07/23/21 04:00 Basophils # (Manual) 0.0 K/mm3 (0.0-0.1) 07/23/21 04:00 Metamyelocytes # 0.0 K/mm3 07/23/21 04:00 Myelocytes # 0.0 K/mm3 07/23/21 04:00 Promyelocytes # 0.0 K/mm3 07/23/21 04:00 Blast Cells # 0.0 K/mm3 07/23/21 04:00 WBC Morphology Not Reportable 07/23/21 04:00 Hypersegmented Neuts Not Reportable 07/23/21 04:00 Hyposegmented Neuts Not Reportable 07/23/21 04:00 Hypogranular Neuts Not Reportable 07/23/21 04:00 Smudge Cells Not Reportable 07/23/21 04:00 Toxic Granulation Not Reportable 07/23/21 04:00 Toxic Vacuolation Not Reportable 07/23/21 04:00 Dohle Bodies Not Reportable 07/23/21 04:00 Pelger-Huet Anomaly Not Reportable 07/23/21 04:00 Cortez Rods Not Reportable 07/23/21 04:00 Platelet Estimate Consistent w auto 07/23/21 04:00 Clumped Platelets Not Reportable 07/23/21 04:00 Plt Clumps, EDTA Not Reportable 07/23/21 04:00 Large Platelets Not Reportable 07/23/21 04:00 Giant Platelets Not Reportable 07/23/21 04:00 Platelet Satelliting Not Reportable 07/23/21 04:00 Plt Morphology Comment Not Reportable 07/23/21 04:00 RBC Morphology Not Reportable 07/23/21 04:00 Dimorphic RBCs Not Reportable 07/23/21 04:00 Polychromasia Not Reportable 07/23/21 04:00 Hypochromasia Not Reportable 07/23/21 04:00 Poikilocytosis Not Reportable 07/23/21 04:00 Anisocytosis 1+ 07/23/21 04:00 Microcytosis Not Reportable 07/23/21 04:00 Macrocytosis Not Reportable 07/23/21 04:00 Spherocytes Not Reportable 07/23/21 04:00 Pappenheimer Bodies Not Reportable 07/23/21 04:00 Sickle Cells Not Reportable 07/23/21 04:00 Target Cells Not Reportable 07/23/21 04:00 Tear Drop Cells Not Reportable 07/23/21 04:00 Ovalocytes Not Reportable 07/23/21 04:00 Helmet Cells Not Reportable 07/23/21 04:00 Torres-[place] Bodies Not Reportable 07/23/21 04:00 [place] Rings Not Reportable 07/23/21 04:00 [place] Cells Not Reportable 07/23/21 04:00 Bite Cells Not Reportable 07/23/21 04:00 Crenated Cell Not Reportable 07/23/21 04:00 Elliptocytes Not Reportable 07/23/21 04:00 Acanthocytes (Spur) Not Reportable 07/23/21 04:00 Rouleaux Not Reportable 07/23/21 04:00 Hemoglobin C Crystals Not Reportable 07/23/21 04:00 Schistocytes Not Reportable 07/23/21 04:00 Malaria parasites Not Reportable 07/23/21 04:00 Gianfranco Bodies Not Reportable 07/23/21 04:00 Hem Pathologist Commnt No 07/23/21 04:00 PT 13.0 Sec. (12.2-14.9) 07/22/21 02:45 INR 0.89 (0.87-1.13) 07/22/21 02:45 APTT 25.8 Sec. (24.2-36.6) 07/22/21 02:45 ABG pH 7.399 pH Units (7.350-7.450) 07/23/21 04:42 ABG pCO2 41.2 mm Hg 07/23/21 04:42 ABG pO2 181.4 mm Hg (80.0-90.0) H 07/23/21 04:42 ABG HCO3 24.9 mmol/L (20.0-26.0) 07/23/21 04:42 ABG O2 Saturation 99.1 % (95.0-99.0) H 07/23/21 04:42 ABG O2 Content 14.9 (0.0-44) 07/23/21 04:42 ABG Base Excess 0.1 mmol/L (-2.0-3.0) 07/23/21 04:42 ABG Hemoglobin 10.6 gm/dl (14.0-18.0) L 07/23/21 04:42 ABG Carboxyhemoglobin 1.0 % (0.0-5.0) 07/23/21 04:42 ABG Methemoglobin 0.4 % (0.0-1.5) 07/23/21 04:42 Oxyhemoglobin 97.7 % (95.0-99.0) 07/23/21 04:42 FiO2 40 % 07/23/21 04:42 Sodium 137 mmol/L (137-145) 07/25/21 09:12 Potassium 4.1 mmol/L (3.6-5.0) 07/25/21 09:12 Chloride 101.6 mmol/L (98-107) 07/25/21 09:12 Carbon Dioxide 28 mmol/L (22-30) 07/25/21 09:12 Anion Gap 12 mmol/L 07/25/21 09:12 BUN 5 mg/dL (9-20) L 07/25/21 09:12 Creatinine 0.9 mg/dL (0.8-1.3) 07/25/21 09:12 Estimated GFR > 60 ml/min 07/25/21 09:12 BUN/Creatinine Ratio 6 % 07/25/21 09:12 Glucose 94 mg/dL (75-100) 07/25/21 09:12 POC Glucose 101 mg/dL (70-105) 07/22/21 17:37 Lactic Acid 1.50 mmol/L (0.7-2.0) 07/22/21 09:00 Calcium 8.2 mg/dL (8.4-10.2) L 07/25/21 09:12 Phosphorus 3.50 mg/dL (2.5-4.5) 07/25/21 09:12 Magnesium 2.30 mg/dL (1.7-2.3) 07/25/21 09:12 Total Bilirubin 0.50 mg/dL (0.1-1.2) 07/22/21 02:45 AST 29 units/L (5-40) 07/22/21 02:45 ALT 19 units/L (7-56) 07/22/21 02:45 Alkaline Phosphatase 67 units/L (35-129) 07/22/21 02:45 Total Creatine Kinase 843 units/L (55-170) H 07/22/21 02:45 Total Protein 8.3 g/dL (6.3-8.2) H 07/22/21 02:45 Albumin 4.3 g/dL (3.9-5) 07/22/21 02:45 Albumin/Globulin Ratio 1.1 % 07/22/21 02:45 TSH 3.360 mlU/mL (0.270-4.200) 07/22/21 02:45 Urine Color Yellow (Yellow) 07/22/21 Unknown Urine Turbidity Clear (Clear) 07/22/21 Unknown Urine pH 5.0 (5.0-7.0) 07/22/21 Unknown Ur Specific [place] 1.024 (1.003-1.030) 07/22/21 Unknown Urine Protein 30 mg/dl mg/dL (Negative) 07/22/21 Unknown Urine Glucose (UA) Neg mg/dL (Negative) 07/22/21 Unknown Urine Ketones Tr mg/dL (Negative) 07/22/21 Unknown Urine Blood Neg (Negative) 07/22/21 Unknown Urine Nitrite Neg (Negative) 07/22/21 Unknown Urine Bilirubin Neg (Negative) 07/22/21 Unknown Urine Urobilinogen 4.0 mg/dL (<2.0) 07/22/21 Unknown Ur Leukocyte Esterase Neg (Negative) 07/22/21 Unknown Urine WBC (Auto) 6.0 /HPF (0.0-6.0) 07/22/21 Unknown Urine RBC (Auto) 2.0 /HPF (0.0-6.0) 07/22/21 Unknown U Epithel Cells (Auto) < 1.0 /HPF (0-13.0) 07/22/21 Unknown Urine Bacteria (Auto) 1+ /HPF (Negative) 07/22/21 Unknown Urine Mucus Few /HPF 07/22/21 Unknown CSF Appearance Clear 07/25/21 15:00 CSF Color Colorless 07/25/21 15:00 CSF WBC 3 /mm3 (1-10) 07/25/21 15:00 CSF RBC 151 /mm3 (0-0) 07/25/21 15:00 CSF Seg Neutrophils 0 % (0-6) 07/25/21 15:00 CSF Lymphocytes % 48.0 % (40-80) 07/25/21 15:00 CSF Reactive Lymphs 0 % 07/25/21 15:00 CSF Monocytes % 52.0 % (15-45) 07/25/21 15:00 CSF Eosinophils % 0 % 07/25/21 15:00 CSF Basophils 0 % 07/25/21 15:00 CSF Pathologist Review C 07/25/21 15:00 CSF Glucose 61 mg/dL 07/25/21 15:00 CSF Total Protein 39 mg/dL 07/25/21 15:00 Vancomycin Trough 8.2 ug/mL (5.0-20.0) 07/24/21 18:18 Salicylates < 0.3 mg/dL (2.8-20.0) L 07/22/21 02:45 Urine Opiates Screen Presumptive negative 07/22/21 Unknown Urine Methadone Screen Presumptive negative 07/22/21 Unknown Acetaminophen 5.0 ug/mL (10.0-30.0) L 07/22/21 03:00 Ur Barbiturates Screen Presumptive negative 07/22/21 Unknown Ur Phencyclidine Scrn Presumptive negative 07/22/21 Unknown Ur Amphetamines Screen Presumptive positive 07/22/21 Unknown U Benzodiazepines Scrn Presumptive negative 07/22/21 Unknown Urine Cocaine Screen Presumptive negative 07/22/21 Unknown U Marijuana (THC) Screen Presumptive positive 07/22/21 Unknown Drugs of Abuse Note Disclamer 07/22/21 Unknown Plasma/Serum Alcohol < 0.01 % (0-0.07) 07/22/21 02:45 Syphilis IgG/IgM Ab Reactive (NonReactive) A 07/22/21 02:45 RPR Titer 1:32 (1:1-1:2) 07/22/21 02:45 Coronavirus (PCR) Negative (Negative) 07/22/21 09:45 Microbiology: Microbiology 07/25/21 15:00 Cerebral Spinal Fluid CSF Culture - Preliminary 07/22/21 02:37 Peripheral/Venous Blood Culture - Preliminary NO GROWTH AFTER 4 DAYS 07/22/21 02:45 Peripheral/Venous Blood Culture - Preliminary NO GROWTH AFTER 4 DAYS 07/22/21 03:33 Tracheal Aspirate Sputum Culture - Final Conrad/IV: Voiding Method Urinal Active Medications - Current Medications Current Medications: Generic Name Dose Route Start Last Admin Trade Name Freq PRN Reason Stop Dose Admin Acetaminophen 650 mg 07/22/21 04:03 Acetaminophen 650 Mg Rect Supp AK Q6H PRN Pain MILD(1-3)/Fever >100.5/ALBERT Acetaminophen 650 mg 07/25/21 10:00 07/25/21 19:02 Acetaminophen 325 Mg Tab PO 650 mg Q6H PRN Administration Pain, Mild (1-3) Famotidine 10 mg 07/23/21 10:00 07/25/21 22:08 Famotidine 10 Mg Tab PO 10 mg BID AMOS Administration Haloperidol Lactate 5 mg 07/22/21 02:01 07/25/21 22:36 Haloperidol Lactate 5 Mg/1 Ml Inj IM 5 mg Q6HR PRN Administration Agitation Heparin Sodium (Porcine) 5,000 unit 07/22/21 10:00 07/25/21 22:08 Heparin 5,000 Unit/1 Ml Vial SUB-Q 5,000 unit Q12HR AMOS Administration Ceftriaxone Sodium 2 gm in 100 mls @ 200 mls/hr 07/22/21 16:00 07/26/21 03:53 Rocephin/Ns 2 Gm/100 Ml IV 200 mls/hr Q12H AMOS Administration Protocol Acyclovir 690 mg/ Sodium 113.8 mls @ 100 mls/hr 07/22/21 14:00 07/25/21 22:37 Chloride IV 100 mls/hr Q8HR AMOS Administration Protocol Vancomycin HCl 1,250 mg/ 275 mls @ 166.667 mls/hr 07/25/21 18:00 07/26/21 05:49 Sodium Chloride IV 166.667 mls/hr Q12H AMOS Administration Sodium Chloride 1,000 mls @ 75 mls/hr 07/25/21 08:30 07/26/21 03:53 Nacl 0.9% 1000 Ml IV 75 mls/hr DIRECT AMOS Administration Nicotine 14 mg 07/25/21 10:00 07/25/21 09:19 Nicotine 14 Mg/24 Hr Patch TD 14 mg QDAY AMOS Administration Ondansetron HCl 4 mg 07/22/21 04:03 Ondansetron 4 Mg/2 Ml Inj IV Q8H PRN Nausea And Vomiting Senna/Docusate Sodium 1 tab 07/24/21 22:00 07/25/21 22:08 Sennosides/Docusate Sodium 8.6/50 Mg Tab PO Not Given QHS AMOS Sodium Chloride 10 ml 07/22/21 10:00 07/25/21 22:08 Sodium Chloride 0.9% 10 Ml Flush Syringe IV 10 ml BID AMOS Administration Sodium Chloride 10 ml 07/22/21 04:03 Sodium Chloride 0.9% 10 Ml Flush Syringe IV PRN PRN LINE FLUSH Nutrition/Malnutrition Assess - Dietary Evaluation Nutrition/Malnutrition Findings: Nutrition Notes Start: 07/22/21 11:24 Freq: Status: Active Protocol: Document 07/24/21 12:28 JANUSZ (Rec: 07/24/21 12:53 JANUSZ [id number]) Nutrition Notes Initial or Follow up Brief Note Current Diagnosis Acute Kidney Injury,Sepsis, Respiratory Failure Other Pertinent Diagnosis HIV/AIDS, Syphilis, Encephalopathy, Polysubstance Abuse, ... Current Diet Clear Liquids Diet (since B ). Height 5 ft 10 in Weight 68.6 kg [place] Body Weight (kg) 75.45 BMI 21.7 Intake Prior to Admission Good Weight change and time frame Pt states being unsure if loss body weight [employer]. No body weight change reported in 3 days. Weight Status Appropriate Subjective/Other Information RD consult for routine F/U on dietary advancement. TF discontinued, diet advanced to PO, No reports available on Pt's PO intake of meals at the time, will assess at F/U. Pt extubated on 07/23 pm, Pt is on Nasal Cannula, O2 saturation @ 100%, according to Physical Assessment History notes, Bedside Swallow Screen passed on 07/13, according to Swallow Screen notes. Percent of energy/protein needs met: Prescribed Clear Liquids Diet provides for energy/protein needs (590 Kcal/16 g) during LOS. #1 Nutrition Diagnosis Inadequate oral intake Comments: TF discontinued, diet advanced to PO, No reports available on Pt's PO intake of meals at the time, will assess at F/U. Diagnosis Progress(for reassessment Resolved documentation) Is patient on ventilator? No Is Patient Ambulatory and/or Out of Bed No REE-(Appling-St. Jeor-confined to bed) 1972.944 Calculation Used for Recommendations Appling-St Jeor Additional Notes Protein: 0.8-1.2 g/Kg ABW; 55- 83 g/day. Fluids: 1 ml/Kcal, or as per MD. Nutrition Intervention Change Diet Order: Continue Clear Liquids Diet, advance to Full Liquids Diet as tolerated. Nutrition Support: Discontinued. Goal #1 Adjust the dietary intervention to better serve Pt's needs and clinical conditions during LOS. Follow-Up By: 07/31/21 Additional Comments Continue monitoring food tolerance, %PO intake of meals , and BM.
[2021-07-26] MEDS: NICOTINE 14 MG/24 HR PATCH TD SCH (12:54)
[2021-07-26] MEDS: HEPARIN 5,000 UNIT/1 ML VIAL SUB-Q SCH (12:55)
[2021-07-26] MEDS: FAMOTIDINE 10 MG TAB PO SCH (12:55)
[2021-07-26 13:29] LABS: CD4/CD8 Ratio 0.85 (0.86-5.00)
--- NOTE | 2021-07-26 17:22 | Progress Note ---
Assessment and Plan Assessment/Plan: #Severe sepsis: Present admission with fever, tachycardia, altered mental status, elevated lactate, elevated creatinine; of unclear etiology, suspect acute meningitis/drug intoxication/neurosyphilis. Blood culture no growth so far. Urinalysis unremarkable. Chest x-ray unremarkable. CT head unremarkable. #NOAH: Likely due to 1. Improving. #Syphilis: Rule out neurosyphilis Recommendations: CSF without evidence of infection Penicillin IM x3 q week Should follow up with [facility] for HIV G. Casie Hilton MD [facility] O: [phone] F: [phone] Subjective Date of service: 07/26/21 Principal diagnosis: sepsis Interval history: Afebrile, white count 3. CSF cultures no growth so far. Fluid analysis with 3 WBC. Objective - Exam Narrative Exam: Physical Exam: Constitutional: Alert, cooperative. No acute distress Head, Ears, Nose: Normocephalic, atraumatic. External ears, nose normal Eyes: Conjunctivae/corneas clear. No icterus. No ptosis. Neck: Supple, no meningeal signs Oral: dentition fair, no thrush Cardiovascular: S1, S2 normal. Respiratory: Good air entry, clear to auscultation bilaterally GI: Soft, non-tender; bowel sounds normal. No peritoneal signs. Musculoskeletal: No pedal edema, no cyanosis. Skin: No rash or abscess Hem/Lymphatic: No palpable cervical or supraclavicular nodes. No lymphangitis Psych: Mood ok. Affect normal Neurological: Awake, alert, oriented. No gross abnormality - Constitutional Vitals: Vital Signs Temp Pulse Resp BP Pulse Ox 98.8 F 62 18 135/74 100 07/26/21 04:02 07/26/21 04:02 07/26/21 04:02 07/26/21 04:02 07/26/21 04:02 Temperature -Last 24 Hours Temperature 98.8 F Temperature 98.4 F Temperature 98.2 F - Labs CBC & Chem 7: 07/25/21 09:12 07/25/21 09:12 Labs: Abnormal lab results 07/23/21 Range/Units 15:28 Lymph Enumerat CD4/CD8 0.85 L (0.86-5.00) Absolute CD3 Count 765 L (840-3060) cells/uL Absolute CD4 Count 351 L (490-1740) cells/uL
--- NOTE | 2021-07-26 18:21 | Discharge Summary ---
Providers - Providers Date of Admission: 07/22/21 04:03 Attending physician: SATNAM BUSH MD 07/22/21 02:01 Consult to Mental Health [CONS] Stat Reason For Exam: psychosis 07/22/21 02:26 Consult to Physician [CONS] Stat Comment: Dr. Olson spoke with Dr. Lindsey @ [phone] Consulting Provider: MARQUISE LINDSEY Physician Instructions: Reason For Exam: intubate sepsis 07/22/21 04:03 Consult to Dietitian/Nutrition [CONS] Routine Physician Instructions: Reason For Exam: Reason for Consult: Diet education 07/22/21 07:51 Consult to Physician [CONS] Urgent Comment: Consulting Provider: JANINE VENTURA Physician Instructions: spoke with ann cordoba/ tatyana Reason For Exam: Sepsis 07/22/21 08:02 Consult to Dietitian/Nutrition [CONS] Routine Physician Instructions: Reason For Exam: Reason for Consult: Write/Manage Tube Feeding Primary care physician: DAVIS BROWN Hospitalization Condition: Critical Disposition: 07 LEFT AGAINST MEDICAL ADVICE Exam - Constitutional Vitals: Temp Pulse Resp BP Pulse Ox 98.8 F 62 18 135/74 100 07/26/21 04:02 07/26/21 04:02 07/26/21 04:02 07/26/21 04:02 07/26/21 04:02 Plan Follow up with: DAVIS BROWN MD [Primary Care Provider] - 7 Days Forms: AMA Form
[2021-07-27 13:11] LABS: HIV-1 RNA QN PCR TNR (())
== END 2021-07-26 16:45 | disposition left against medical advice (07) | DRG 974 ==
LOC: ED 01:56 → CC1 04:03 → 4A 07-25 22:53
PROVIDERS: ADMIT Internal Medicine Geriatric Medicine; ATTEND Internal Medicine
PROC: 4A033R1 Measurement of Arterial Saturation, Peripheral, Percutaneous Approach (ICD-10-PCS; principal; 2021-07-22)
PROC: 5A1945Z Respiratory Ventilation, 24-96 Consecutive Hours (ICD-10-PCS; 2021-07-22)
PROC: 0BH17EZ Insertion of Endotracheal Airway into Trachea, Via Natural or Artificial Opening (ICD-10-PCS; 2021-07-22)
PROC: 009U3ZZ Drainage of Spinal Canal, Percutaneous Approach (ICD-10-PCS; 2021-07-22)
PROC: 009U3ZZ Drainage of Spinal Canal, Percutaneous Approach (ICD-10-PCS; 2021-07-25)
PROC: B01B1ZZ Fluoroscopy of Spinal Cord using Low Osmolar Contrast (ICD-10-PCS; 2021-07-25)
DX: A41.9 Sepsis, unspecified organism (principal); N17.0 Acute kidney failure with tubular necrosis; B20 Human immunodeficiency virus [HIV] disease; J96.01 Acute respiratory failure with hypoxia; G92.9 Unspecified toxic encephalopathy; E87.2 Acidosis; M62.82 Rhabdomyolysis; F10.10 Alcohol abuse, uncomplicated; Y90.9 Presence of alcohol in blood, level not specified; A53.9 Syphilis, unspecified; Z53.29 Procedure and treatment not carried out because of patient's decision for other reasons; F17.200 Nicotine dependence, unspecified, uncomplicated; F29 Unspecified psychosis not due to a substance or known physiological condition; R65.20 Severe sepsis without septic shock; E87.6 Hypokalemia; Z71.6 Tobacco abuse counseling; Z79.899 Other long term (current) drug therapy
CPT/HCPCS: 36415; 36600; 62270; 62328; 70450; 71045; 80048; 80053; 80202; 80307; 80320; 81001; 82024; 82140; 82550; 82803; 82947; 82962; 83735; 84100; 84160; 84443; 85007; 85025; 85027; 85610; 85730; 86592; 86593; 86780; 87040; 87070; 87116; 87205; 87498; 87536; 87799; 89051; 93005; 94002; 94003; 94760; G0378; J3490; G0480; J0133; J0696; J1100; J1170; J1200; J1630; J1644; J2060; J2704; J3010; J3370; J7030; J7040; J7050; U0003